=== PATIENT | female | born 1945 | race Caucasian/White ===

== ENCOUNTER 2018-06-20 13:45 | Inpatient (IN) | payer MEDICARE, MEDICAID ==
[~2018-06-20] VITALS: Ht 165.1 cm; Wt 80.0 kg
[~2018-06-20 13:45] MED LIST: NO HOME MEDS
[2018-06-20] MEDS ORDERED: normal saline 1000ML IV soln IVB ONE (13:55)
[2018-06-20 14:18] LABS: BASOPHILS # (AUTO) 0.1 X10'3 (0-0.2); BASOPHILS % (AUTO) 1.1 % (0-1); EOSINOPHILS # (AUTO) 0.2 X10'3 (0-0.9); EOSINOPHILS % (AUTO) 2.9 % (0-6); HEMATOCRIT 31.9 % (35.0-45.0); HEMOGLOBIN 10.6 g/dl (12.0-16.0); MEAN CORPUSCULAR HEMOGLOBIN 29.8 PG (27.0-31.0); MEAN CORPUSCULAR HGB CONC 33.2 % (33.0-36.5); MEAN PLATELET VOLUME 7.2 FL (7.4-10.4); MONOCYTES # (AUTO) 0.3 X10'3 (0-0.9); MONOCYTES % (AUTO) 5.1 % (2-12); NEUTROPHILS # (AUTO) 4.5 X10'3 (1.8-7.7); NEUTROPHILS % (AUTO) 74.9 % (42-75); PLATELET COUNT 271 X10'3 (140-440); RED BLOOD COUNT 3.55 X10'6 (4.20-5.60); RED CELL DISTRIBUTION WIDTH 16.6 % (11.5-14.5)
[2018-06-20 14:32] LABS: ALANINE AMINOTRANSFERASE 29 U/L (12-78); ALBUMIN 3.1 G/DL (3.4-5.0); ALBUMIN/GLOBULIN RATIO 0.8 (1.1-1.5); ALKALINE PHOSPHATASE 106 IU/L (46-116); ANION GAP 11 (8-16); ASPARTATE AMINO TRANSFERASE 19 U/L (10-37); BLOOD UREA NITROGEN 17 MG/DL (7-18); BUN/CREATININE RATIO 16.3 (6.6-38.0); CALCIUM 8.8 MG/DL (8.5-10.1); CHLORIDE 104 MMOL/L (99-107); CREATININE 1.04 MG/DL (0.40-0.90); GLUCOSE 80 MG/DL (70-104); POTASSIUM 3.6 MMOL/L (3.5-5.1); SODIUM 141 MMOL/L (135-145); TOTAL CARBON DIOXIDE 26.2 MMOL/L (24-32); TOTAL PROTEIN 7.1 G/DL (6.4-8.2); eGFR 52 ML/MIN
[2018-06-20 14:51] LABS: CLARITY,URINE CLEAR (Clear); COLOR,URINE YELLOW (Yellow); GLUCOSE, URINE NEGATIVE (Neg); KETONES,URINE TRACE mg/dl (Neg); LEUKOCYTE ESTERASE ,URINE NEGATIVE (Neg); NITRITES, URINE NEGATIVE (Neg); OCCULT BLOOD,URINE NEGATIVE (Neg); PH,URINE 6.5 (4.8-8.0); PROTEIN,URINE NEGATIVE (Neg)
[2018-06-20 14:52] LABS: UA COLLECTION TYPE CLN CATCH MIDSTREAM
[2018-06-20] MEDS ORDERED: CARB-13 PO (17:37)
[2018-06-20] MEDS ORDERED: QUET25TA34 PO (17:37)
[2018-06-20] MEDS ORDERED: VENL75CA61 PO (17:38)
[2018-06-20] MEDS ORDERED: ondansetron/PF 4mg/2ml inj IV PRN (18:55)
[2018-06-20] MEDS ORDERED: potassium Cl 40MEQ/NS 500ml 500 ML IV PRN ×2 (18:55)
[2018-06-20] MEDS ORDERED: potassium Cl 20 mEq SR tablet PO PRN ×2 (18:55)
[2018-06-20] MEDS ORDERED: acetaminophen 325mg tablet PO PRN ×2 (18:55)
[2018-06-20] MEDS ORDERED: mag hydrox/Alum hydrox/simeth 30ml oral suspension PO PRN (18:55)
[2018-06-20] MEDS ORDERED: magnesium hydroxide 30ml (MOM) UD suspension PO PRN (18:55)
[2018-06-20] MEDS ORDERED: magnesium 4gm in 100ml NS 100 ML IV PRN (18:55)
[2018-06-20] MEDS ORDERED: CARB1TAB44 PO (19:41)
[2018-06-20] MEDS: normal saline 1000ml 1,000 ML IV SCH (21:03)
[2018-06-20] MEDS: QUEtiapine 25mg tablet PO SCH (21:04)
[2018-06-20] MEDS: carbidoba-levodopa 25-100mg tablet PO SCH (21:04)
[2018-06-20 22:00] VITALS: BP 138/54
[2018-06-21] MEDS: temazepam 15mg capsule PO PRN ×2 (01:31→20:50)
[2018-06-21 02:00] VITALS: BP 129/63
[2018-06-21 06:00] VITALS: BP 109/58
[2018-06-21 06:13] LABS: HEMATOCRIT 28.2 % (35.0-45.0); HEMOGLOBIN 9.4 g/dl (12.0-16.0); MEAN CORPUSCULAR HEMOGLOBIN 29.9 PG (27.0-31.0); MEAN CORPUSCULAR HGB CONC 33.3 % (33.0-36.5); MEAN CORPUSCULAR VOLUME 89.6 FL (78-98); MEAN PLATELET VOLUME 7.3 FL (7.4-10.4); PLATELET COUNT 244 X10'3 (140-440); RED BLOOD COUNT 3.15 X10'6 (4.20-5.60); RED CELL DISTRIBUTION WIDTH 16.6 % (11.5-14.5); WHITE BLOOD COUNT 5.6 X10'3 (4.5-11.0)
[2018-06-21 06:23] LABS: ALBUMIN 2.6 G/DL (3.4-5.0); ANION GAP 9 (8-16); BLOOD UREA NITROGEN 17 MG/DL (7-18); BUN/CREATININE RATIO 16.8 (6.6-38.0); CALCIUM 8.3 MG/DL (8.5-10.1); CHLORIDE 106 MMOL/L (99-107); CHOL/HDL RATIO 2.6 (0.00-4.99); CHOLESTEROL 145 MG/DL (0-200); CREATININE 1.01 MG/DL (0.40-0.90); GLUCOSE 97 MG/DL (70-104); HDL CHOLESTEROL 55 MG/DL (35-60); MAGNESIUM 1.4 MG/DL (1.5-2.4); POTASSIUM 3.7 MMOL/L (3.5-5.1); SODIUM 140 MMOL/L (135-145); TRIGLYCERIDES 63 MG/DL (20-135); eGFR 54 ML/MIN
[2018-06-21 06:25] LABS: LDL CHOLESTEROL 79 MG/DL (50-100)
[2018-06-21] MEDS: carbidoba-levodopa 25-100mg tablet PO SCH ×3 (08:00→21:00)
[2018-06-21] MEDS: K and/or MAG REPLACEMENT MC SCH (08:00)
[2018-06-21] MEDS: venlafaxine XR 75mg capsule (Q24H) PO SCH (08:00)
[2018-06-21] MEDS ORDERED: carbidopa/levodopa 10/100mg tab PO SCH (08:00)
[2018-06-21] MEDS: magnesium Cl slow-release 64mg tablet PO PRN ×2 (08:22→19:16)
[2018-06-21] MEDS: normal saline 1000ml 1,000 ML IV SCH ×2 (09:11→23:29)
[2018-06-21 10:00] VITALS: BP 113/44
[2018-06-21] MEDS: traMADol 50MG tablet PO PRN ×2 (14:55→19:17)
[2018-06-21 18:00] VITALS: BP 133/51
[2018-06-21] MEDS: QUEtiapine 25mg tablet PO SCH (20:50)
[2018-06-21 22:00] VITALS: BP 119/39
[2018-06-22] MEDS: traMADol 50MG tablet PO PRN ×5 (04:57→21:20)
[2018-06-22 06:00] VITALS: BP 114/53
[2018-06-22 06:26] LABS: HEMATOCRIT 28.1 % (35.0-45.0); HEMOGLOBIN 9.2 g/dl (12.0-16.0); MEAN CORPUSCULAR HEMOGLOBIN 29.5 PG (27.0-31.0); MEAN CORPUSCULAR HGB CONC 32.8 % (33.0-36.5); MEAN CORPUSCULAR VOLUME 90.1 FL (78-98); MEAN PLATELET VOLUME 7.2 FL (7.4-10.4); PLATELET COUNT 214 X10'3 (140-440); RED BLOOD COUNT 3.12 X10'6 (4.20-5.60); RED CELL DISTRIBUTION WIDTH 16.7 % (11.5-14.5); WHITE BLOOD COUNT 5.5 X10'3 (4.5-11.0)
[2018-06-22 06:59] LABS: ALBUMIN 2.4 G/DL (3.4-5.0); ANION GAP 8 (8-16); BLOOD UREA NITROGEN 17 MG/DL (7-18); BUN/CREATININE RATIO 15.7 (6.6-38.0); CALCIUM 8.2 MG/DL (8.5-10.1); CHLORIDE 105 MMOL/L (99-107); CREATININE 1.08 MG/DL (0.40-0.90); GLUCOSE 103 MG/DL (70-104); MAGNESIUM 1.4 MG/DL (1.5-2.4); POTASSIUM 3.7 MMOL/L (3.5-5.1); SODIUM 138 MMOL/L (135-145); TOTAL CARBON DIOXIDE 24.6 MMOL/L (24-32); eGFR 50 ML/MIN
[2018-06-22] MEDS: carbidoba-levodopa 25-100mg tablet PO SCH ×3 (08:00→21:20)
[2018-06-22] MEDS: K and/or MAG REPLACEMENT MC SCH (08:00)
[2018-06-22] MEDS: enoxaparin 40mg/0.4ml syringe SUBCUT SCH (08:00)
[2018-06-22] MEDS: venlafaxine XR 75mg capsule (Q24H) PO SCH (08:00)
[2018-06-22] MEDS: magnesium Cl slow-release 64mg tablet PO PRN ×3 (08:26→21:33)
[2018-06-22 10:00] VITALS: BP 115/61
[2018-06-22] MEDS: normal saline 1000ml 1,000 ML IV SCH (10:44)
[2018-06-22 14:00] VITALS: BP 110/46
[2018-06-22 18:00] VITALS: BP 116/59
[2018-06-22] MEDS: QUEtiapine 25mg tablet PO SCH (21:20)
[2018-06-22 22:00] VITALS: BP 110/45
[2018-06-23] MEDS: normal saline 1000ml 1,000 ML IV SCH (00:37)
[2018-06-23 06:00] VITALS: BP 103/45
[2018-06-23 06:32] LABS: HEMATOCRIT 27.3 % (35.0-45.0); HEMOGLOBIN 8.9 g/dl (12.0-16.0); MEAN CORPUSCULAR HEMOGLOBIN 29.5 PG (27.0-31.0); MEAN CORPUSCULAR HGB CONC 32.8 % (33.0-36.5); MEAN CORPUSCULAR VOLUME 90.1 FL (78-98); MEAN PLATELET VOLUME 7.4 FL (7.4-10.4); PLATELET COUNT 203 X10'3 (140-440); RED BLOOD COUNT 3.03 X10'6 (4.20-5.60); RED CELL DISTRIBUTION WIDTH 16.6 % (11.5-14.5); WHITE BLOOD COUNT 5.3 X10'3 (4.5-11.0)
[2018-06-23 06:43] LABS: ALBUMIN 2.3 G/DL (3.4-5.0); ANION GAP 8 (8-16); CALCIUM 8.2 MG/DL (8.5-10.1); CHLORIDE 106 MMOL/L (99-107); CREATININE 1.06 MG/DL (0.40-0.90); GLUCOSE 100 MG/DL (70-104); MAGNESIUM 1.5 MG/DL (1.5-2.4); POTASSIUM 3.8 MMOL/L (3.5-5.1); SODIUM 138 MMOL/L (135-145); TOTAL CARBON DIOXIDE 24.1 MMOL/L (24-32); eGFR 51 ML/MIN
[2018-06-23 06:59] LABS: BLOOD UREA NITROGEN 16 MG/DL (7-18); BUN/CREATININE RATIO 15.1 (6.6-38.0)
[2018-06-23] MEDS: K and/or MAG REPLACEMENT MC SCH (07:08)
[2018-06-23] MEDS: carbidoba-levodopa 25-100mg tablet PO SCH (08:45)
[2018-06-23] MEDS: QUEtiapine 25mg tablet PO SCH (08:45)
[2018-06-23] MEDS: venlafaxine XR 75mg capsule (Q24H) PO SCH (08:45)
[2018-06-23] MEDS: enoxaparin 40mg/0.4ml syringe SUBCUT SCH (08:46)
[2018-06-23] MEDS: traMADol 50MG tablet PO PRN (08:46)
== END 2018-06-23 11:50 | DRG 57 ==
LOC: ER 13:46 → ORTHO 4S 18:53
PROVIDERS: ADMIT Family Medicine; ATTEND Family Medicine
DX: G20 Parkinson's disease (principal); I69.354 Hemiplegia and hemiparesis following cerebral infarction affecting left non-dominant side; F12.10 Cannabis abuse, uncomplicated; F41.1 Generalized anxiety disorder; F43.10 Post-traumatic stress disorder, unspecified; G40.909 Epilepsy, unspecified, not intractable, without status epilepticus; I25.10 Atherosclerotic heart disease of native coronary artery without angina pectoris; K74.60 Unspecified cirrhosis of liver; N18.9 Chronic kidney disease, unspecified; M17.11 Unilateral primary osteoarthritis, right knee; R29.6 Repeated falls; Z66 Do not resuscitate; F32.9 Major depressive disorder, single episode, unspecified; Z60.2 Problems related to living alone; M25.461 Effusion, right knee; Z91.19 Patient's noncompliance with other medical treatment and regimen; Z90.49 Acquired absence of other specified parts of digestive tract; Z98.51 Tubal ligation status; Z88.6 Allergy status to analgesic agent; Z88.8 Allergy status to other drugs, medicaments and biological substances; Z79.899 Other long term (current) drug therapy; Z87.891 Personal history of nicotine dependence
CPT/HCPCS: 36415; 70450; 71045; 72128; 72131; 72170; 73564; 80048; 80053; 80061; 81003; 83735; 84443; 85025; 85027; 87070; 96360; 97110; 97161; 97530; 97535; 99285; G0378; J1650; J7030

== ENCOUNTER 2018-10-16 06:23 | Inpatient (IN) | payer MEDICARE, MEDICAID | END 2018-10-18 16:37 | disposition home health service (06) | LOC: ER 06:23 → PCU 3S 09:48 | DX: I48.91 Unspecified atrial fibrillation (principal); G20 Parkinson's disease; F12.90 Cannabis use, unspecified, uncomplicated ==

== ENCOUNTER 2019-01-27 12:10 | Inpatient (IN) | payer MEDICARE, MEDICAID ==
[~2019-01-27] VITALS: Ht 166.4 cm; Wt 79.5 kg
[~2019-01-27 12:10] MED LIST changes: +APIX5TAB3 PO; +CARB1TAB44 PO; +CARCD120C PO; -NO HOME MEDS; +OMEP-50 PO; +QUET25TA34 PO
[2019-01-27 13:45] LABS: BASOPHILS % (AUTO) 0.5 % (0-1); EOSINOPHILS % (AUTO) 0.3 % (0-6); HEMATOCRIT 33.8 % (35.0-45.0); HEMOGLOBIN 11.5 g/dl (12.0-16.0); LYMPHOCYTES # (AUTO) 0.9 X10'3 (1.1-4.8); LYMPHOCYTES % (AUTO) 14.4 % (21-51); MEAN CORPUSCULAR HEMOGLOBIN 31.1 PG (27.0-31.0); MEAN CORPUSCULAR HGB CONC 33.9 g/dL (33.0-36.5); MEAN CORPUSCULAR VOLUME 91.7 FL (78-98); MEAN PLATELET VOLUME 7.2 FL (7.4-10.4); MONOCYTES # (AUTO) 0.3 X10'3 (0-0.9); MONOCYTES % (AUTO) 4.6 % (2-12); NEUTROPHILS # (AUTO) 5.2 X10'3 (1.8-7.7); NEUTROPHILS % (AUTO) 80.2 % (42-75); PLATELET COUNT 184 X10'3 (140-440); RED BLOOD COUNT 3.69 X10'6 (4.20-5.60); RED CELL DISTRIBUTION WIDTH 15.6 % (11.5-14.5); WHITE BLOOD COUNT 6.4 X10'3 (4.5-11.0)
[2019-01-27 14:03] LABS: ALANINE AMINOTRANSFERASE 20 U/L (12-78); ALBUMIN 3.4 G/DL (3.4-5.0); ALBUMIN/GLOBULIN RATIO 0.8 (1.1-1.5); ALKALINE PHOSPHATASE 88 IU/L (46-116); ANION GAP 10 (8-16); ASPARTATE AMINO TRANSFERASE 17 U/L (10-37); BLOOD UREA NITROGEN 34 MG/DL (7-18); BUN/CREATININE RATIO 25.8 (6.6-38.0); CALCIUM 8.8 MG/DL (8.5-10.1); CHLORIDE 104 MMOL/L (99-107); CREATININE 1.32 MG/DL (0.40-0.90); GLUCOSE 80 MG/DL (70-104); POTASSIUM 3.9 MMOL/L (3.5-5.1); SODIUM 140 MMOL/L (135-145); TOTAL CARBON DIOXIDE 25.8 MMOL/L (24-32); TOTAL PROTEIN 7.6 G/DL (6.4-8.2); eGFR 40 ML/MIN
[2019-01-27] MEDS ORDERED: QUET25TA34 PO (17:06)
[2019-01-27] MEDS ORDERED: CARB1TAB23 PO (17:06)
[2019-01-27] MEDS ORDERED: OMEP20CA11 PO (17:06)
[2019-01-27] MEDS ORDERED: diphenhydrAMINE 25mg capsule PO PRN (17:30)
[2019-01-27] MEDS ORDERED: potassium Cl 20 mEq SR tablet PO PRN ×2 (17:30)
[2019-01-27] MEDS ORDERED: potassium CL 10mEq/100ml bag 100 ML IV PRN ×2 (17:30)
[2019-01-27] MEDS ORDERED: magnesium 4gm in 100ml NS 100 ML IV PRN (17:30)
[2019-01-27] MEDS: K and/or MAG REPLACEMENT MC SCH (17:30)
[2019-01-27] MEDS ORDERED: ondansetron/PF 4mg/2ml inj IV PRN (17:30)
[2019-01-27] MEDS ORDERED: magnesium 2GM in 50ml NS 50 ML IV PRN (17:30)
[2019-01-27] MEDS ORDERED: diphenhydrAMINE 50 mg/ml inj IV PRN (17:30)
[2019-01-27] MEDS ORDERED: magnesium Cl slow-release 64mg tablet PO PRN (17:30)
[2019-01-27] MEDS ORDERED: bisacodyl 10mg suppository rectal RC PRN (17:30)
[2019-01-27] MEDS ORDERED: PHEN-824 PO (17:36)
[2019-01-27] MEDS ORDERED: TRAM50TA2 PO (17:36)
[2019-01-27] MEDS ORDERED: PHEN-888 PO (17:38)
[2019-01-27 18:25] LABS: CLARITY,URINE SLIGHTLY CLOUDY (Clear); COLOR,URINE YELLOW (Yellow); GLUCOSE, URINE NEGATIVE (Neg); KETONES,URINE 15 mg/dl (Neg); LEUKOCYTE ESTERASE ,URINE NEGATIVE (Neg); NITRITES, URINE NEGATIVE (Neg); OCCULT BLOOD,URINE LARGE (Neg); PH,URINE 5.5 (4.8-8.0); PROTEIN,URINE NEGATIVE (Neg)
[2019-01-27 18:28] LABS: UA COLLECTION TYPE CLN CATCH MIDSTREAM
[2019-01-27 18:34] LABS: RBC,URINE 50-100 /HPF (0-2); WBC,URINE 0-4 /HPF (0-4)
[2019-01-27] MEDS: normal saline 1000ml 1,000 ML IV SCH (18:34)
[2019-01-27 18:35] LABS: BACTERIA,URINE FEW /HPF (Neg); MUCUS STRANDS NONE SEEN /LPF (Neg); SQUAMOUS EPITHELIAL CELL,UR MANY /LPF (FEW)
[2019-01-27 19:00] VITALS: BP 125/32
--- NOTE | 2019-01-27 19:00 | NUR ---
Patient in room ORTHO 4008. I have received report from ZAYRA Tyler and had the opportunity to ask questions and assume patient care.
[2019-01-27] MEDS: QUEtiapine 25mg tablet PO SCH (19:38)
[2019-01-27] MEDS: carbidoba-levodopa 25-100mg tablet PO SCH (19:38)
[2019-01-27] MEDS: heparin, porcine 5000 units/ml vial SQ SCH (19:39)
[2019-01-27 20:00] VITALS: BP_SYST 100; BP_SYST 101; BP_SYST 125; BP_DIAS 32; BP_DIAS 48; BP_DIAS 57
[2019-01-27] MEDS: traMADol 50MG tablet PO PRN (21:09)
[2019-01-27 22:00] VITALS: BP 100/57
[2019-01-28] MEDS: normal saline 1000ml 1,000 ML IV SCH ×3 (03:56→23:38)
[2019-01-28 06:00] VITALS: BP 113/61
--- NOTE | 2019-01-28 06:00 | NUR ---
Patient in room ORTHO 4008. I have received report from LUISITO IVERSON and had the opportunity to ask questions and assume patient care.
[2019-01-28] MEDS: traMADol 50MG tablet PO PRN ×2 (06:26→16:31)
--- NOTE | 2019-01-28 06:29 | NUR ---
Problems reprioritized. Patient report given, questions answered & plan of care reviewed with ZAYRA Brown.
[2019-01-28 06:34] LABS: BASOPHILS % (AUTO) 0.3 % (0-1); EOSINOPHILS # (AUTO) 0.1 X10'3 (0-0.9); EOSINOPHILS % (AUTO) 3.5 % (0-6); HEMATOCRIT 29.8 % (35.0-45.0); HEMOGLOBIN 10.1 g/dl (12.0-16.0); LYMPHOCYTES # (AUTO) 1.2 X10'3 (1.1-4.8); LYMPHOCYTES % (AUTO) 29.4 % (21-51); MEAN CORPUSCULAR HEMOGLOBIN 31.2 PG (27.0-31.0); MEAN CORPUSCULAR VOLUME 91.7 FL (78-98); MEAN PLATELET VOLUME 7.6 FL (7.4-10.4); MONOCYTES # (AUTO) 0.3 X10'3 (0-0.9); MONOCYTES % (AUTO) 6.2 % (2-12); NEUTROPHILS # (AUTO) 2.5 X10'3 (1.8-7.7); NEUTROPHILS % (AUTO) 60.6 % (42-75); PLATELET COUNT 154 X10'3 (140-440); RED BLOOD COUNT 3.25 X10'6 (4.20-5.60); RED CELL DISTRIBUTION WIDTH 15.9 % (11.5-14.5); WHITE BLOOD COUNT 4.1 X10'3 (4.5-11.0)
[2019-01-28 06:46] LABS: ALANINE AMINOTRANSFERASE 10 U/L (12-78); ALBUMIN 2.9 G/DL (3.4-5.0); ALBUMIN/GLOBULIN RATIO 0.8 (1.1-1.5); ALKALINE PHOSPHATASE 75 IU/L (46-116); ANION GAP 10 (8-16); ASPARTATE AMINO TRANSFERASE 20 U/L (10-37); BILIRUBIN,TOTAL 0.9 MG/DL (0.1-1.0); BLOOD UREA NITROGEN 31 MG/DL (7-18); BUN/CREATININE RATIO 27.9 (6.6-38.0); CALCIUM 7.9 MG/DL (8.5-10.1); CHLORIDE 107 MMOL/L (99-107); CHOL/HDL RATIO 2.6 (0.00-4.99); CHOLESTEROL 143 MG/DL (0-200); CREATININE 1.11 MG/DL (0.40-0.90); GLUCOSE 79 MG/DL (70-104); HDL CHOLESTEROL 54 MG/DL (35-60); LDL CHOLESTEROL 82 MG/DL (50-100); MAGNESIUM 1.5 MG/DL (1.5-2.4); PHOSPHORUS 3.1 MG/DL (2.3-4.5); POTASSIUM 3.8 MMOL/L (3.5-5.1); SODIUM 140 MMOL/L (135-145); TOTAL CARBON DIOXIDE 23.5 MMOL/L (24-32); TOTAL PROTEIN 6.5 G/DL (6.4-8.2); TRIGLYCERIDES 51 MG/DL (20-135); eGFR 48 ML/MIN
[2019-01-28] MEDS: K and/or MAG REPLACEMENT MC SCH (08:00)
[2019-01-28] MEDS: heparin, porcine 5000 units/ml vial SQ SCH ×2 (08:00→19:49)
[2019-01-28] MEDS: pantoprazole 40mg Tablet.DR PO SCH (08:27)
[2019-01-28 10:00] VITALS: BP 120/48
[2019-01-28] MEDS: carbidoba-levodopa 25-100mg tablet PO SCH ×3 (12:53→19:49)
[2019-01-28 18:00] VITALS: BP 101/51
--- NOTE | 2019-01-28 18:05 | NUR ---
Problems reprioritized. Patient report given, questions answered & plan of care reviewed with CELESTINE IVERSON.
[2019-01-28] MEDS ORDERED: benzocaine/menthol oral lozeng 1 EACH BOX MM PRN (18:35)
[2019-01-28] MEDS: QUEtiapine 25mg tablet PO SCH (19:49)
[2019-01-28 22:00] VITALS: BP 103/49
[2019-01-29 06:38] LABS: BASOPHILS % (AUTO) 0.4 % (0-1); EOSINOPHILS # (AUTO) 0.1 X10'3 (0-0.9); EOSINOPHILS % (AUTO) 2.4 % (0-6); HEMATOCRIT 27.5 % (35.0-45.0); HEMOGLOBIN 9.5 g/dl (12.0-16.0); LYMPHOCYTES # (AUTO) 1.2 X10'3 (1.1-4.8); LYMPHOCYTES % (AUTO) 22.9 % (21-51); MEAN CORPUSCULAR HEMOGLOBIN 31.5 PG (27.0-31.0); MEAN CORPUSCULAR HGB CONC 34.4 g/dL (33.0-36.5); MEAN CORPUSCULAR VOLUME 91.4 FL (78-98); MEAN PLATELET VOLUME 7.4 FL (7.4-10.4); MONOCYTES # (AUTO) 0.3 X10'3 (0-0.9); MONOCYTES % (AUTO) 6.2 % (2-12); NEUTROPHILS # (AUTO) 3.5 X10'3 (1.8-7.7); NEUTROPHILS % (AUTO) 68.1 % (42-75); PLATELET COUNT 126 X10'3 (140-440); RED BLOOD COUNT 3.01 X10'6 (4.20-5.60); RED CELL DISTRIBUTION WIDTH 15.4 % (11.5-14.5); WHITE BLOOD COUNT 5.1 X10'3 (4.5-11.0)
[2019-01-29 06:54] LABS: ALANINE AMINOTRANSFERASE 10 U/L (12-78); ALBUMIN 2.5 G/DL (3.4-5.0); ALBUMIN/GLOBULIN RATIO 0.8 (1.1-1.5); ALKALINE PHOSPHATASE 73 IU/L (46-116); ANION GAP 9 (8-16); ASPARTATE AMINO TRANSFERASE 21 U/L (10-37); BILIRUBIN,TOTAL 0.6 MG/DL (0.1-1.0); BLOOD UREA NITROGEN 22 MG/DL (7-18); BUN/CREATININE RATIO 20.8 (6.6-38.0); CHLORIDE 110 MMOL/L (99-107); CREATININE 1.06 MG/DL (0.40-0.90); GLUCOSE 99 MG/DL (70-104); MAGNESIUM 1.4 MG/DL (1.5-2.4); PHOSPHORUS 2.8 MG/DL (2.3-4.5); POTASSIUM 3.8 MMOL/L (3.5-5.1); SODIUM 141 MMOL/L (135-145); TOTAL CARBON DIOXIDE 22.3 MMOL/L (24-32); TOTAL PROTEIN 5.8 G/DL (6.4-8.2); eGFR 51 ML/MIN
[2019-01-29] MEDS: traMADol 50MG tablet PO PRN ×3 (07:46→22:48)
[2019-01-29] MEDS: pantoprazole 40mg Tablet.DR PO SCH (07:48)
[2019-01-29] MEDS: heparin, porcine 5000 units/ml vial SQ SCH ×2 (07:48→19:14)
[2019-01-29] MEDS: normal saline 1000ml 1,000 ML IV SCH ×2 (07:48→20:55)
[2019-01-29] MEDS: K and/or MAG REPLACEMENT MC SCH (08:00)
[2019-01-29] MEDS: carbidoba-levodopa 25-100mg tablet PO SCH ×3 (14:04→20:54)
[2019-01-29 17:00] VITALS: BP 106/57
[2019-01-29] MEDS: QUEtiapine 25mg tablet PO SCH (20:54)
[2019-01-29 22:00] VITALS: BP 102/53
[2019-01-29 22:15] VITALS: BP_SYST 104; BP_SYST 94; BP_DIAS 50; BP_DIAS 51
[2019-01-30 06:00] VITALS: BP 116/66
[2019-01-30 06:05] LABS: BASOPHILS % (AUTO) 0.3 % (0-1); EOSINOPHILS # (AUTO) 0.1 X10'3 (0-0.9); EOSINOPHILS % (AUTO) 2.4 % (0-6); HEMATOCRIT 27.6 % (35.0-45.0); HEMOGLOBIN 9.4 g/dl (12.0-16.0); LYMPHOCYTES # (AUTO) 1.1 X10'3 (1.1-4.8); LYMPHOCYTES % (AUTO) 22.5 % (21-51); MEAN CORPUSCULAR HEMOGLOBIN 31.4 PG (27.0-31.0); MEAN CORPUSCULAR HGB CONC 34.2 g/dL (33.0-36.5); MEAN CORPUSCULAR VOLUME 91.8 FL (78-98); MEAN PLATELET VOLUME 7.6 FL (7.4-10.4); MONOCYTES # (AUTO) 0.4 X10'3 (0-0.9); MONOCYTES % (AUTO) 7.2 % (2-12); NEUTROPHILS # (AUTO) 3.4 X10'3 (1.8-7.7); NEUTROPHILS % (AUTO) 67.6 % (42-75); PLATELET COUNT 124 X10'3 (140-440); RED BLOOD COUNT 3.01 X10'6 (4.20-5.60); WHITE BLOOD COUNT 5.1 X10'3 (4.5-11.0)
[2019-01-30 06:16] LABS: ALANINE AMINOTRANSFERASE 10 U/L (12-78); ALBUMIN 2.3 G/DL (3.4-5.0); ALBUMIN/GLOBULIN RATIO 0.7 (1.1-1.5); ALKALINE PHOSPHATASE 69 IU/L (46-116); ANION GAP 8 (8-16); ASPARTATE AMINO TRANSFERASE 14 U/L (10-37); BILIRUBIN,TOTAL 0.6 MG/DL (0.1-1.0); BLOOD UREA NITROGEN 12 MG/DL (7-18); BUN/CREATININE RATIO 12.6 (6.6-38.0); CALCIUM 7.3 MG/DL (8.5-10.1); CHLORIDE 108 MMOL/L (99-107); CREATININE 0.95 MG/DL (0.40-0.90); GLUCOSE 103 MG/DL (70-104); MAGNESIUM 2.3 MG/DL (1.5-2.4); PHOSPHORUS 2.6 MG/DL (2.3-4.5); POTASSIUM 3.6 MMOL/L (3.5-5.1); SODIUM 139 MMOL/L (135-145); TOTAL CARBON DIOXIDE 22.8 MMOL/L (24-32); TOTAL PROTEIN 5.8 G/DL (6.4-8.2); eGFR 58 ML/MIN
--- NOTE | 2019-01-30 06:30 | NUR ---
Patient report given, questions answered & plan of care reviewed with Shobha IVERSON.
[2019-01-30] MEDS: traMADol 50MG tablet PO PRN ×2 (06:48→19:23)
[2019-01-30] MEDS: K and/or MAG REPLACEMENT MC SCH (08:00)
[2019-01-30] MEDS: pantoprazole 40mg Tablet.DR PO SCH (08:02)
[2019-01-30] MEDS: normal saline 1000ml 1,000 ML IV SCH (08:04)
[2019-01-30] MEDS: heparin, porcine 5000 units/ml vial SQ SCH ×2 (08:04→19:22)
[2019-01-30] MEDS: carbidoba-levodopa 25-100mg tablet PO SCH ×3 (11:13→19:31)
[2019-01-30 17:00] VITALS: BP 130/36
[2019-01-30] MEDS: dronabinol 2.5mg capsule PO PRN (19:23)
[2019-01-30] MEDS: QUEtiapine 25mg tablet PO SCH (19:31)
[2019-01-30 22:00] VITALS: BP 123/43
[2019-01-31] MEDS: traMADol 50MG tablet PO PRN ×2 (04:57→15:08)
[2019-01-31 05:59] LABS: BASOPHILS % (AUTO) 0.4 % (0-1); EOSINOPHILS # (AUTO) 0.1 X10'3 (0-0.9); EOSINOPHILS % (AUTO) 2.6 % (0-6); HEMATOCRIT 27.4 % (35.0-45.0); HEMOGLOBIN 9.4 g/dl (12.0-16.0); LYMPHOCYTES # (AUTO) 0.9 X10'3 (1.1-4.8); LYMPHOCYTES % (AUTO) 17.2 % (21-51); MEAN CORPUSCULAR HEMOGLOBIN 31.1 PG (27.0-31.0); MEAN CORPUSCULAR HGB CONC 34.4 g/dL (33.0-36.5); MEAN CORPUSCULAR VOLUME 90.4 FL (78-98); MEAN PLATELET VOLUME 8.1 FL (7.4-10.4); MONOCYTES # (AUTO) 0.3 X10'3 (0-0.9); NEUTROPHILS # (AUTO) 4.1 X10'3 (1.8-7.7); NEUTROPHILS % (AUTO) 73.8 % (42-75); PLATELET COUNT 153 X10'3 (140-440); RED BLOOD COUNT 3.03 X10'6 (4.20-5.60); RED CELL DISTRIBUTION WIDTH 15.1 % (11.5-14.5); WHITE BLOOD COUNT 5.5 X10'3 (4.5-11.0)
[2019-01-31 06:00] VITALS: BP 110/39
[2019-01-31 06:14] LABS: ALANINE AMINOTRANSFERASE 8 U/L (12-78); ALBUMIN 2.4 G/DL (3.4-5.0); ALBUMIN/GLOBULIN RATIO 0.6 (1.1-1.5); ALKALINE PHOSPHATASE 71 IU/L (46-116); ANION GAP 8 (8-16); ASPARTATE AMINO TRANSFERASE 15 U/L (10-37); BILIRUBIN,TOTAL 0.6 MG/DL (0.1-1.0); BLOOD UREA NITROGEN 13 MG/DL (7-18); BUN/CREATININE RATIO 12.6 (6.6-38.0); CALCIUM 8.2 MG/DL (8.5-10.1); CHLORIDE 107 MMOL/L (99-107); CREATININE 1.03 MG/DL (0.40-0.90); GLUCOSE 106 MG/DL (70-104); MAGNESIUM 1.7 MG/DL (1.5-2.4); PHOSPHORUS 2.7 MG/DL (2.3-4.5); SODIUM 138 MMOL/L (135-145); TOTAL CARBON DIOXIDE 22.8 MMOL/L (24-32); TOTAL PROTEIN 6.1 G/DL (6.4-8.2); eGFR 53 ML/MIN
--- NOTE | 2019-01-31 06:20 | NUR ---
Patient report given, questions answered & plan of care reviewed with Shobha IVERSON.
--- NOTE | 2019-01-31 06:44 | NUR ---
Report received ZAYRA Donovan
[2019-01-31] MEDS: K and/or MAG REPLACEMENT MC SCH (08:00)
[2019-01-31] MEDS: pantoprazole 40mg Tablet.DR PO SCH (09:33)
[2019-01-31] MEDS: heparin, porcine 5000 units/ml vial SQ SCH ×2 (09:34→19:48)
[2019-01-31 10:00] VITALS: BP 112/63
--- NOTE | 2019-01-31 13:00 | NUR ---
Unable to get Orthostatic vitals, pt will not cooperate. PT made attempts
[2019-01-31] MEDS: carbidoba-levodopa 25-100mg tablet PO SCH ×3 (15:07→19:48)
[2019-01-31 18:00] VITALS: BP 124/53
--- NOTE | 2019-01-31 18:43 | NUR ---
Patient in room ORTHO 4012. I have received report from mary jo Yeager and had the opportunity to ask questions and assume patient care.
[2019-01-31] MEDS: QUEtiapine 25mg tablet PO SCH (20:00)
[2019-01-31] MEDS: dronabinol 2.5mg capsule PO PRN (21:08)
[2019-01-31 22:00] VITALS: BP 100/33
[2019-02-01] MEDS: dronabinol 2.5mg capsule PO PRN ×3 (02:46→20:45)
[2019-02-01] MEDS: traMADol 50MG tablet PO PRN ×2 (02:58→15:38)
[2019-02-01 05:00] VITALS: BP 104/47
[2019-02-01 05:38] LABS: BASOPHILS % (AUTO) 0.4 % (0-1); EOSINOPHILS # (AUTO) 0.2 X10'3 (0-0.9); EOSINOPHILS % (AUTO) 2.5 % (0-6); HEMATOCRIT 28.1 % (35.0-45.0); HEMOGLOBIN 9.8 g/dl (12.0-16.0); LYMPHOCYTES # (AUTO) 0.7 X10'3 (1.1-4.8); LYMPHOCYTES % (AUTO) 11.9 % (21-51); MEAN CORPUSCULAR HEMOGLOBIN 31.8 PG (27.0-31.0); MEAN CORPUSCULAR HGB CONC 34.9 g/dL (33.0-36.5); MEAN CORPUSCULAR VOLUME 91.3 FL (78-98); MEAN PLATELET VOLUME 7.4 FL (7.4-10.4); MONOCYTES # (AUTO) 0.4 X10'3 (0-0.9); MONOCYTES % (AUTO) 6.3 % (2-12); NEUTROPHILS # (AUTO) 4.9 X10'3 (1.8-7.7); NEUTROPHILS % (AUTO) 78.9 % (42-75); PLATELET COUNT 174 X10'3 (140-440); RED BLOOD COUNT 3.08 X10'6 (4.20-5.60); RED CELL DISTRIBUTION WIDTH 15.3 % (11.5-14.5); WHITE BLOOD COUNT 6.2 X10'3 (4.5-11.0)
[2019-02-01 05:59] LABS: ALANINE AMINOTRANSFERASE 8 U/L (12-78); ALBUMIN 2.4 G/DL (3.4-5.0); ALBUMIN/GLOBULIN RATIO 0.6 (1.1-1.5); ALKALINE PHOSPHATASE 69 IU/L (46-116); ANION GAP 7 (8-16); ASPARTATE AMINO TRANSFERASE 15 U/L (10-37); BILIRUBIN,TOTAL 0.6 MG/DL (0.1-1.0); BLOOD UREA NITROGEN 18 MG/DL (7-18); BUN/CREATININE RATIO 17.1 (6.6-38.0); CALCIUM 8.4 MG/DL (8.5-10.1); CHLORIDE 105 MMOL/L (99-107); CREATININE 1.05 MG/DL (0.40-0.90); GLUCOSE 121 MG/DL (70-104); MAGNESIUM 1.5 MG/DL (1.5-2.4); POTASSIUM 4.3 MMOL/L (3.5-5.1); SODIUM 138 MMOL/L (135-145); TOTAL CARBON DIOXIDE 25.6 MMOL/L (24-32); TOTAL PROTEIN 6.4 G/DL (6.4-8.2); eGFR 52 ML/MIN
--- NOTE | 2019-02-01 06:35 | NUR ---
Problems reprioritized. Patient report given, questions answered & plan of care reviewed with ART,RN.
[2019-02-01] MEDS: K and/or MAG REPLACEMENT MC SCH (07:54)
[2019-02-01] MEDS: pantoprazole 40mg Tablet.DR PO SCH (08:03)
[2019-02-01] MEDS: heparin, porcine 5000 units/ml vial SQ SCH ×2 (08:03→20:40)
[2019-02-01 10:26] VITALS: BP 135/81
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
[2019-02-01] MEDS: carbidoba-levodopa 25-100mg tablet PO SCH ×3 (12:00→20:42)
--- NOTE | 2019-02-01 12:30 | NUR ---
PATIENT REFUSED HER AFTERNOON MEDICATION STATES "I JUST STOPPED SHAKING, WHY WOULD I TAKE SOMETHING THAT MAKES ME SHAKE."
[2019-02-01] MEDS: duloxetine 30mg CAPSULE.DR PO SCH (14:08)
[2019-02-01 18:00] VITALS: BP 129/54
[2019-02-01] MEDS: QUEtiapine 25mg tablet PO SCH (20:30)
[2019-02-01] MEDS: pramipexole 0.25mg tablet PO SCH (20:43)
[2019-02-01 22:00] VITALS: BP 93/71
[2019-02-02] MEDS: dronabinol 2.5mg capsule PO PRN (02:48)
[2019-02-02 06:00] VITALS: BP 122/55
--- NOTE | 2019-02-02 06:25 | NUR ---
Patient in room ORTHO 4012. I have received report from Hoda IVERSON and had the opportunity to ask questions and assume patient care.
--- NOTE | 2019-02-02 06:40 | NUR ---
Problems reprioritized. Patient report given, questions answered & plan of care reviewed with mary jo mac.
[2019-02-02] MEDS: K and/or MAG REPLACEMENT MC SCH (08:00)
[2019-02-02] MEDS: pantoprazole 40mg Tablet.DR PO SCH (08:45)
[2019-02-02] MEDS: pramipexole 0.25mg tablet PO SCH ×3 (08:45→20:41)
[2019-02-02] MEDS: heparin, porcine 5000 units/ml vial SQ SCH ×2 (08:45→20:41)
[2019-02-02] MEDS: duloxetine 30mg CAPSULE.DR PO SCH (08:45)
[2019-02-02 10:00] VITALS: BP 94/51
[2019-02-02] MEDS: carbidoba-levodopa 25-100mg tablet PO SCH ×3 (12:39→20:41)
[2019-02-02] MEDS: traMADol 50MG tablet PO PRN ×2 (13:46→21:57)
--- NOTE | 2019-02-02 16:46 | NUR ---
PAGER ID: [phone] MESSAGE: Shelly Weller, Ms. Sarmiento in [id number] has complaints of pain/headache, Ultram given at 13:46. Please advise Amee #[phone]
[2019-02-02] MEDS ORDERED: diazepam 2mg tablet PO PRN (17:05)
[2019-02-02 17:30] VITALS: BP 115/79
--- NOTE | 2019-02-02 18:42 | NUR ---
Problems reprioritized. Patient report given, questions answered & plan of care reviewed with Vonda IVERSON from surgical.
--- NOTE | 2019-02-02 18:44 | NUR ---
Received report from Amee IVERSON pt is resting on RA in no apparent distress, call light and items of freq use within reach
[2019-02-02] MEDS: QUEtiapine 25mg tablet PO SCH (20:30)
[2019-02-02 21:00] VITALS: BP 117/55
[2019-02-03 06:00] VITALS: BP 120/82
--- NOTE | 2019-02-03 06:20 | NUR ---
Patient in room ORTHO 4012. I have received report from Vonda IVERSON and had the opportunity to ask questions and assume patient care.
--- NOTE | 2019-02-03 06:22 | NUR ---
Problems reprioritized. Patient report given, questions answered & plan of care reviewed with Jojo IVERSON.
[2019-02-03] MEDS: K and/or MAG REPLACEMENT MC SCH (08:00)
[2019-02-03] MEDS: duloxetine 30mg CAPSULE.DR PO SCH (09:20)
[2019-02-03] MEDS: heparin, porcine 5000 units/ml vial SQ SCH (09:21)
[2019-02-03] MEDS: pantoprazole 40mg Tablet.DR PO SCH (09:21)
[2019-02-03] MEDS: pramipexole 0.25mg tablet PO SCH ×3 (09:21→21:11)
[2019-02-03 10:00] VITALS: BP 97/33
[2019-02-03] MEDS: carbidoba-levodopa 25-100mg tablet PO SCH ×3 (12:56→21:11)
--- NOTE | 2019-02-03 13:49 | NUR ---
PAGER ID: [phone] MESSAGE: Shelly Weller, Ms. Sarmiento in [id number], pulled her IV out. can we leave it out with an order? Please advise thank you Amee
[2019-02-03 17:00] VITALS: BP 108/57
--- NOTE | 2019-02-03 18:15 | NUR ---
Patient in room ORTHO 4012. I have received report from Amee IVERSON and had the opportunity to ask questions and assume patient care. Addendum: 02/04/19 at 0515 by Ellen Brewer RN Amended: Links added.
--- NOTE | 2019-02-03 18:26 | NUR ---
Problems reprioritized. Patient report given, questions answered & plan of care reviewed with Ellen IVERSON.
[2019-02-03] MEDS: QUEtiapine 25mg tablet PO SCH (19:22)
[2019-02-03] MEDS: traMADol 50MG tablet PO PRN (19:32)
[2019-02-03 21:00] VITALS: BP 131/54
[2019-02-03] MEDS: mag hydrox/Alum hydrox/simeth 30ml oral suspension PO PRN (22:32)
[2019-02-04 06:00] VITALS: BP 128/60
--- NOTE | 2019-02-04 06:27 | NUR ---
Problems reprioritized. Patient report given, questions answered & plan of care reviewed with Amee Kimble. Addendum: 02/04/19 at 0627 by Ellen Brewer RN Amended: Links added.
--- NOTE | 2019-02-04 06:30 | NUR ---
Patient in room ORTHO 4012. I have received report from Ellen IVERSON and had the opportunity to ask questions and assume patient care.
[2019-02-04] MEDS: K and/or MAG REPLACEMENT MC SCH (08:00)
[2019-02-04] MEDS: pramipexole 0.25mg tablet PO SCH ×3 (08:30→21:34)
[2019-02-04] MEDS: pantoprazole 40mg Tablet.DR PO SCH (08:30)
[2019-02-04] MEDS: duloxetine 30mg CAPSULE.DR PO SCH (08:30)
[2019-02-04 10:00] VITALS: BP 126/59
[2019-02-04] MEDS: carbidoba-levodopa 25-100mg tablet PO SCH ×3 (12:19→20:10)
[2019-02-04] MEDS: traMADol 50MG tablet PO PRN (12:22)
[2019-02-04 18:00] VITALS: BP 134/54
--- NOTE | 2019-02-04 18:33 | NUR ---
Problems reprioritized. Patient report given, questions answered & plan of care reviewed with Gracie IVERSON.
--- NOTE | 2019-02-04 18:38 | NUR ---
Patient in room ORTHO 4012. I have received report from ZAYRA Lubin and had the opportunity to ask questions and assume patient care. Addendum: 02/04/19 at 1838 by Vanessa Horowitz RN Amended: Links added.
[2019-02-04] MEDS: QUEtiapine 25mg tablet PO SCH (20:10)
[2019-02-04 22:00] VITALS: BP 111/52
[2019-02-05 06:00] VITALS: BP 110/47
--- NOTE | 2019-02-05 06:42 | NUR ---
Problems reprioritized. Patient report given, questions answered & plan of care reviewed with ZAYRA Mirza..
[2019-02-05] MEDS: K and/or MAG REPLACEMENT MC SCH ×3 (08:00→17:06)
[2019-02-05] MEDS: pantoprazole 40mg Tablet.DR PO SCH (08:30)
[2019-02-05] MEDS: pramipexole 0.25mg tablet PO SCH ×3 (09:14→20:28)
[2019-02-05] MEDS: duloxetine 30mg CAPSULE.DR PO SCH (09:14)
[2019-02-05 10:00] VITALS: BP 107/53
[2019-02-05] MEDS: carbidoba-levodopa 25-100mg tablet PO SCH ×3 (12:00→20:28)
--- NOTE | 2019-02-05 16:44 | NUR ---
Pt lying in bed all day. Refusing PT therapies, po meds at 1200 & 1500, and breakfast. Pt states "I just don't feel like doing anything today." Spent approximately one hour attempting to get pt to take 0800 medications ordered by MD. Pt states "we are trying to give her different medications to make her sick." Pt delusional most of the time. Makes inappropriate comments and denies pain. Will continue to monitor affect and medication administration.
[2019-02-05 18:00] VITALS: BP 118/41
--- NOTE | 2019-02-05 18:44 | NUR ---
Problems reprioritized. Patient report given, questions answered & plan of care reviewed with Annabel RN.
[2019-02-05] MEDS: traMADol 50MG tablet PO PRN (20:27)
[2019-02-05] MEDS: QUEtiapine 25mg tablet PO SCH (20:28)
[2019-02-05 22:00] VITALS: BP 92/47
[2019-02-06 06:00] VITALS: BP 110/47
[2019-02-06] MEDS: pantoprazole 40mg Tablet.DR PO SCH (08:32)
[2019-02-06] MEDS: pramipexole 0.25mg tablet PO SCH ×2 (08:33→13:08)
[2019-02-06] MEDS: duloxetine 30mg CAPSULE.DR PO SCH (08:33)
[2019-02-06 10:00] VITALS: BP 92/35
[2019-02-06] MEDS: carbidoba-levodopa 25-100mg tablet PO SCH ×3 (13:08→20:57)
[2019-02-06 14:00] VITALS: BP_SYST 120; BP_SYST 135; BP_SYST 70; BP_DIAS 38; BP_DIAS 39; BP_DIAS 44
--- NOTE | 2019-02-06 16:50 | NUR ---
reassessment: Pt seen by KELLEE regarding low PO 25% meals/refusing past 4 days down from 100% previous. Per pt reports r/t different anti-reflux medication here than she receives at home; RN is aware home med is not on formulary. Pt was agreeable to angeli lai w/ cranberry juice TIDWM per pt request. Pt requests B12, vitamin D, and Zinc supplementation; KELLEE [email or web address] MD regarding MVI/mineral per approval. [facility] 02/06 pt does report not in full control of GI at this time since needs assistance to make it to bathroom. Will continue to monitor. Rec: 1. continue heart healthy diet per MD 2. MVI/mineral per MD approval 3. angeli lai and cranberry juice TID for GI issues per pt request 4. weekly wts Addendum: 02/06/19 at [address] Amended: Links added.
[2019-02-06 18:00] VITALS: BP 120/44
--- NOTE | 2019-02-06 18:24 | NUR ---
Patient in room ORTHO 4012. I have received report from Yuki IVERSON and had the opportunity to ask questions and assume patient care.
[2019-02-06] MEDS: QUEtiapine 25mg tablet PO SCH (20:30)
[2019-02-06] MEDS: pramipexole 1mg tablet PO SCH (21:00)
[2019-02-06 22:00] VITALS: BP_SYST 122; BP_SYST 79; BP_DIAS 54; BP_DIAS 55
[2019-02-07] VITALS (8 sets, daily range): BP systolic 70–153; BP diastolic 28–84
[2019-02-07] MEDS: traMADol 50MG tablet PO PRN ×2 (05:36→21:18)
--- NOTE | 2019-02-07 06:20 | NUR ---
Problems reprioritized. Patient report given, questions answered & plan of care reviewed with Yuki IVERSON.
[2019-02-07] MEDS: K and/or MAG REPLACEMENT MC SCH (08:00)
[2019-02-07] MEDS: duloxetine 30mg CAPSULE.DR PO SCH (09:11)
[2019-02-07] MEDS: pantoprazole 40mg Tablet.DR PO SCH (09:11)
[2019-02-07] MEDS: pramipexole 1mg tablet PO SCH ×3 (09:12→21:15)
[2019-02-07] MEDS ORDERED: normal saline 1000ml 1,000 ML IVB ONE (11:10)
[2019-02-07] MEDS: carbidoba-levodopa 25-100mg tablet PO SCH ×3 (12:30→21:15)
--- NOTE | 2019-02-07 18:17 | NUR ---
Problems reprioritized. Patient report given, questions answered & plan of care reviewed with ZAYRA Donovan.
--- NOTE | 2019-02-07 18:17 | NUR ---
Patient in room ORTHO 4012. I have received report from Yuki IVERSON and had the opportunity to ask questions and assume patient care.
[2019-02-07] MEDS: QUEtiapine 25mg tablet PO SCH (21:15)
[2019-02-07] MEDS: clonazePAM 0.5mg tablet PO SCH (21:15)
[2019-02-08 06:00] VITALS: BP 116/49
--- NOTE | 2019-02-08 06:15 | NUR ---
Patient in room ORTHO 4012. I have received report from Venus IVERSON and had the opportunity to ask questions and assume patient care.
--- NOTE | 2019-02-08 06:25 | NUR ---
Problems reprioritized. Patient report given, questions answered & plan of care reviewed with Amee IVERSON.
[2019-02-08] MEDS: K and/or MAG REPLACEMENT MC SCH (08:00)
[2019-02-08] MEDS: clonazePAM 0.5mg tablet PO SCH ×2 (08:05→20:22)
[2019-02-08] MEDS: pramipexole 1mg tablet PO SCH ×3 (08:05→20:22)
[2019-02-08] MEDS: pantoprazole 40mg Tablet.DR PO SCH (08:05)
[2019-02-08] MEDS: duloxetine 30mg CAPSULE.DR PO SCH (08:05)
[2019-02-08] MEDS: traMADol 50MG tablet PO PRN ×2 (08:11→20:31)
[2019-02-08 08:30] VITALS: BP_SYST 127; BP_SYST 57; BP_SYST 86; BP_DIAS 34; BP_DIAS 40; BP_DIAS 48
[2019-02-08 10:00] VITALS: BP 113/66
[2019-02-08] MEDS: carbidoba-levodopa 25-100mg tablet PO SCH ×3 (12:21→20:22)
[2019-02-08 17:45] VITALS: BP_SYST 105; BP_SYST 77; BP_SYST 94; BP_DIAS 27; BP_DIAS 38; BP_DIAS 46
[2019-02-08 18:00] VITALS: BP 105/38
--- NOTE | 2019-02-08 18:20 | NUR ---
Problems reprioritized. Patient report given, questions answered & plan of care reviewed with Radha Johns
[2019-02-08] MEDS: QUEtiapine 25mg tablet PO SCH (20:22)
[2019-02-08 22:00] VITALS: BP_SYST 105; BP_SYST 58; BP_SYST 78; BP_DIAS 32; BP_DIAS 44
[2019-02-09] VITALS (10 sets, daily range): BP systolic 80–162; BP diastolic 29–128
--- NOTE | 2019-02-09 06:15 | NUR ---
report received from ZAYRA Garcia
--- NOTE | 2019-02-09 06:38 | NUR ---
Problems reprioritized. Patient report given, questions answered & plan of care reviewed with Shobha IVERSON.
[2019-02-09] MEDS: K and/or MAG REPLACEMENT MC SCH (08:00)
[2019-02-09] MEDS: pramipexole 1mg tablet PO SCH ×3 (08:55→20:30)
[2019-02-09] MEDS: clonazePAM 0.5mg tablet PO SCH ×2 (08:55→20:29)
[2019-02-09] MEDS: duloxetine 30mg CAPSULE.DR PO SCH (08:56)
[2019-02-09] MEDS: traMADol 50MG tablet PO PRN ×2 (08:56→16:42)
[2019-02-09] MEDS: midodrine 5mg tablet PO SCH ×4 (08:57→16:39)
[2019-02-09] MEDS: pantoprazole 40mg Tablet.DR PO SCH (08:57)
--- NOTE | 2019-02-09 09:30 | NUR ---
relayed BP results/charted to Dr Ely. confirmation to administer x1 Midodrine 5mg tab
[2019-02-09] MEDS: carbidoba-levodopa 25-100mg tablet PO SCH ×3 (12:52→20:29)
--- NOTE | 2019-02-09 14:26 | NUR ---
reassessment: Pt PO 25-50% avg meals PO increased to 100% lunch today per RN reporting good appetite. Marinol has been d/c but pt meeting needs if 50% PO continues. If returns to persistent 25-50% like previous would benefit from appetite stimulant per MD approval; KELLEE d/w RN. Per RN pt low PO mainly when in pain. LBM 02/09. Will continue to monitor. Rec: 1. advance to regular diet per MD 2. MVI/mineral per MD approval 3. angeli lai and cranberry juice TID for GI issues per pt request 4. weekly wts Addendum: 02/09/19 at [address] Amended: Links added.
--- NOTE | 2019-02-09 18:15 | NUR ---
Report given to ZAYRA Tyler
--- NOTE | 2019-02-09 19:00 | NUR ---
Patient in room ORTHO 4012. I have received report from Shobha IVERSON and had the opportunity to ask questions and assume patient care.
[2019-02-09] MEDS: QUEtiapine 25mg tablet PO SCH (20:29)
[2019-02-10] VITALS (10 sets, daily range): BP systolic 39–140; BP diastolic 15–80
[2019-02-10] MEDS: duloxetine 30mg CAPSULE.DR PO SCH (07:44)
[2019-02-10] MEDS: pantoprazole 40mg Tablet.DR PO SCH (07:44)
[2019-02-10] MEDS: clonazePAM 0.5mg tablet PO SCH ×2 (07:45→19:59)
[2019-02-10] MEDS: pramipexole 1mg tablet PO SCH ×3 (07:45→19:59)
[2019-02-10] MEDS: midodrine 5mg tablet PO SCH (07:45)
[2019-02-10] MEDS: K and/or MAG REPLACEMENT MC SCH (08:00)
[2019-02-10] MEDS: carbidoba-levodopa 25-100mg tablet PO SCH ×3 (12:44→19:58)
[2019-02-10] MEDS: traMADol 50MG tablet PO PRN (12:44)
[2019-02-10] MEDS: midodrine tablet 2.5 MG TABLET PO SCH ×2 (13:07→16:38)
[2019-02-10] MEDS: QUEtiapine 25mg tablet PO SCH (19:59)
--- NOTE | 2019-02-11 04:30 | NUR ---
Pt to bedside commode. She got up by herself not using the call light and was found on her right knee leaning on her bed. was notified and if right knee hurts may do an xray. Addendum: 02/11/19 at 0534 by Ellen Brewer RN Amended: Links added.
--- NOTE | 2019-02-11 05:10 | NUR ---
I informed Nursing supervisor print line that patient was found half on the floor and half on the bed after getting herself off the bsc. Pt c/o of right knee hurting somewhat and it is slightly red from hitting floor or pressure from the floor.
[2019-02-11 06:00] VITALS: BP 94/46
--- NOTE | 2019-02-11 06:25 | NUR ---
Patient in room ORTHO 4012. I have received report from Ellen IVERSON and had the opportunity to ask questions and assume patient care.
[2019-02-11] MEDS: K and/or MAG REPLACEMENT MC SCH (07:24)
[2019-02-11] MEDS: midodrine tablet 2.5 MG TABLET PO SCH ×3 (07:42→16:43)
[2019-02-11] MEDS: pramipexole 1mg tablet PO SCH ×3 (07:42→20:24)
[2019-02-11] MEDS: duloxetine 30mg CAPSULE.DR PO SCH (07:42)
[2019-02-11] MEDS: clonazePAM 0.5mg tablet PO SCH ×2 (07:42→20:23)
[2019-02-11] MEDS: pantoprazole 40mg Tablet.DR PO SCH (07:42)
[2019-02-11 12:19] VITALS: BP_SYST 109; BP_SYST 123; BP_SYST 58; BP_DIAS 28; BP_DIAS 36; BP_DIAS 58
--- NOTE | 2019-02-11 12:25 | NUR ---
PAGER ID: [phone] MESSAGE: hSelly Ely, yanni - Ms. Sarmiento in rm [id number] orthostatic vitals were positive. sup - 123/58, sit 109/36, stand 58/28 Thank you Amee #[phone]
[2019-02-11] MEDS: carbidoba-levodopa 25-100mg tablet PO SCH ×3 (12:59→20:24)
[2019-02-11 16:51] VITALS: BP 124/38
--- NOTE | 2019-02-11 16:59 | NUR ---
PAGER ID: [phone] MESSAGE: Shelly Ely, the IV for Ms. Sarmiento in came out, shall we place another or leave it out? Please advise Thank you Amee [phone]
--- NOTE | 2019-02-11 17:09 | NUR ---
Per , okay to leave IV out
[2019-02-11 18:00] VITALS: BP 124/36
--- NOTE | 2019-02-11 18:14 | NUR ---
Patient in room ORTHO 4012. I have received report from Amee IVERSON and had the opportunity to ask questions and assume patient care.
--- NOTE | 2019-02-11 18:18 | NUR ---
Problems reprioritized. Patient report given, questions answered & plan of care reviewed with Venus IVERSON.
[2019-02-11] MEDS: QUEtiapine 25mg tablet PO SCH (20:24)
[2019-02-11 22:00] VITALS: BP_SYST 113; BP_SYST 132; BP_DIAS 52; BP_DIAS 55
[2019-02-11] MEDS: traMADol 50MG tablet PO PRN (22:32)
[2019-02-12 06:00] VITALS: BP 96/46
--- NOTE | 2019-02-12 06:15 | NUR ---
Patient in room ORTHO 4012. I have received report from and had the opportunity to ask questions and assume patient care ZAYRA Donovan
[2019-02-12 08:00] VITALS: BP 100/33
[2019-02-12] MEDS: K and/or MAG REPLACEMENT MC SCH (08:00)
[2019-02-12] MEDS: pantoprazole 40mg Tablet.DR PO SCH (09:08)
[2019-02-12] MEDS: clonazePAM 0.5mg tablet PO SCH ×2 (09:08→20:11)
[2019-02-12] MEDS: duloxetine 30mg CAPSULE.DR PO SCH (09:09)
[2019-02-12] MEDS: pramipexole 1mg tablet PO SCH ×3 (09:09→20:11)
[2019-02-12] MEDS: midodrine 5mg tablet PO SCH ×3 (09:10→17:44)
[2019-02-12 10:00] VITALS: BP 100/33
[2019-02-12] MEDS: carbidoba-levodopa 25-100mg tablet PO SCH ×4 (12:00→20:11)
--- NOTE | 2019-02-12 12:00 | NUR ---
pt refused 1200 c-levadopa states makes her shake worse. pt agree to take the next dose thinking she may be getting too much.
[2019-02-12] MEDS: traMADol 50MG tablet PO PRN (14:51)
[2019-02-12 17:00] VITALS: BP 135/55
--- NOTE | 2019-02-12 18:30 | NUR ---
Patient in room ORTHO 4012. I have received report from Shobha IVERSON and had the opportunity to ask questions and assume patient care.
--- NOTE | 2019-02-12 18:30 | NUR ---
Problems reprioritized. Patient report given, questions answered & plan of care reviewed with ZAYRA Donovan.
[2019-02-12] MEDS ORDERED: ibuprofen 200mg tablet PO PRN (18:40)
[2019-02-12 19:44] LABS: BASOPHILS # (AUTO) 0.1 X10'3 (0-0.2); BASOPHILS % (AUTO) 0.9 % (0-1); EOSINOPHILS # (AUTO) 0.5 X10'3 (0-0.9); EOSINOPHILS % (AUTO) 4.7 % (0-6); HEMATOCRIT 31.5 % (35.0-45.0); HEMOGLOBIN 10.5 g/dl (12.0-16.0); LYMPHOCYTES # (AUTO) 1.8 X10'3 (1.1-4.8); LYMPHOCYTES % (AUTO) 16.1 % (21-51); MEAN CORPUSCULAR HEMOGLOBIN 30.1 PG (27.0-31.0); MEAN CORPUSCULAR HGB CONC 33.4 g/dL (33.0-36.5); MEAN PLATELET VOLUME 6.7 FL (7.4-10.4); MONOCYTES # (AUTO) 0.8 X10'3 (0-0.9); MONOCYTES % (AUTO) 7.4 % (2-12); NEUTROPHILS # (AUTO) 7.9 X10'3 (1.8-7.7); NEUTROPHILS % (AUTO) 70.9 % (42-75); PLATELET COUNT 360 X10'3 (140-440); RED CELL DISTRIBUTION WIDTH 15.7 % (11.5-14.5); WHITE BLOOD COUNT 11.1 X10'3 (4.5-11.0)
[2019-02-12] MEDS: QUEtiapine 25mg tablet PO SCH (20:11)
[2019-02-12 21:17] LABS: CLARITY,URINE CLOUDY (Clear); COLOR,URINE YELLOW (Yellow); GLUCOSE, URINE NEGATIVE (Neg); KETONES,URINE NEGATIVE (Neg); LEUKOCYTE ESTERASE ,URINE SMALL (Neg); NITRITES, URINE POSITIVE (Neg); OCCULT BLOOD,URINE NEGATIVE (Neg); PROTEIN,URINE NEGATIVE (Neg)
[2019-02-12 21:24] LABS: UA COLLECTION TYPE CLN CATCH MIDSTREAM
[2019-02-12 21:39] LABS: BACTERIA,URINE 4+ /HPF (Neg); MUCUS STRANDS MODERATE /LPF (Neg); RBC,URINE 0-2 /HPF (0-2); SQUAMOUS EPITHELIAL CELL,UR MODERATE /LPF (FEW); WBC,URINE 50-100 /HPF (0-4)
[2019-02-12 22:00] VITALS: BP 117/48
[2019-02-12 23:37] VITALS: BP_SYST 102; BP_SYST 79; BP_DIAS 38; BP_DIAS 48
[2019-02-13] VITALS (9 sets, daily range): BP systolic 94–142; BP diastolic 45–60
--- NOTE | 2019-02-13 06:18 | NUR ---
Problems reprioritized. Patient report given, questions answered & plan of care reviewed with Shobha IVERSON.
[2019-02-13] MEDS: K and/or MAG REPLACEMENT MC SCH (08:00)
[2019-02-13] MEDS: traMADol 50MG tablet PO PRN (08:57)
[2019-02-13] MEDS: pantoprazole 40mg Tablet.DR PO SCH (08:57)
[2019-02-13] MEDS: duloxetine 30mg CAPSULE.DR PO SCH (08:58)
[2019-02-13] MEDS: pramipexole 1mg tablet PO SCH ×3 (08:58→21:17)
[2019-02-13] MEDS: midodrine 5mg tablet PO SCH ×3 (08:58→15:51)
[2019-02-13] MEDS: clonazePAM 0.5mg tablet PO SCH ×2 (08:58→21:17)
[2019-02-13] MEDS: carbidoba-levodopa 25-100mg tablet PO SCH ×3 (13:10→21:17)
[2019-02-13] MEDS: sulfamethoxazole/trimethoprim DS (800/160mg) tablet PO SCH ×2 (13:11→21:17)
[2019-02-13] MEDS: QUEtiapine 25mg tablet PO SCH (21:17)
--- NOTE | 2019-02-14 06:05 | NUR ---
Patient in room ORTHO 4012. I have received report from Julianna IVERSON and had the opportunity to ask questions and assume patient care.
--- NOTE | 2019-02-14 06:58 | NUR ---
Problems reprioritized. Patient report given, questions answered & plan of care reviewed with ZAYRA Lackey.
[2019-02-14 07:22] VITALS: BP 116/31
[2019-02-14] MEDS: K and/or MAG REPLACEMENT MC SCH (08:00)
[2019-02-14] MEDS: sulfamethoxazole/trimethoprim DS (800/160mg) tablet PO SCH ×2 (08:09→20:13)
[2019-02-14] MEDS: duloxetine 30mg CAPSULE.DR PO SCH (08:09)
[2019-02-14] MEDS: pantoprazole 40mg Tablet.DR PO SCH (08:10)
[2019-02-14] MEDS: midodrine 5mg tablet PO SCH ×3 (08:10→15:09)
[2019-02-14] MEDS: pramipexole 1mg tablet PO SCH ×3 (08:10→20:12)
[2019-02-14] MEDS: clonazePAM 0.5mg tablet PO SCH ×2 (08:10→20:14)
[2019-02-14 08:54] VITALS: BP 115/65
[2019-02-14 10:36] VITALS: BP 102/46
[2019-02-14] MEDS: carbidoba-levodopa 25-100mg tablet PO SCH ×3 (11:52→20:14)
--- NOTE | 2019-02-14 15:07 | NUR ---
reassessment: Pt PO 25-50% avg meals but also had sandwich prior to lunch today per RN endorsing better appetite. LBM 02/13. Pt does not like ONS options available so unable to send. Cottage cheese w/ fruit at breakfasts added for additional protein needs. Will conitnue to monitor. Rec: 1. advance to regular diet per MD 2. MVI/mineral per MD approval 3. angeli lai and cranberry juice TID for GI issues per pt request 4. weekly wts Addendum: 02/14/19 at [address] Amended: Links added. Addendum: 02/14/19 at [address] reassessment: Pt PO 25-50% avg meals but also had sandwich prior to lunch today per RN endorsing better appetite. LBM 02/13. Pt does not like ONS options available so unable to send. Ensure pudding at breakfasts added for additional protein needs. Will continue to monitor. Rec: 1. advance to regular diet per MD 2. MVI/mineral per MD approval 3. angeli lai and cranberry juice TID for GI issues per pt request 4. weekly wts
[2019-02-14 17:00] VITALS: BP 141/64
[2019-02-14] MEDS: lactobacillus rhamnosus 10,000 MMU CELLS/CAPSULE PO SCH (20:13)
[2019-02-14] MEDS: QUEtiapine 25mg tablet PO SCH (20:14)
[2019-02-14 22:00] VITALS: BP 110/58
[2019-02-14 23:52] VITALS: BP_SYST 104; BP_SYST 75; BP_DIAS 34; BP_DIAS 38
--- NOTE | 2019-02-15 06:16 | NUR ---
Problems reprioritized. Patient report given, questions answered & plan of care reviewed with Julianna IVERSON.
[2019-02-15 06:49] VITALS: BP 136/51
[2019-02-15] MEDS: lactobacillus rhamnosus 10,000 MMU CELLS/CAPSULE PO SCH ×2 (07:50→20:58)
[2019-02-15] MEDS: clonazePAM 0.5mg tablet PO SCH ×2 (07:50→20:56)
[2019-02-15] MEDS: pantoprazole 40mg Tablet.DR PO SCH (07:50)
[2019-02-15] MEDS: duloxetine 30mg CAPSULE.DR PO SCH (07:50)
[2019-02-15] MEDS: sulfamethoxazole/trimethoprim DS (800/160mg) tablet PO SCH ×2 (07:50→20:57)
[2019-02-15] MEDS: K and/or MAG REPLACEMENT MC SCH (07:51)
[2019-02-15] MEDS: pramipexole 1mg tablet PO SCH ×3 (07:51→20:57)
[2019-02-15] MEDS: midodrine 5mg tablet PO SCH ×3 (07:51→16:06)
[2019-02-15 08:00] VITALS: BP_SYST 105; BP_SYST 120; BP_DIAS 32; BP_DIAS 45
[2019-02-15 10:21] VITALS: BP 120/45
[2019-02-15] MEDS: carbidoba-levodopa 25-100mg tablet PO SCH ×3 (12:28→20:58)
[2019-02-15] MEDS: midodrine tablet 2.5 MG TABLET PO SCH ×2 (14:21→16:06)
[2019-02-15 18:00] VITALS: BP 126/48
[2019-02-15] MEDS: QUEtiapine 25mg tablet PO SCH (20:57)
[2019-02-15 22:00] VITALS: BP_SYST 119; BP_SYST 150; BP_SYST 94; BP_DIAS 38; BP_DIAS 62; BP_DIAS 66
--- NOTE | 2019-02-16 02:15 | NUR ---
Around 015, activity aide found patient laying on floor flat on her back, with the bed on her left and the bedside commode at her feet. Bedside commode was found empty. A nurse also said she heard a thump from the room next door, and went to the room. Pt stated she hit her head when asked first nurse on scene. Charge nurse did not see any redness or swelling on her head. Pt vital signs taken (97.6 F, 58 HR, 96% O2 on RA, RR 18, 143/49, 04/27 pain) and Dr. Ely alerted at 0215. No new orders at this time. When I asked pt how bad the pain was, and she stated it was "not bad' and that she didn't need any pain medicine for it. Will continue to monitor. Addendum: 02/16/19 at 0547 by Venus Rojas RN I asked pt what happened, she said she used the bedside commode and wanted to get back to bed, and then she fell. I asked pt why she did not use the call light and she said she thought she could do it herself. Nurses and nursing program coordinator did not find the bedside commode to be used upon finding the pt, and helped her to the commode after the incident. Pt also has been switched to a bed with a bed alarm as of 219.
[2019-02-16 06:00] VITALS: BP 124/42
--- NOTE | 2019-02-16 06:25 | NUR ---
Patient report given, questions answered & plan of care reviewed with Karishma IVERSON.
--- NOTE | 2019-02-16 06:40 | NUR ---
Patient in room ORTHO 4012. I have received report from ZAYRA Donovan and had the opportunity to ask questions and assume patient care.
[2019-02-16] MEDS: clonazePAM 0.5mg tablet PO SCH ×2 (07:34→22:07)
[2019-02-16] MEDS: pantoprazole 40mg Tablet.DR PO SCH (07:34)
[2019-02-16] MEDS: sulfamethoxazole/trimethoprim DS (800/160mg) tablet PO SCH ×2 (07:34→22:07)
[2019-02-16] MEDS: lactobacillus rhamnosus 10,000 MMU CELLS/CAPSULE PO SCH ×2 (07:34→22:04)
[2019-02-16] MEDS: duloxetine 30mg CAPSULE.DR PO SCH (07:35)
[2019-02-16] MEDS: pramipexole 1mg tablet PO SCH ×3 (07:35→22:05)
[2019-02-16] MEDS: traMADol 50MG tablet PO PRN (07:35)
[2019-02-16] MEDS: midodrine 5mg tablet PO SCH ×3 (07:36→16:01)
[2019-02-16] MEDS: midodrine tablet 2.5 MG TABLET PO SCH ×3 (07:39→16:01)
[2019-02-16] MEDS: K and/or MAG REPLACEMENT MC SCH (08:00)
[2019-02-16 09:00] VITALS: BP_SYST 110; BP_SYST 118; BP_DIAS 60; BP_DIAS 65; BP_DIAS 68
[2019-02-16 10:00] VITALS: BP 110/68
[2019-02-16] MEDS: carbidoba-levodopa 25-100mg tablet PO SCH ×3 (12:49→22:06)
--- NOTE | 2019-02-16 17:32 | NUR ---
Pt up with PT today. PT stated pt appears to be freezing up when she goes to move. She used to shuffle and move easier and now she is freezing more. Possibly d/t progression of Parkinson's. Safety has been maintained throughout the day. Remains occasionally confused but a/ox3 for them most part. Takes PO pills better in applesauce. Awaiting placement for d/c.
[2019-02-16 18:00] VITALS: BP 148/47
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
[2019-02-16] MEDS: QUEtiapine 25mg tablet PO SCH (20:30)
[2019-02-16 22:00] VITALS: BP 131/48
[2019-02-17 06:00] VITALS: BP_SYST 108; BP_SYST 85; BP_DIAS 44; BP_DIAS 57
--- NOTE | 2019-02-17 06:32 | NUR ---
Problems reprioritized. Patient report given, questions answered & plan of care reviewed with Hina IVERSON.
[2019-02-17 07:09] VITALS: BP_SYST 108; BP_SYST 85; BP_DIAS 44; BP_DIAS 57
[2019-02-17] MEDS: midodrine 5mg tablet PO SCH ×3 (08:00→17:42)
[2019-02-17] MEDS: pramipexole 1mg tablet PO SCH ×3 (08:00→22:06)
[2019-02-17] MEDS: K and/or MAG REPLACEMENT MC SCH (08:00)
[2019-02-17] MEDS: pantoprazole 40mg Tablet.DR PO SCH (08:30)
[2019-02-17] MEDS: lactobacillus rhamnosus 10,000 MMU CELLS/CAPSULE PO SCH ×2 (09:46→19:24)
[2019-02-17] MEDS: clonazePAM 0.5mg tablet PO SCH ×2 (09:48→19:24)
[2019-02-17] MEDS: duloxetine 30mg CAPSULE.DR PO SCH (09:48)
[2019-02-17] MEDS: midodrine tablet 2.5 MG TABLET PO SCH ×3 (09:49→17:42)
[2019-02-17] MEDS: sulfamethoxazole/trimethoprim DS (800/160mg) tablet PO SCH ×2 (09:51→19:24)
[2019-02-17 10:00] VITALS: BP 107/67
[2019-02-17] MEDS: carbidoba-levodopa 25-100mg tablet PO SCH ×3 (13:09→22:05)
[2019-02-17 18:00] VITALS: BP 161/57
--- NOTE | 2019-02-17 18:15 | NUR ---
Patient in room ORTHO 4012. I have received report from Hina IVERSON and had the opportunity to ask questions and assume patient care. Checked on patient, she is sitting at bedside, somewhat confused. Re-oriented patient to situation. Bed alarm and tab alarm in place, will continue to monitor.
[2019-02-17 20:00] VITALS: BP_SYST 120; BP_SYST 66; BP_SYST 94; BP_DIAS 32; BP_DIAS 34; BP_DIAS 51
[2019-02-17 22:00] VITALS: BP 134/53
[2019-02-17] MEDS: QUEtiapine 25mg tablet PO SCH (22:06)
--- NOTE | 2019-02-18 06:40 | NUR ---
Problems reprioritized. Patient report given, questions answered & plan of care reviewed with Hina IVERSON and Jorge L IVERSON.
[2019-02-18 07:10] VITALS: BP 120/51
[2019-02-18] MEDS: K and/or MAG REPLACEMENT MC SCH (08:00)
[2019-02-18] MEDS: pramipexole 1mg tablet PO SCH ×3 (09:26→20:11)
[2019-02-18] MEDS: lactobacillus rhamnosus 10,000 MMU CELLS/CAPSULE PO SCH ×2 (09:26→19:42)
[2019-02-18] MEDS: sulfamethoxazole/trimethoprim DS (800/160mg) tablet PO SCH ×2 (09:26→19:43)
[2019-02-18] MEDS: clonazePAM 0.5mg tablet PO SCH ×2 (09:26→19:43)
[2019-02-18] MEDS: pantoprazole 40mg Tablet.DR PO SCH (09:26)
[2019-02-18] MEDS: midodrine 5mg tablet PO SCH ×3 (09:27→16:08)
[2019-02-18] MEDS: duloxetine 30mg CAPSULE.DR PO SCH (09:27)
[2019-02-18] MEDS: midodrine tablet 2.5 MG TABLET PO SCH ×3 (09:27→16:08)
[2019-02-18] MEDS: mag hydrox/Alum hydrox/simeth 30ml oral suspension PO PRN (09:30)
[2019-02-18 10:00] VITALS: BP 133/60
[2019-02-18 10:30] VITALS: BP_SYST 133; BP_SYST 62; BP_SYST 98; BP_DIAS 31; BP_DIAS 46; BP_DIAS 60
[2019-02-18] MEDS: carbidoba-levodopa 25-100mg tablet PO SCH ×3 (12:00→19:42)
[2019-02-18 18:00] VITALS: BP 151/56
--- NOTE | 2019-02-18 18:32 | NUR ---
Problems reprioritized. Patient report given, questions answered & plan of care reviewed with Kim IVERSON.
--- NOTE | 2019-02-18 18:44 | NUR ---
Patient in room ORTHO 4012. I have received report from Wendy IVERSON and had the opportunity to ask questions and assume patient care.
[2019-02-18] MEDS: QUEtiapine 25mg tablet PO SCH (19:43)
[2019-02-18 20:00] VITALS: BP_SYST 126; BP_SYST 59; BP_SYST 82; BP_DIAS 40; BP_DIAS 43; BP_DIAS 49
[2019-02-18 22:00] VITALS: BP 126/43
[2019-02-19 06:00] VITALS: BP 86/30
--- NOTE | 2019-02-19 06:21 | NUR ---
Problems reprioritized. Patient report given, questions answered & plan of care reviewed with Olu IVERSON.
--- NOTE | 2019-02-19 07:08 | NUR ---
Patient in room ORTHO 4012. I have received report from ZAYRA Alvarez and had the opportunity to ask questions and assume patient care.
[2019-02-19 08:00] VITALS: BP_SYST 108; BP_SYST 155; BP_DIAS 56; BP_DIAS 63
[2019-02-19] MEDS: K and/or MAG REPLACEMENT MC SCH (08:00)
[2019-02-19] MEDS: clonazePAM 0.5mg tablet PO SCH ×2 (08:00→19:55)
[2019-02-19] MEDS: pantoprazole 40mg Tablet.DR PO SCH (08:05)
[2019-02-19] MEDS: duloxetine 30mg CAPSULE.DR PO SCH (08:05)
[2019-02-19] MEDS: lactobacillus rhamnosus 10,000 MMU CELLS/CAPSULE PO SCH ×2 (08:05→19:56)
[2019-02-19] MEDS: pramipexole 1mg tablet PO SCH ×3 (08:07→19:55)
[2019-02-19] MEDS: sulfamethoxazole/trimethoprim DS (800/160mg) tablet PO SCH ×2 (08:07→19:56)
[2019-02-19] MEDS: midodrine tablet 2.5 MG TABLET PO SCH ×3 (08:08→15:17)
[2019-02-19] MEDS: midodrine 5mg tablet PO SCH ×3 (08:08→15:18)
[2019-02-19] MEDS: carbidoba-levodopa 25-100mg tablet PO SCH ×3 (12:18→19:55)
[2019-02-19 18:00] VITALS: BP 125/47
[2019-02-19] MEDS ORDERED: lactose-reduced food (Ensure Enlive) - 237ml bottle PO SCH (18:00)
--- NOTE | 2019-02-19 18:20 | NUR ---
Orienteer documentation: I have reviewed and agree with all interventions, assessments performed and documented by Farheen IVEROSN.
[2019-02-19] MEDS: magnesium hydroxide 30ml (MOM) UD suspension PO PRN (19:55)
[2019-02-19] MEDS: QUEtiapine 25mg tablet PO SCH (19:56)
[2019-02-19 20:00] VITALS: BP_SYST 54; BP_SYST 80; BP_SYST 86; BP_DIAS 25; BP_DIAS 38; BP_DIAS 54
[2019-02-19 22:00] VITALS: BP 80/38
--- NOTE | 2019-02-20 06:23 | NUR ---
Problems reprioritized. Patient report given, questions answered & plan of care reviewed with mary jo Levine.
[2019-02-20 06:43] VITALS: BP 109/43
[2019-02-20] MEDS: duloxetine 30mg CAPSULE.DR PO SCH (07:27)
[2019-02-20] MEDS: pramipexole 1mg tablet PO SCH ×3 (07:27→19:52)
[2019-02-20] MEDS: lactobacillus rhamnosus 10,000 MMU CELLS/CAPSULE PO SCH ×2 (07:28→19:52)
[2019-02-20] MEDS: K and/or MAG REPLACEMENT MC SCH (07:28)
[2019-02-20] MEDS: clonazePAM 0.5mg tablet PO SCH ×2 (07:28→19:52)
[2019-02-20] MEDS: sulfamethoxazole/trimethoprim DS (800/160mg) tablet PO SCH (07:28)
[2019-02-20] MEDS: midodrine 5mg tablet PO SCH ×3 (07:28→16:37)
[2019-02-20] MEDS: midodrine tablet 2.5 MG TABLET PO SCH ×3 (07:28→16:37)
[2019-02-20] MEDS: pantoprazole 40mg Tablet.DR PO SCH (07:33)
[2019-02-20 08:00] VITALS: BP_SYST 104; BP_SYST 116; BP_SYST 123; BP_DIAS 55; BP_DIAS 61; BP_DIAS 63
[2019-02-20 10:08] VITALS: BP 116/55
[2019-02-20] MEDS: carbidoba-levodopa 25-100mg tablet PO SCH ×3 (11:26→19:51)
--- NOTE | 2019-02-20 14:02 | NUR ---
reassessment: Pt PO 50% avg meals fluctuating; refused meals yesterday. No significant BM documented since 02/09 received MoM 02/19 w/ no routine bowel care. [employer]ELLEE [employer] regarding routine bowel care per approval. IF truly constipation likely effecting PO as well. Will continue to monitor. Rec: 1. advance to regular diet per MD 2. MVI/mineral per MD approval 3. angeli lai and cranberry juice TID for GI issues per pt request 4. ensure puddings at breakfast 5. routine bowel care 6. weekly wts Addendum: 02/20/19 at [address] Amended: Links added.
[2019-02-20] MEDS: QUEtiapine 25mg tablet PO SCH (19:51)
[2019-02-20] MEDS: magnesium hydroxide 30ml (MOM) UD suspension PO PRN (19:51)
[2019-02-20 20:00] VITALS: BP_SYST 81; BP_SYST 96; BP_DIAS 44; BP_DIAS 53
[2019-02-20 22:00] VITALS: BP 96/53
[2019-02-21 06:00] VITALS: BP 112/54
--- NOTE | 2019-02-21 06:44 | NUR ---
Problems reprioritized. Patient report given, questions answered & plan of care reviewed with ZAYRA HAYS.
[2019-02-21] MEDS: K and/or MAG REPLACEMENT MC SCH (08:00)
[2019-02-21] MEDS: midodrine 5mg tablet PO SCH ×3 (08:15→17:49)
[2019-02-21] MEDS: midodrine tablet 2.5 MG TABLET PO SCH ×3 (08:15→17:49)
[2019-02-21] MEDS: clonazePAM 0.5mg tablet PO SCH ×2 (08:15→19:59)
[2019-02-21] MEDS: duloxetine 30mg CAPSULE.DR PO SCH (08:15)
[2019-02-21] MEDS: lactobacillus rhamnosus 10,000 MMU CELLS/CAPSULE PO SCH ×2 (08:15→19:59)
[2019-02-21] MEDS: pramipexole 1mg tablet PO SCH ×3 (08:15→20:01)
[2019-02-21] MEDS: pantoprazole 40mg Tablet.DR PO SCH (08:15)
[2019-02-21 10:00] VITALS: BP_SYST 118; BP_SYST 60; BP_SYST 76; BP_SYST 96; BP_DIAS 26; BP_DIAS 46; BP_DIAS 53; BP_DIAS 69
[2019-02-21] MEDS: diazepam 5mg tablet PO PRN (11:09)
[2019-02-21] MEDS: traMADol 50MG tablet PO PRN (14:15)
[2019-02-21] MEDS: carbidoba-levodopa 25-100mg tablet PO SCH ×3 (14:15→19:59)
[2019-02-21] MEDS: magnesium hydroxide 30ml (MOM) UD suspension PO PRN ×2 (17:48→17:57)
--- NOTE | 2019-02-21 17:57 | NUR ---
pt states that her stomach is upset, I offered MOM again, she said she would take it this time, I gave it to her but she would only drink half of it.
[2019-02-21 18:00] VITALS: BP 138/56
--- NOTE | 2019-02-21 18:52 | NUR ---
Patient in room ORTHO 4012. I have received report from mary jo Santamaria and had the opportunity to ask questions and assume patient care.
[2019-02-21] MEDS: QUEtiapine 25mg tablet PO SCH (19:59)
[2019-02-21 20:00] VITALS: BP_SYST 88; BP_SYST 89; BP_DIAS 42; BP_DIAS 47
[2019-02-21 22:00] VITALS: BP 89/42
[2019-02-22 06:00] VITALS: BP 89/51
--- NOTE | 2019-02-22 06:44 | NUR ---
Problems reprioritized. Patient report given, questions answered & plan of care reviewed with mary jo Santamaria.
[2019-02-22 08:00] VITALS: BP_SYST 101; BP_SYST 96; BP_SYST 97; BP_DIAS 54; BP_DIAS 68; BP_DIAS 78
[2019-02-22] MEDS: K and/or MAG REPLACEMENT MC SCH (08:00)
[2019-02-22] MEDS: pantoprazole 40mg Tablet.DR PO SCH (08:43)
[2019-02-22] MEDS: pramipexole 1mg tablet PO SCH ×3 (08:43→20:51)
[2019-02-22] MEDS: clonazePAM 0.5mg tablet PO SCH ×2 (08:43→20:41)
[2019-02-22] MEDS: duloxetine 30mg CAPSULE.DR PO SCH (08:43)
[2019-02-22] MEDS: midodrine tablet 2.5 MG TABLET PO SCH ×3 (08:43→16:51)
[2019-02-22] MEDS: midodrine 5mg tablet PO SCH ×3 (08:43→16:52)
[2019-02-22] MEDS: lactobacillus rhamnosus 10,000 MMU CELLS/CAPSULE PO SCH ×2 (08:44→20:00)
[2019-02-22 10:00] VITALS: BP 130/83
[2019-02-22] MEDS: diazepam 5mg tablet PO PRN (11:34)
[2019-02-22] MEDS: carbidoba-levodopa 25-100mg tablet PO SCH ×3 (13:36→20:46)
[2019-02-22 18:00] VITALS: BP 105/56
--- NOTE | 2019-02-22 18:29 | NUR ---
Patient in room ORTHO 4012. I have received report from Hina IVERSON and had the opportunity to ask questions and assume patient care.
[2019-02-22] MEDS: fludrocortisone acetate 0.1mg tablet PO SCH (20:41)
[2019-02-22] MEDS: QUEtiapine 25mg tablet PO SCH (20:47)
[2019-02-22 22:00] VITALS: BP 116/55
--- NOTE | 2019-02-22 22:55 | NUR ---
unable to get orthostatic vitals Addendum: 02/22/19 at 3088 by Danilo Altamirano RN Amended: Links added.
[2019-02-23] MEDS: diazepam 5mg tablet PO PRN (05:44)
[2019-02-23 06:00] VITALS: BP 124/71
--- NOTE | 2019-02-23 06:00 | NUR ---
Patient in room ORTHO 4012. I have received report from Danilo IVERSON and had the opportunity to ask questions and assume patient care.
--- NOTE | 2019-02-23 06:24 | NUR ---
Problems reprioritized. Patient report given, questions answered & plan of care reviewed with Dian IVERSON.
[2019-02-23] MEDS: K and/or MAG REPLACEMENT MC SCH (08:00)
[2019-02-23] MEDS: clonazePAM 0.5mg tablet PO SCH ×2 (08:17→21:09)
[2019-02-23] MEDS: pramipexole 1mg tablet PO SCH ×3 (08:18→21:10)
[2019-02-23] MEDS: midodrine 5mg tablet PO SCH ×3 (08:19→16:10)
[2019-02-23] MEDS: duloxetine 30mg CAPSULE.DR PO SCH (08:20)
[2019-02-23] MEDS: fludrocortisone acetate 0.1mg tablet PO SCH (08:21)
[2019-02-23] MEDS: lactobacillus rhamnosus 10,000 MMU CELLS/CAPSULE PO SCH ×2 (08:23→21:09)
[2019-02-23] MEDS: pantoprazole 40mg Tablet.DR PO SCH (08:23)
[2019-02-23] MEDS: midodrine tablet 2.5 MG TABLET PO SCH ×3 (08:26→16:10)
[2019-02-23 10:00] VITALS: BP 174/54
[2019-02-23 12:49] VITALS: BP 102/73
[2019-02-23] MEDS: carbidoba-levodopa 25-100mg tablet PO SCH ×3 (13:04→21:09)
--- NOTE | 2019-02-23 18:17 | NUR ---
Problems reprioritized. Patient report given, questions answered & plan of care reviewed with Jayson IVERSON.
[2019-02-23 20:00] VITALS: BP_SYST 101; BP_SYST 143; BP_SYST 97; BP_DIAS 54; BP_DIAS 68; BP_DIAS 78
[2019-02-23] MEDS: QUEtiapine 25mg tablet PO SCH (21:10)
[2019-02-23 22:00] VITALS: BP_SYST 130; BP_SYST 143; BP_SYST 160; BP_DIAS 104; BP_DIAS 110; BP_DIAS 69
[2019-02-24] VITALS (7 sets, daily range): BP systolic 85–138; BP diastolic 43–100
[2019-02-24 06:26] LABS: BASOPHILS % (AUTO) 0.6 % (0-1); EOSINOPHILS # (AUTO) 0.4 X10'3 (0-0.9); EOSINOPHILS % (AUTO) 6.6 % (0-6); HEMATOCRIT 27.9 % (35.0-45.0); HEMOGLOBIN 9.6 g/dl (12.0-16.0); LYMPHOCYTES # (AUTO) 1.3 X10'3 (1.1-4.8); LYMPHOCYTES % (AUTO) 22.2 % (21-51); MEAN CORPUSCULAR HEMOGLOBIN 30.8 PG (27.0-31.0); MEAN CORPUSCULAR HGB CONC 34.2 g/dL (33.0-36.5); MEAN CORPUSCULAR VOLUME 89.8 FL (78-98); MEAN PLATELET VOLUME 6.8 FL (7.4-10.4); MONOCYTES # (AUTO) 0.3 X10'3 (0-0.9); MONOCYTES % (AUTO) 5.4 % (2-12); NEUTROPHILS # (AUTO) 3.9 X10'3 (1.8-7.7); NEUTROPHILS % (AUTO) 65.2 % (42-75); PLATELET COUNT 274 X10'3 (140-440); RED BLOOD COUNT 3.11 X10'6 (4.20-5.60); RED CELL DISTRIBUTION WIDTH 15.8 % (11.5-14.5); WHITE BLOOD COUNT 5.9 X10'3 (4.5-11.0)
--- NOTE | 2019-02-24 06:32 | NUR ---
Patient in room ORTHO 4012. I have received report from Jayson IVERSON and had the opportunity to ask questions and assume patient care.
[2019-02-24 06:39] LABS: ALANINE AMINOTRANSFERASE 13 U/L (12-78); ALBUMIN/GLOBULIN RATIO 0.7 (1.1-1.5); ALKALINE PHOSPHATASE 99 IU/L (46-116); ANION GAP 6 (8-16); ASPARTATE AMINO TRANSFERASE 18 U/L (10-37); BILIRUBIN,TOTAL 0.5 MG/DL (0.1-1.0); BLOOD UREA NITROGEN 29 MG/DL (7-18); BUN/CREATININE RATIO 12.3 (6.6-38.0); CALCIUM 8.9 MG/DL (8.5-10.1); CHLORIDE 105 MMOL/L (99-107); CREATININE 2.36 MG/DL (0.40-0.90); GLUCOSE 98 MG/DL (70-104); MAGNESIUM 1.9 MG/DL (1.5-2.4); PHOSPHORUS 3.6 MG/DL (2.3-4.5); POTASSIUM 4.3 MMOL/L (3.5-5.1); SODIUM 140 MMOL/L (135-145); TOTAL CARBON DIOXIDE 29.1 MMOL/L (24-32); TOTAL PROTEIN 7.3 G/DL (6.4-8.2); eGFR 20 ML/MIN
[2019-02-24] MEDS: K and/or MAG REPLACEMENT MC SCH (08:00)
[2019-02-24] MEDS: fludrocortisone acetate 0.1mg tablet PO SCH (08:14)
[2019-02-24] MEDS: duloxetine 30mg CAPSULE.DR PO SCH (08:19)
[2019-02-24] MEDS: midodrine 5mg tablet PO SCH ×3 (08:27→16:28)
[2019-02-24] MEDS: midodrine tablet 2.5 MG TABLET PO SCH ×3 (08:27→16:28)
[2019-02-24] MEDS: clonazePAM 0.5mg tablet PO SCH ×2 (08:32→19:57)
[2019-02-24] MEDS: pantoprazole 40mg Tablet.DR PO SCH (08:32)
[2019-02-24] MEDS: lactobacillus rhamnosus 10,000 MMU CELLS/CAPSULE PO SCH ×2 (08:32→19:57)
[2019-02-24] MEDS: pramipexole 1mg tablet PO SCH ×3 (08:32→20:00)
[2019-02-24] MEDS ORDERED: normal saline 1000ml 1,000 ML IV ONE (09:20)
[2019-02-24] MEDS: carbidoba-levodopa 25-100mg tablet PO SCH ×3 (12:52→19:57)
[2019-02-24] MEDS: traMADol 50MG tablet PO PRN (12:54)
[2019-02-24] MEDS: normal saline 1000ml 1,000 ML IV SCH ×2 (16:33→22:40)
--- NOTE | 2019-02-24 18:10 | NUR ---
Patient in room ORTHO 4012. I have received report from Jorge L IVERSON with Dian IVERSON and had the opportunity to ask questions and assume patient care.
--- NOTE | 2019-02-24 18:16 | NUR ---
Problems reprioritized. Patient report given, questions answered & plan of care reviewed with Grace IVERSON.
[2019-02-24] MEDS: QUEtiapine 25mg tablet PO SCH (19:57)
--- NOTE | 2019-02-24 21:25 | NUR ---
I heard a call out for help from Ruby the PCT and I saw patient on her hands and knees on the floor with Nely supporting her, with gait belt on and FWW in front of the patient. Nely had taken patient to the bathroom and was walking her back to bed when the pt started leaning over the FWW and and her legs just started to collapse under her. Nely had asked her to stand up straight with the FWW before all of a sudden her legs just collapsed. Nely tried to keep patient off floor with the gait belt but patient unable to stand up straight and her legs gave away. I along with another aide and another RN assisted patient off the floor and onto the bed. No abrasion or bruises noted to her legs, knees. She did have some pinkness to the palms of her hands where she pressed them against the floor. Pre and Post vitals remain within normal range. I will call the interim controller Hospitalist and inform the pt's nurse; Grace when she comes back from break.
--- NOTE | 2019-02-24 22:19 | NUR ---
Dr. Almeida the night time Hospitalist was notified of pt's fall and that there was no injury noted. No orders given at this time.
--- NOTE | 2019-02-24 22:20 | NUR ---
Nursing Informatics Manager made aware of pt fall. will continue to monitor.
[2019-02-25] VITALS (7 sets, daily range): BP systolic 71–149; BP diastolic 18–85
[2019-02-25] MEDS: normal saline 1000ml 1,000 ML IV SCH ×2 (05:07→12:00)
--- NOTE | 2019-02-25 06:23 | NUR ---
Problems reprioritized. Patient report given, questions answered & plan of care reviewed with Jorge L RN with Dian RN.
[2019-02-25 06:25] LABS: ALANINE AMINOTRANSFERASE 10 U/L (12-78); ALBUMIN 2.6 G/DL (3.4-5.0); ALBUMIN/GLOBULIN RATIO 0.7 (1.1-1.5); ALKALINE PHOSPHATASE 85 IU/L (46-116); ANION GAP 8 (8-16); ASPARTATE AMINO TRANSFERASE 11 U/L (10-37); BILIRUBIN,TOTAL 0.3 MG/DL (0.1-1.0); BLOOD UREA NITROGEN 23 MG/DL (7-18); BUN/CREATININE RATIO 14.6 (6.6-38.0); CALCIUM 8.2 MG/DL (8.5-10.1); CHLORIDE 108 MMOL/L (99-107); CREATININE 1.57 MG/DL (0.40-0.90); GLUCOSE 90 MG/DL (70-104); MAGNESIUM 1.7 MG/DL (1.5-2.4); PHOSPHORUS 3.2 MG/DL (2.3-4.5); POTASSIUM 4.2 MMOL/L (3.5-5.1); SODIUM 142 MMOL/L (135-145); TOTAL CARBON DIOXIDE 26.2 MMOL/L (24-32); TOTAL PROTEIN 6.5 G/DL (6.4-8.2); eGFR 32 ML/MIN
--- NOTE | 2019-02-25 06:35 | NUR ---
Patient in room ORTHO 4012. I have received report from Grace IVERSON and had the opportunity to ask questions and assume patient care.
[2019-02-25 06:52] LABS: BASOPHILS % (AUTO) 0.4 % (0-1); EOSINOPHILS # (AUTO) 0.5 X10'3 (0-0.9); HEMATOCRIT 27.1 % (35.0-45.0); HEMOGLOBIN 9.1 g/dl (12.0-16.0); LYMPHOCYTES # (AUTO) 1.4 X10'3 (1.1-4.8); LYMPHOCYTES % (AUTO) 25.4 % (21-51); MEAN CORPUSCULAR HEMOGLOBIN 30.5 PG (27.0-31.0); MEAN CORPUSCULAR HGB CONC 33.6 g/dL (33.0-36.5); MEAN PLATELET VOLUME 6.9 FL (7.4-10.4); MONOCYTES # (AUTO) 0.3 X10'3 (0-0.9); MONOCYTES % (AUTO) 4.8 % (2-12); NEUTROPHILS # (AUTO) 3.3 X10'3 (1.8-7.7); NEUTROPHILS % (AUTO) 60.4 % (42-75); PLATELET COUNT 236 X10'3 (140-440); RED BLOOD COUNT 2.98 X10'6 (4.20-5.60); RED CELL DISTRIBUTION WIDTH 16.2 % (11.5-14.5); WHITE BLOOD COUNT 5.4 X10'3 (4.5-11.0)
[2019-02-25] MEDS: K and/or MAG REPLACEMENT MC SCH (08:00)
[2019-02-25] MEDS: lactobacillus rhamnosus 10,000 MMU CELLS/CAPSULE PO SCH ×2 (08:00→20:04)
[2019-02-25] MEDS ORDERED: duloxetine 30mg CAPSULE.DR PO SCH (08:00)
[2019-02-25] MEDS: clonazePAM 0.5mg tablet PO SCH ×2 (08:00→20:03)
[2019-02-25] MEDS: pantoprazole 40mg Tablet.DR PO SCH (08:30)
[2019-02-25] MEDS: fludrocortisone acetate 0.1mg tablet PO SCH (08:51)
[2019-02-25] MEDS: pramipexole 1mg tablet PO SCH ×3 (08:51→20:04)
[2019-02-25] MEDS: midodrine 5mg tablet PO SCH ×3 (08:52→15:38)
[2019-02-25] MEDS: duloxetine 30mg CAPSULE.DR PO SCH (08:52)
[2019-02-25] MEDS: midodrine tablet 2.5 MG TABLET PO SCH ×3 (08:52→15:37)
--- NOTE | 2019-02-25 09:50 | NUR ---
Reassessment: PO intake slowly improving with documented 50-75% PO intake most recent meals. Pt with small and moderate BM 02/24, still only with PRN bowel care. Per MD notes pt confused with possible base line dementia, conservatorship has been requested, SW and CM following. Will continue to follow. Rec: 1. advance to regular diet per MD 2. MVI/mineral per MD approval 3. angeli lai and cranberry juice TID for GI issues per pt request 4. ensure puddings at breakfast 5. routine bowel care 6. weekly wts Addendum: 02/25/19 at [address] Amended: Links added.
[2019-02-25] MEDS: carbidoba-levodopa 25-100mg tablet PO SCH ×3 (12:49→20:03)
[2019-02-25] MEDS: diazepam 5mg tablet PO PRN (15:38)
--- NOTE | 2019-02-25 15:58 | NUR ---
I have reviewed and agree with all interventions, assessments performed and documented by Jorge L IVERSON.
--- NOTE | 2019-02-25 18:05 | NUR ---
Patient in room ORTHO 4009. I have received report from Dian IVERSON and had the opportunity to ask questions and assume patient care.
--- NOTE | 2019-02-25 18:25 | NUR ---
Problems reprioritized. Patient report given, questions answered & plan of care reviewed with Carlos IVERSON.
[2019-02-25] MEDS: QUEtiapine 25mg tablet PO SCH (20:03)
[2019-02-26] MEDS: normal saline 1000ml 1,000 ML IV SCH (00:35)
[2019-02-26 06:00] VITALS: BP 113/43
--- NOTE | 2019-02-26 06:14 | NUR ---
Problems reprioritized. Patient report given, questions answered & plan of care reviewed with Yuki IVERSON.
--- NOTE | 2019-02-26 06:30 | NUR ---
Patient in room ORTHO 4010. I have received report from ZAYRA Gonzalez and had the opportunity to ask questions and assume patient care.
[2019-02-26 07:11] LABS: BASOPHILS % (AUTO) 0.5 % (0-1); EOSINOPHILS # (AUTO) 0.4 X10'3 (0-0.9); EOSINOPHILS % (AUTO) 9.4 % (0-6); HEMOGLOBIN 9.2 g/dl (12.0-16.0); LYMPHOCYTES # (AUTO) 1.5 X10'3 (1.1-4.8); LYMPHOCYTES % (AUTO) 33.4 % (21-51); MEAN CORPUSCULAR HEMOGLOBIN 31.1 PG (27.0-31.0); MEAN CORPUSCULAR HGB CONC 34.3 g/dL (33.0-36.5); MEAN CORPUSCULAR VOLUME 90.6 FL (78-98); MEAN PLATELET VOLUME 6.6 FL (7.4-10.4); MONOCYTES # (AUTO) 0.3 X10'3 (0-0.9); MONOCYTES % (AUTO) 5.7 % (2-12); NEUTROPHILS # (AUTO) 2.4 X10'3 (1.8-7.7); PLATELET COUNT 222 X10'3 (140-440); RED BLOOD COUNT 2.97 X10'6 (4.20-5.60); RED CELL DISTRIBUTION WIDTH 16.2 % (11.5-14.5); WHITE BLOOD COUNT 4.6 X10'3 (4.5-11.0)
[2019-02-26 07:24] LABS: ALANINE AMINOTRANSFERASE 11 U/L (12-78); ALBUMIN 2.7 G/DL (3.4-5.0); ALBUMIN/GLOBULIN RATIO 0.7 (1.1-1.5); ALKALINE PHOSPHATASE 90 IU/L (46-116); ANION GAP 8 (8-16); ASPARTATE AMINO TRANSFERASE 14 U/L (10-37); BILIRUBIN,TOTAL 0.4 MG/DL (0.1-1.0); BLOOD UREA NITROGEN 18 MG/DL (7-18); BUN/CREATININE RATIO 14.8 (6.6-38.0); CALCIUM 8.1 MG/DL (8.5-10.1); CHLORIDE 110 MMOL/L (99-107); CREATININE 1.22 MG/DL (0.40-0.90); GLUCOSE 92 MG/DL (70-104); MAGNESIUM 1.6 MG/DL (1.5-2.4); PHOSPHORUS 2.8 MG/DL (2.3-4.5); POTASSIUM 4.3 MMOL/L (3.5-5.1); SODIUM 144 MMOL/L (135-145); TOTAL CARBON DIOXIDE 25.8 MMOL/L (24-32); TOTAL PROTEIN 6.7 G/DL (6.4-8.2); eGFR 43 ML/MIN
[2019-02-26] MEDS: K and/or MAG REPLACEMENT MC SCH (08:00)
[2019-02-26 08:45] VITALS: BP_SYST 134; BP_SYST 83; BP_SYST 95; BP_DIAS 30; BP_DIAS 62; BP_DIAS 72
[2019-02-26] MEDS: clonazePAM 0.5mg tablet PO SCH ×2 (09:32→20:05)
[2019-02-26] MEDS: pantoprazole 40mg Tablet.DR PO SCH (09:33)
[2019-02-26] MEDS: midodrine tablet 2.5 MG TABLET PO SCH ×3 (09:33→16:26)
[2019-02-26] MEDS: midodrine 5mg tablet PO SCH ×3 (09:33→16:26)
[2019-02-26] MEDS: fludrocortisone acetate 0.1mg tablet PO SCH (09:33)
[2019-02-26] MEDS: pramipexole 1mg tablet PO SCH ×3 (09:35→20:05)
[2019-02-26] MEDS: duloxetine 30mg CAPSULE.DR PO SCH (09:36)
[2019-02-26] MEDS: lactobacillus rhamnosus 10,000 MMU CELLS/CAPSULE PO SCH ×2 (09:36→20:04)
[2019-02-26 10:00] VITALS: BP 95/72
[2019-02-26] MEDS: carbidoba-levodopa 25-100mg tablet PO SCH ×3 (12:33→20:05)
[2019-02-26 18:00] VITALS: BP 178/73
--- NOTE | 2019-02-26 18:20 | NUR ---
Received report from Yuki IVERSON, assumed care of patient.
--- NOTE | 2019-02-26 18:30 | NUR ---
Problems reprioritized. Patient report given, questions answered & plan of care reviewed with ZAYRA Harvey.
[2019-02-26] MEDS: QUEtiapine 25mg tablet PO SCH (20:06)
--- NOTE | 2019-02-26 21:12 | NUR ---
Pt refusing routine vital signs and orthostatics at this time. Will attempt later in shift.
[2019-02-27] MEDS: traMADol 50MG tablet PO PRN ×2 (03:32→16:28)
[2019-02-27] MEDS: diazepam 5mg tablet PO PRN ×2 (04:29→14:15)
[2019-02-27 06:00] VITALS: BP 144/80
--- NOTE | 2019-02-27 06:14 | NUR ---
Report given to Yuki IVERSON.
[2019-02-27 07:49] VITALS: BP 144/80
[2019-02-27] MEDS: K and/or MAG REPLACEMENT MC SCH (08:00)
[2019-02-27] MEDS: duloxetine 30mg CAPSULE.DR PO SCH (08:41)
[2019-02-27] MEDS: midodrine tablet 2.5 MG TABLET PO SCH ×3 (08:41→16:27)
[2019-02-27] MEDS: pantoprazole 40mg Tablet.DR PO SCH (08:41)
[2019-02-27] MEDS: fludrocortisone acetate 0.1mg tablet PO SCH (08:41)
[2019-02-27] MEDS: midodrine 5mg tablet PO SCH ×3 (08:41→16:27)
[2019-02-27] MEDS: lactobacillus rhamnosus 10,000 MMU CELLS/CAPSULE PO SCH ×2 (08:41→20:26)
[2019-02-27] MEDS: clonazePAM 0.5mg tablet PO SCH ×2 (08:41→20:26)
[2019-02-27] MEDS: pramipexole 1mg tablet PO SCH ×3 (08:44→20:26)
[2019-02-27 10:00] VITALS: BP 132/64
[2019-02-27] MEDS: carbidoba-levodopa 25-100mg tablet PO SCH ×3 (14:14→20:26)
--- NOTE | 2019-02-27 14:50 | NUR ---
Pt has been lethargic and has episodic dementia where she is very clear and then approximately 30 minutes to one hour later she is disoriented and has difficulty speaking clearly as well as has increased behaviors of calling employees, and visitors names that are disrespectful. Pt speaks profanity much of the time, then appears to clear and apologizes for her behaviors, and asks "Did I offend any of the doctors or other people around here today." Pt has poor recall of her actions from day to day, hour to hour.
[2019-02-27 18:00] VITALS: BP 159/66
--- NOTE | 2019-02-27 18:00 | NUR ---
Received report from Yuki IVERSON, assumed care of patient with Candice IVERSON.
[2019-02-27 20:00] VITALS: BP_SYST 109; BP_SYST 135; BP_DIAS 39; BP_DIAS 47
[2019-02-27] MEDS: QUEtiapine 25mg tablet PO SCH (20:26)
--- NOTE | 2019-02-27 21:38 | NUR ---
attempted to take patients orthostatic vitals with a nurses aide. patient was compliant with supine & sitting blood pressures, but was not compliant with standing measurements.
[2019-02-27 22:00] VITALS: BP 135/47
--- NOTE | 2019-02-28 05:46 | NUR ---
In agreement with and have reviewed all charting and med pass completed by Viviana IVERSON for the shift time frame.
[2019-02-28 06:00] VITALS: BP 123/46
--- NOTE | 2019-02-28 06:00 | NUR ---
Gave report to Yuki IVERSON.
[2019-02-28 08:00] VITALS: BP_SYST 102; BP_SYST 124; BP_DIAS 35; BP_DIAS 66
[2019-02-28] MEDS: K and/or MAG REPLACEMENT MC SCH (08:00)
[2019-02-28] MEDS: midodrine tablet 2.5 MG TABLET PO SCH ×3 (09:15→15:15)
[2019-02-28] MEDS: clonazePAM 0.5mg tablet PO SCH ×2 (09:15→19:41)
[2019-02-28] MEDS: duloxetine 30mg CAPSULE.DR PO SCH (09:15)
[2019-02-28] MEDS: lactobacillus rhamnosus 10,000 MMU CELLS/CAPSULE PO SCH ×2 (09:15→19:40)
[2019-02-28] MEDS: pramipexole 1mg tablet PO SCH ×3 (09:16→19:41)
[2019-02-28] MEDS: midodrine 5mg tablet PO SCH ×3 (09:16→15:15)
[2019-02-28] MEDS: fludrocortisone acetate 0.1mg tablet PO SCH (09:16)
[2019-02-28] MEDS: pantoprazole 40mg Tablet.DR PO SCH (09:17)
[2019-02-28 10:00] VITALS: BP 102/66
[2019-02-28] MEDS: traMADol 50MG tablet PO PRN (12:41)
[2019-02-28] MEDS: carbidoba-levodopa 25-100mg tablet PO SCH ×3 (12:56→19:40)
--- NOTE | 2019-02-28 18:45 | NUR ---
Patient in room ORTHO 4008. I have received report from Yuki IVERSON and had the opportunity to ask questions and assume patient care.
[2019-02-28] MEDS: QUEtiapine 25mg tablet PO SCH (19:40)
[2019-02-28] MEDS: diazepam 5mg tablet PO PRN (19:40)
[2019-02-28 20:00] VITALS: BP_SYST 111; BP_SYST 137; BP_SYST 75; BP_DIAS 44; BP_DIAS 63; BP_DIAS 74
--- NOTE | 2019-02-28 21:31 | NUR ---
Pt did not eat any of her hospital tray. [facility] worker brought in arminda rola meal and she ate burger, fries and slushie. Addendum: 02/28/19 at 2133 by Yu Sweeney RN Amended: Links added.
[2019-02-28 22:00] VITALS: BP 111/63
[2019-03-01] MEDS: traMADol 50MG tablet PO PRN ×2 (02:13→19:52)
[2019-03-01] MEDS: mag hydrox/Alum hydrox/simeth 30ml oral suspension PO PRN (02:19)
[2019-03-01 06:10] VITALS: BP 118/58
--- NOTE | 2019-03-01 06:30 | NUR ---
Patient in room ORTHO 4008. I have received report from Yu IVERSON and had the opportunity to ask questions and assume patient care.
--- NOTE | 2019-03-01 06:37 | NUR ---
Problems reprioritized. Patient report given, questions answered & plan of care reviewed with Nimisha IVERSON.
[2019-03-01] MEDS: clonazePAM 0.5mg tablet PO SCH ×2 (07:35→19:44)
[2019-03-01] MEDS: lactobacillus rhamnosus 10,000 MMU CELLS/CAPSULE PO SCH ×2 (07:35→19:44)
[2019-03-01] MEDS: pramipexole 1mg tablet PO SCH ×3 (07:36→19:44)
[2019-03-01] MEDS: midodrine 5mg tablet PO SCH ×3 (07:36→15:25)
[2019-03-01] MEDS: duloxetine 30mg CAPSULE.DR PO SCH (07:36)
[2019-03-01] MEDS: midodrine tablet 2.5 MG TABLET PO SCH ×3 (07:36→15:24)
[2019-03-01] MEDS: K and/or MAG REPLACEMENT MC SCH (08:00)
[2019-03-01 10:00] VITALS: BP 131/52
--- NOTE | 2019-03-01 11:15 | NUR ---
reassessment: Pt PO 50-75% 5days fluctuating to 100% breakfasts meeting needs. Possible dementia r/t Parkinsons per MD note. LBM 02/28. Will continue to monitor. Rec: 1. advance to regular diet per MD 2. MVI/mineral per MD approval 3. angeli lai and cranberry juice TID for GI issues per pt request 4. ensure puddings at breakfast 5. routine bowel care 6. weekly wts Addendum: 03/01/19 at [address] Amended: Links added.
[2019-03-01] MEDS: fludrocortisone acetate 0.1mg tablet PO SCH (11:44)
[2019-03-01] MEDS: carbidoba-levodopa 25-100mg tablet PO SCH ×3 (11:44→19:44)
[2019-03-01] MEDS: pantoprazole 40mg Tablet.DR PO SCH (11:44)
[2019-03-01] MEDS: diazepam 5mg tablet PO PRN (14:06)
[2019-03-01 15:53] VITALS: BP_SYST 117; BP_SYST 177; BP_SYST 95; BP_DIAS 49; BP_DIAS 54; BP_DIAS 56
[2019-03-01 18:00] VITALS: BP 136/55
--- NOTE | 2019-03-01 18:07 | NUR ---
Patient report given to Candice Martinez RN
[2019-03-01] MEDS: QUEtiapine 25mg tablet PO SCH (19:44)
[2019-03-01 22:00] VITALS: BP 135/53
[2019-03-02 06:00] VITALS: BP 134/65
--- NOTE | 2019-03-02 06:22 | NUR ---
Problems reprioritized. Patient report given, questions answered & plan of care reviewed with ZAYRA Carrasco.
--- NOTE | 2019-03-02 06:25 | NUR ---
Patient in room ORTHO 4008. I have received report from Candice Martinez RN and had the opportunity to ask questions and assume patient care.
[2019-03-02] MEDS: K and/or MAG REPLACEMENT MC SCH (07:16)
[2019-03-02] MEDS: lactobacillus rhamnosus 10,000 MMU CELLS/CAPSULE PO SCH ×2 (08:00→18:52)
[2019-03-02] MEDS: duloxetine 30mg CAPSULE.DR PO SCH (08:00)
[2019-03-02] MEDS: clonazePAM 0.5mg tablet PO SCH ×2 (08:00→18:52)
[2019-03-02] MEDS: midodrine 5mg tablet PO SCH ×3 (08:00→15:31)
[2019-03-02] MEDS: midodrine tablet 2.5 MG TABLET PO SCH ×3 (08:00→15:31)
[2019-03-02] MEDS: pramipexole 1mg tablet PO SCH ×3 (08:01→18:53)
[2019-03-02] MEDS: fludrocortisone acetate 0.1mg tablet PO SCH (08:01)
[2019-03-02] MEDS: pantoprazole 40mg Tablet.DR PO SCH (08:01)
[2019-03-02] MEDS: traMADol 50MG tablet PO PRN ×2 (08:05→18:53)
[2019-03-02 10:00] VITALS: BP 160/63
[2019-03-02] MEDS: carbidoba-levodopa 25-100mg tablet PO SCH ×3 (12:17→18:52)
[2019-03-02] MEDS: diazepam 5mg tablet PO PRN (12:25)
[2019-03-02 13:38] VITALS: BP_SYST 109; BP_SYST 114; BP_SYST 127; BP_DIAS 45; BP_DIAS 49; BP_DIAS 64
--- NOTE | 2019-03-02 14:29 | NUR ---
called caregiver Franci and left message to call back, patient needs clothes and beading supplies to take with her to [facility] on Wednesday
[2019-03-02 18:00] VITALS: BP 168/72
--- NOTE | 2019-03-02 18:18 | NUR ---
Problems reprioritized. Patient report given, questions answered & plan of care reviewed with Candice Martinez RN.
[2019-03-02] MEDS: QUEtiapine 25mg tablet PO SCH (18:52)
[2019-03-02 20:00] VITALS: BP_SYST 115; BP_SYST 131; BP_SYST 162; BP_DIAS 62; BP_DIAS 70; BP_DIAS 94
[2019-03-02 22:00] VITALS: BP 162/70
[2019-03-03 06:00] VITALS: BP 134/50
--- NOTE | 2019-03-03 06:26 | NUR ---
Problems reprioritized. Patient report given, questions answered & plan of care reviewed with ZAYRA Carrasco.
--- NOTE | 2019-03-03 06:33 | NUR ---
Patient in room ORTHO 4008. I have received report from Candice Martinez RN and had the opportunity to ask questions and assume patient care.
[2019-03-03] MEDS: fludrocortisone acetate 0.1mg tablet PO SCH (07:52)
[2019-03-03] MEDS: pantoprazole 40mg Tablet.DR PO SCH (07:53)
[2019-03-03] MEDS: clonazePAM 0.5mg tablet PO SCH ×2 (07:53→19:48)
[2019-03-03] MEDS: traMADol 50MG tablet PO PRN (07:53)
[2019-03-03] MEDS: duloxetine 30mg CAPSULE.DR PO SCH ×2 (07:54→08:00)
[2019-03-03] MEDS: midodrine tablet 2.5 MG TABLET PO SCH ×3 (07:54→16:24)
[2019-03-03] MEDS: lactobacillus rhamnosus 10,000 MMU CELLS/CAPSULE PO SCH ×2 (07:54→19:48)
[2019-03-03] MEDS: pramipexole 1mg tablet PO SCH ×4 (07:54→19:48)
[2019-03-03] MEDS: midodrine 5mg tablet PO SCH ×3 (07:54→16:24)
[2019-03-03 08:00] VITALS: BP_SYST 132; BP_SYST 141; BP_SYST 90; BP_DIAS 30; BP_DIAS 57; BP_DIAS 70
[2019-03-03] MEDS: K and/or MAG REPLACEMENT MC SCH (08:00)
--- NOTE | 2019-03-03 09:11 | NUR ---
Problems reprioritized. Patient report given, questions answered & plan of care reviewed with Dian IVERSON.
[2019-03-03 09:31] VITALS: BP 169/55
[2019-03-03] MEDS: diazepam 5mg tablet PO PRN (13:05)
[2019-03-03] MEDS: carbidoba-levodopa 25-100mg tablet PO SCH ×3 (13:06→19:49)
[2019-03-03 18:00] VITALS: BP 169/74
--- NOTE | 2019-03-03 18:08 | NUR ---
Problems reprioritized. Patient report given, questions answered & plan of care reviewed with Candice Martinez RN.
[2019-03-03] MEDS: QUEtiapine 25mg tablet PO SCH (19:49)
[2019-03-03 20:00] VITALS: BP_SYST 112; BP_SYST 133; BP_SYST 80; BP_DIAS 37; BP_DIAS 42; BP_DIAS 54
[2019-03-03 22:00] VITALS: BP 112/54
[2019-03-04] MEDS: traMADol 50MG tablet PO PRN ×2 (05:05→14:46)
--- NOTE | 2019-03-04 06:12 | NUR ---
Problems reprioritized. Patient report given, questions answered & plan of care reviewed with ZAYRA Biggs and ZAYRA Coats.
--- NOTE | 2019-03-04 06:42 | NUR ---
Patient in room ORTHO 4008. I have received report from Candice IVERSON and had the opportunity to ask questions and assume patient care.
[2019-03-04 06:43] VITALS: BP 139/63
[2019-03-04] MEDS: K and/or MAG REPLACEMENT MC SCH (08:00)
[2019-03-04] MEDS: midodrine 5mg tablet PO SCH ×3 (08:28→16:06)
[2019-03-04] MEDS: fludrocortisone acetate 0.1mg tablet PO SCH (08:28)
[2019-03-04] MEDS: clonazePAM 0.5mg tablet PO SCH ×2 (08:28→20:00)
[2019-03-04] MEDS: lactobacillus rhamnosus 10,000 MMU CELLS/CAPSULE PO SCH ×2 (08:28→20:00)
[2019-03-04] MEDS: pramipexole 1mg tablet PO SCH ×3 (08:28→21:00)
[2019-03-04] MEDS: pantoprazole 40mg Tablet.DR PO SCH (08:28)
[2019-03-04] MEDS: duloxetine 30mg CAPSULE.DR PO SCH (08:28)
[2019-03-04] MEDS: midodrine tablet 2.5 MG TABLET PO SCH ×3 (08:28→16:06)
[2019-03-04] MEDS: diazepam 5mg tablet PO PRN (10:07)
[2019-03-04 10:45] VITALS: BP 155/71
[2019-03-04] MEDS: carbidoba-levodopa 25-100mg tablet PO SCH ×3 (12:21→20:30)
[2019-03-04 12:25] VITALS: BP_SYST 104; BP_SYST 114; BP_SYST 123; BP_DIAS 58; BP_DIAS 65; BP_DIAS 76
[2019-03-04 18:00] VITALS: BP 153/74
--- NOTE | 2019-03-04 18:24 | NUR ---
Problems reprioritized. Patient report given, questions answered & plan of care reviewed with Walter IVERSON.
--- NOTE | 2019-03-04 18:24 | NUR ---
I have reviewed and agree with all interventions, assessments performed and documented by Jorge L IVERSON.
--- NOTE | 2019-03-04 18:30 | NUR ---
Patient in room ORTHO 4008. I have received report from Jorge L IVERSON and had the opportunity to ask questions and assume patient care.
--- NOTE | 2019-03-04 19:52 | NUR ---
Pt is currently refusing all care. States "Get away from me, I want to fuckin' go home". Pt having severe parkinsons tremors, refusing medications. will continue to monitor closely and offer ordered medications.
[2019-03-04] MEDS: QUEtiapine 25mg tablet PO SCH (20:30)
--- NOTE | 2019-03-04 20:37 | NUR ---
Pt refused all meds, and proceeded to throw her enidotshira pisano to express irritancy at the event. Addendum: 03/04/19 at 2038 by Mason Burrows RN Pt repeatedly stated "You aren't a doctor. I won't take pills from you". RN expressed to pt that RNs have authority to give meds that the doctor prescribed. Pt continues to refuse meds.
[2019-03-04 22:00] VITALS: BP 146/65
--- NOTE | 2019-03-04 22:42 | NUR ---
Patient refuses to wear oxygen although her saturations range from 86-90%. Patient throws oxygen tubing and candy and tries to hit staff with tubing. Patient educated on risks of lack of oxygen to the body, patient continues to refuse.
--- NOTE | 2019-03-05 01:02 | NUR ---
Patient finally drank some water that was offered to her. She had been refusing any water or comfort measures all night. Pt refused any more care after drinking water.
--- NOTE | 2019-03-05 01:07 | NUR ---
To RN knowledge, pt has not voided this evening. Pt refuses to turn to check for incontinence, stating "Why are you doing this, I'm not wet! Get out of here!". Bladder scan will be done if patient allows. Concern about lack of urine output was discussed with the patient.
--- NOTE | 2019-03-05 01:21 | NUR ---
Patient heard yelling, to rn sounded like "Please kill me". Patient denies this. Patient did drink some more water.
[2019-03-05] MEDS: diazepam 5mg tablet PO PRN ×2 (04:26→23:52)
[2019-03-05 06:00] VITALS: BP 145/74
--- NOTE | 2019-03-05 06:00 | NUR ---
Patient in room ORTHO 4008. I have received report from and had the opportunity to ask questions and assume patient care ZAYRA Watson.
--- NOTE | 2019-03-05 06:26 | NUR ---
Problems reprioritized. Patient report given, questions answered & plan of care reviewed with oncoming RN.
[2019-03-05] MEDS: K and/or MAG REPLACEMENT MC SCH (08:00)
[2019-03-05] MEDS: pantoprazole 40mg Tablet.DR PO SCH (08:29)
[2019-03-05] MEDS: midodrine 5mg tablet PO SCH ×3 (08:29→16:28)
[2019-03-05] MEDS: pramipexole 1mg tablet PO SCH ×3 (08:29→21:55)
[2019-03-05] MEDS: midodrine tablet 2.5 MG TABLET PO SCH ×3 (08:29→16:28)
[2019-03-05] MEDS: fludrocortisone acetate 0.1mg tablet PO SCH (08:29)
[2019-03-05] MEDS: duloxetine 30mg CAPSULE.DR PO SCH (08:30)
[2019-03-05] MEDS: lactobacillus rhamnosus 10,000 MMU CELLS/CAPSULE PO SCH ×2 (08:30→21:54)
[2019-03-05] MEDS: clonazePAM 0.5mg tablet PO SCH ×2 (08:30→21:54)
[2019-03-05] MEDS: carbidoba-levodopa 25-100mg tablet PO SCH ×3 (13:09→21:55)
[2019-03-05 18:00] VITALS: BP 151/77
--- NOTE | 2019-03-05 18:12 | NUR ---
Patient in room ORTHO 4008. I have received report from Shobha IVERSON and had the opportunity to ask questions and assume patient care.
[2019-03-05] MEDS: QUEtiapine 25mg tablet PO SCH (21:55)
[2019-03-06 06:00] VITALS: BP 120/43
--- NOTE | 2019-03-06 06:14 | NUR ---
Problems reprioritized. Patient report given, questions answered & plan of care reviewed with Shobha IVERSON.
[2019-03-06] MEDS: K and/or MAG REPLACEMENT MC SCH (08:00)
[2019-03-06] MEDS: fludrocortisone acetate 0.1mg tablet PO SCH (08:25)
[2019-03-06] MEDS: midodrine tablet 2.5 MG TABLET PO SCH ×3 (08:28→17:40)
[2019-03-06] MEDS: duloxetine 30mg CAPSULE.DR PO SCH (08:28)
[2019-03-06] MEDS: lactobacillus rhamnosus 10,000 MMU CELLS/CAPSULE PO SCH ×2 (08:28→21:09)
[2019-03-06] MEDS: midodrine 5mg tablet PO SCH ×3 (08:28→17:40)
[2019-03-06] MEDS: clonazePAM 0.5mg tablet PO SCH ×2 (08:28→21:10)
[2019-03-06] MEDS: pantoprazole 40mg Tablet.DR PO SCH (08:28)
[2019-03-06] MEDS: pramipexole 1mg tablet PO SCH ×3 (08:29→21:11)
[2019-03-06] MEDS: carbidoba-levodopa 25-100mg tablet PO SCH ×3 (12:54→21:11)
[2019-03-06] MEDS: diazepam 5mg tablet PO PRN (13:27)
--- NOTE | 2019-03-06 16:04 | NUR ---
reassessment: Pt hallucinates per MD note. PO 25-50%. Per RN pt will mostly eat finger foods r/t dexterity issues, would like sandwiches TID, and likes sweeter drinks as well as applesauce w/ meds. Pt requesting sandwiches but noted prior dislike of gluten and wheat which is no longer valid given pt hx and requests. RD notified dietary; will send sandwich TIDWM, ensure enlive TIDWM pending MD verification, d/c ensure and power puddings, continue juices, and finger foods. Per RN pt reports LBM 2 days ago though last documented 02/28 and has PRN bowel care. KELLEE d/w RN for routine bowel care per MD approval. Will continue to monitor. Rec: 1. advance to regular diet per MD 2. MVI/mineral per MD approval 3. angeli lai and cranberry juice TID for GI issues per pt request 4. ensure enlive TIDWM; pending MD verification prior to sending on trays 5. honor pt food preferences; finger foods; see above 6. routine bowel care 7. weekly wts Addendum: 03/06/19 at [address] Amended: Links added.
[2019-03-06 18:00] VITALS: BP 159/66
[2019-03-06] MEDS ORDERED: lactose-reduced food (Ensure Enlive) - 237ml bottle PO SCH (18:00)
--- NOTE | 2019-03-06 18:24 | NUR ---
Problems reprioritized. Patient report given, questions answered & plan of care reviewed with ZAYRA Donovan.
--- NOTE | 2019-03-06 18:25 | NUR ---
Patient in room ORTHO 4008. I have received report from Shobha IVERSON and had the opportunity to ask questions and assume patient care.
[2019-03-06] MEDS: QUEtiapine 25mg tablet PO SCH (21:10)
[2019-03-06 22:00] VITALS: BP 167/76
--- NOTE | 2019-03-07 01:30 | NUR ---
PT BRUSHED DENTURES, AND TONGUE, HAS WHITE COAT ON TONGUE GUMS CLEAR. Addendum: 03/08/19 at 0338 by Sandra Xiao RN Amended: Links added.
[2019-03-07] MEDS: traMADol 50MG tablet PO PRN ×2 (05:10→20:42)
[2019-03-07 06:00] VITALS: BP 98/77
--- NOTE | 2019-03-07 06:26 | NUR ---
Problems reprioritized. Patient report given, questions answered & plan of care reviewed with Sagrario IVERSON.
--- NOTE | 2019-03-07 06:35 | NUR ---
Received report from Venus IVERSON
[2019-03-07] MEDS: K and/or MAG REPLACEMENT MC SCH (08:00)
[2019-03-07] MEDS: pramipexole 1mg tablet PO SCH ×3 (08:09→20:41)
[2019-03-07] MEDS: fludrocortisone acetate 0.1mg tablet PO SCH (08:09)
[2019-03-07] MEDS: midodrine 5mg tablet PO SCH ×3 (08:09→16:13)
[2019-03-07] MEDS: pantoprazole 40mg Tablet.DR PO SCH (08:09)
[2019-03-07] MEDS: clonazePAM 0.5mg tablet PO SCH ×2 (08:09→20:41)
[2019-03-07] MEDS: lactobacillus rhamnosus 10,000 MMU CELLS/CAPSULE PO SCH ×2 (08:10→20:41)
[2019-03-07] MEDS: midodrine tablet 2.5 MG TABLET PO SCH ×3 (08:10→16:13)
[2019-03-07] MEDS: duloxetine 30mg CAPSULE.DR PO SCH (08:11)
[2019-03-07 11:43] VITALS: BP 120/44
[2019-03-07] MEDS: carbidoba-levodopa 25-100mg tablet PO SCH ×3 (12:44→20:41)
[2019-03-07 18:30] VITALS: BP 166/67
--- NOTE | 2019-03-07 18:31 | NUR ---
Patient in room ORTHO 4008. I have received report from ZAYRA Zabala and had the opportunity to ask questions and assume patient care. Addendum: 03/07/19 at 1840 by Sandra Xiao RN Amended: Links added.
[2019-03-07] MEDS: QUEtiapine 25mg tablet PO SCH (20:42)
--- NOTE | 2019-03-07 22:00 | NUR ---
Pt refuses orthostatic vs. refuses to cooperate or sit and stand. Addendum: 03/08/19 at 0107 by Sandra Xiao RN Amended: Links added.
--- NOTE | 2019-03-07 22:30 | NUR ---
pt refusing vs. Addendum: 03/08/19 at 0023 by Sandra Xiao RN Amended: Links added.
[2019-03-08 06:00] VITALS: BP_SYST 109; BP_SYST 181; BP_DIAS 49; BP_DIAS 89
--- NOTE | 2019-03-08 06:05 | NUR ---
Problems reprioritized. Patient report given, questions answered & plan of care reviewed with RN. Addendum: 03/08/19 at 0640 by Sandra Xiao RN Amended: Links added.
--- NOTE | 2019-03-08 06:30 | NUR ---
received report from mary jo david
[2019-03-08] MEDS: K and/or MAG REPLACEMENT MC SCH (08:00)
--- NOTE | 2019-03-08 08:00 | NUR ---
unable to obtain pts ortho statics vs at this time
[2019-03-08] MEDS: clonazePAM 0.5mg tablet PO SCH ×2 (08:38→19:39)
[2019-03-08] MEDS: duloxetine 30mg CAPSULE.DR PO SCH (08:40)
[2019-03-08] MEDS: fludrocortisone acetate 0.1mg tablet PO SCH (08:42)
[2019-03-08] MEDS: midodrine tablet 2.5 MG TABLET PO SCH ×3 (08:44→15:24)
[2019-03-08] MEDS: midodrine 5mg tablet PO SCH ×3 (08:46→15:24)
[2019-03-08] MEDS: pramipexole 1mg tablet PO SCH ×3 (08:50→21:03)
[2019-03-08] MEDS: pantoprazole 40mg Tablet.DR PO SCH (08:50)
[2019-03-08] MEDS: lactobacillus rhamnosus 10,000 MMU CELLS/CAPSULE PO SCH ×2 (08:51→20:00)
[2019-03-08 10:00] VITALS: BP 101/49
[2019-03-08] MEDS: traMADol 50MG tablet PO PRN (12:24)
[2019-03-08] MEDS: carbidoba-levodopa 25-100mg tablet PO SCH ×3 (12:25→21:03)
[2019-03-08] MEDS: nystatin 500,000 unit/5ML UD oral suspension PO SCH ×2 (15:19→21:09)
--- NOTE | 2019-03-08 18:27 | NUR ---
gave report to mary jo urban
[2019-03-08] MEDS: QUEtiapine 25mg tablet PO SCH (21:03)
[2019-03-09 06:49] VITALS: BP 94/36
--- NOTE | 2019-03-09 06:50 | NUR ---
Patient in room ORTHO 4008. I have received report from Talisha IVERSON and had the opportunity to ask questions and assume patient care.
[2019-03-09] MEDS: K and/or MAG REPLACEMENT MC SCH (08:00)
[2019-03-09] MEDS: duloxetine 30mg CAPSULE.DR PO SCH (08:00)
[2019-03-09] MEDS: pramipexole 1mg tablet PO SCH (08:00)
[2019-03-09] MEDS: lactobacillus rhamnosus 10,000 MMU CELLS/CAPSULE PO SCH (08:00)
[2019-03-09] MEDS: fludrocortisone acetate 0.1mg tablet PO SCH ×2 (08:30→10:58)
[2019-03-09] MEDS: nystatin 500,000 unit/5ML UD oral suspension PO SCH (08:46)
[2019-03-09] MEDS: clonazePAM 0.5mg tablet PO SCH (08:49)
[2019-03-09] MEDS: pantoprazole 40mg Tablet.DR PO SCH (08:50)
[2019-03-09] MEDS: midodrine 5mg tablet PO SCH ×2 (08:50→11:50)
[2019-03-09] MEDS: midodrine tablet 2.5 MG TABLET PO SCH ×2 (08:50→11:50)
[2019-03-09 10:00] VITALS: BP 95/45
[2019-03-09] MEDS: traMADol 50MG tablet PO PRN (10:58)
[2019-03-09] MEDS: diazepam 5mg tablet PO PRN (11:50)
[2019-03-09] MEDS: carbidoba-levodopa 25-100mg tablet PO SCH (11:50)
--- NOTE | 2019-03-09 12:14 | NUR ---
Pt left with [facility] personnel. all items and belongings with Pt.
--- NOTE | 2019-03-09 12:30 | NUR ---
I have reviewed and agree with all interventions, assessments performed and documented by Jorge L IVERSON.
== END 2019-03-09 12:10 | DRG 74 ==
LOC: ER 12:10 → ORTHO 4S 19:51 → UNDOADMOB 19:51 → ORTHO 4S 19:53 → OBSVTOIN 19:53 → CMPBEDREQ 01-30 08:05 → ORTHO 4S 01-30 21:00 → UNDODISIN 02-13 15:19 → ORTHO 4S 02-25 13:00
PROVIDERS: ADMIT Family Medicine; ATTEND Internal Medicine
DX: G90.8 Other disorders of autonomic nervous system (principal); B37.0 Candidal stomatitis; I69.354 Hemiplegia and hemiparesis following cerebral infarction affecting left non-dominant side; R45.851 Suicidal ideations; N39.0 Urinary tract infection, site not specified; F33.1 Major depressive disorder, recurrent, moderate; G20 Parkinson's disease; I95.1 Orthostatic hypotension; R62.7 Adult failure to thrive; K21.9 Gastro-esophageal reflux disease without esophagitis; F02.80 Dementia in other diseases classified elsewhere, unspecified severity, without behavioral disturbance, psychotic disturbance, mood disturbance, and anxiety; B88.8 Other specified infestations; F41.9 Anxiety disorder, unspecified; M54.2 Cervicalgia; F12.90 Cannabis use, unspecified, uncomplicated; W18.39XA Other fall on same level, initial encounter; G89.29 Other chronic pain; N18.3 Chronic kidney disease, stage 3 (moderate); D63.8 Anemia in other chronic diseases classified elsewhere; R11.0 Nausea; I25.10 Atherosclerotic heart disease of native coronary artery without angina pectoris; Z60.2 Problems related to living alone; I48.0 Paroxysmal atrial fibrillation; B96.20 Unspecified Escherichia coli [E. coli] as the cause of diseases classified elsewhere; M20.092 Other deformity of left finger(s); G44.209 Tension-type headache, unspecified, not intractable; R29.6 Repeated falls; Z66 Do not resuscitate; Z82.3 Family history of stroke; Z87.891 Personal history of nicotine dependence; Z91.81 History of falling; Z90.49 Acquired absence of other specified parts of digestive tract; Z98.51 Tubal ligation status; Z68.28 Body mass index [BMI] 28.0-28.9, adult; Y93.89 Activity, other specified; Y92.098 Other place in other non-institutional residence as the place of occurrence of the external cause; Y99.8 Other external cause status; Z88.5 Allergy status to narcotic agent; Z81.1 Family history of alcohol abuse and dependence; Z79.899 Other long term (current) drug therapy; Z82.49 Family history of ischemic heart disease and other diseases of the circulatory system
CPT/HCPCS: 36415; 73560; 80053; 80061; 81001; 82948; 83036; 83735; 84100; 84443; 85025; 85610; 87077; 87081; 87088; 87186; 97110; 97116; 97162; 97530; 97535; G0378; J1644; J3475; J7030; Q0163; Q0167

== ENCOUNTER 2019-06-27 13:49 | Emergency (ER) | payer MEDICARE, MEDICAID ==
[~2019-06-27] VITALS: Ht 165.1 cm; Wt 75.0 kg
[~2019-06-27 13:49] MED LIST changes: -APIX5TAB3 PO; +CARB1TAB23 PO; -CARB1TAB44 PO; -CARCD120C PO; -OMEP-50 PO; +OMEP20CA11 PO; +PHEN-888 PO; +TRAM50TA2 PO
[2019-06-27] MEDS ORDERED: carbidoba-levodopa 25-100mg tablet PO SCH (14:15)
[2019-06-27 14:31] LABS: BASOPHILS % (AUTO) 0.4 % (0-1); EOSINOPHILS # (AUTO) 0.1 X10'3 (0-0.9); EOSINOPHILS % (AUTO) 2.8 % (0-6); HEMATOCRIT 33.4 % (35.0-45.0); LYMPHOCYTES # (AUTO) 0.8 X10'3 (1.1-4.8); LYMPHOCYTES % (AUTO) 19.4 % (21-51); MEAN CORPUSCULAR HEMOGLOBIN 28.1 PG (27.0-31.0); MEAN CORPUSCULAR HGB CONC 32.9 g/dL (33.0-36.5); MEAN CORPUSCULAR VOLUME 85.2 FL (78-98); MEAN PLATELET VOLUME 7.5 FL (7.4-10.4); MONOCYTES # (AUTO) 0.3 X10'3 (0-0.9); MONOCYTES % (AUTO) 6.9 % (2-12); NEUTROPHILS # (AUTO) 3.1 X10'3 (1.8-7.7); NEUTROPHILS % (AUTO) 70.5 % (42-75); PLATELET COUNT 200 X10'3 (140-440); RED BLOOD COUNT 3.92 X10'6 (4.20-5.60); RED CELL DISTRIBUTION WIDTH 18.3 % (11.5-14.5); WHITE BLOOD COUNT 4.3 X10'3 (4.5-11.0)
[2019-06-27 14:33] LABS: CLARITY,URINE CLEAR (Clear); COLOR,URINE YELLOW (Yellow); GLUCOSE, URINE NEGATIVE (Neg); KETONES,URINE NEGATIVE (Neg); LEUKOCYTE ESTERASE ,URINE NEGATIVE (Neg); NITRITES, URINE NEGATIVE (Neg); OCCULT BLOOD,URINE NEGATIVE (Neg); PROTEIN,URINE NEGATIVE (Neg)
[2019-06-27 14:35] LABS: UA COLLECTION TYPE STRAIGHT CATH
[2019-06-27 14:49] LABS: ALANINE AMINOTRANSFERASE 7 U/L (12-78); ALBUMIN 3.5 G/DL (3.4-5.0); ALBUMIN/GLOBULIN RATIO 0.9 (1.1-1.5); ALKALINE PHOSPHATASE 111 IU/L (46-116); AMYLASE 52 U/L (25-115); ANION GAP 7 (8-16); ASPARTATE AMINO TRANSFERASE 13 U/L (10-37); BILIRUBIN,TOTAL 0.6 MG/DL (0.1-1.0); BLOOD UREA NITROGEN 13 MG/DL (7-18); BUN/CREATININE RATIO 12.5 (6.6-38.0); CALCIUM 8.7 MG/DL (8.5-10.1); CHLORIDE 106 MMOL/L (99-107); CREATININE 1.04 MG/DL (0.40-0.90); GLUCOSE 97 MG/DL (70-104); LIPASE 73 U/L (73-393); POTASSIUM 4.8 MMOL/L (3.5-5.1); SODIUM 141 MMOL/L (135-145); TOTAL CARBON DIOXIDE 27.6 MMOL/L (24-32); TOTAL PROTEIN 7.4 G/DL (6.4-8.2); eGFR 52 ML/MIN
[2019-06-27 16:07] VITALS: BP 121/74
[2019-06-27] MEDS ORDERED: PRAM0.5T12 PO (16:15)
--- NOTE | 2019-06-27 16:19 | NUR ---
[facility] AN/SYQ 13 NAV/C2 OPERATOR CONTACTED. AN/SYQ 13 NAV/C2 OPERATOR AT PT'S BEDSIDE.
[2019-06-27] MEDS ORDERED: magnesium Cl slow-release 64mg tablet PO PRN (16:50)
[2019-06-27] MEDS ORDERED: magnesium 2GM in 50ml NS 50 ML IV PRN (16:50)
[2019-06-27] MEDS ORDERED: magnesium 4gm in 100ml NS 100 ML IV PRN (16:50)
[2019-06-27] MEDS ORDERED: potassium CL 10mEq/100ml bag 100 ML IV PRN ×2 (16:50)
[2019-06-27] MEDS ORDERED: ondansetron/PF 4mg/2ml inj IV PRN (16:50)
[2019-06-27] MEDS ORDERED: normal saline 1000ml 1,000 ML IV SCH (16:50)
[2019-06-27] MEDS ORDERED: potassium Cl 20 mEq SR tablet PO PRN ×2 (16:50)
--- NOTE | 2019-06-27 17:03 | NUR ---
in to speak with patient with social work therapist. patient lives alone but has ihss caregiver 45 hours per month. patient states that her caregiver, helio, would be wiling to increase his hours. social work therapist to request eval to increase hours. social work therapist called and spoke with bilingual social workerYovana, who has evaluated patient for program to increase in home suport. patient does not qualify for program due to lack of family and other natural resources required for program. dcp called and confirmed patient is open with [facility] patient does not like her current residence and wishes she had stayed at [facility]. informed patient ltc beds are not available at this time. patient is willing to return home. she is agreeable to increase hh services (pt and bilingual social worker) and ihss hours. patient has dme (wheelchair, hospital bed, and bsc). informed lost charge card clerk patient will need ambulance ride to return home as [facility] and [facility] do not services her home. asked patient to contact her caregiver Helio, to assist her with nighttime routine tonight when hop picker time arranged. patient stated that she will do so. informed and in agreement with d/c plan.
--- NOTE | 2019-06-27 17:17 | NUR ---
DR WARNER NOTIFIED THAT PER YOVANY WASH DRILLER; PT WILL NOT BE ADMITTED BUT IS WANTING TO GO HOME AT THIS TIME, AND THAT PT IS BEING DC BY ER PROVIDER. [facility] CALLED FOR TRANSPORT HOME AT SOCIAL SERVICE'S REQUEST DUE TO S[facility]I CARGO AND [facility] WILL NOT TRANSPORT TO THE [facility]. PT HAS CALLED A FRIEND TO MEET [facility] FOR ASSISTANCE AND TO RECEIVE PT PER CHRISTY PEDROZA
--- NOTE | 2019-06-27 18:40 | NUR ---
PT HAD CALL LIGHT ON. ENTERED ROOM AND PT STATES THAT SHE NEEDS TO USE THE RESTROOM. BEDSIDE COMMODE ALREADY IN ROOM. ASSISTED PT TO BEDSIDE COMMODE. SHE STATES "I TOOK ALL THAT STUFF OFF (MONITORS) BECAUSE I JUST GOT LEFT IN HERE AND NO ONE HAS DONE ANYTHING" - OPENED CHART AND LET PT KNOW THAT SHE HAS BEEN SEEN BY THE MD, WELL SEARCH ANALYST AND THAT SHE HAS HAD LABS AND URINE CHECKED WELL REC'D MEDICATION SINCE BEING IN THE ER. SHE THEN STATES "OK, WELL I GUESS YOU DID SOMETHING THEN" - ASSISTED PT BACK TO BED AND LET HER KNOW THAT SHE IS CURRENTLY WAITING TRANSPORT BACK TO [facility] WHERE HE FRIEND WILL MEET HER TO HELP HER INSIDE.
[2019-06-27] MEDS ORDERED: heparin, porcine 5000 units/ml vial SQ SCH (20:00)
[2019-06-27] MEDS ORDERED: K and/or MAG REPLACEMENT MC SCH (20:00)
== END 2019-06-27 19:17 | disposition home or self-care (01) ==
LOC: ER 13:49 → ED HOLD 16:50 → UNDOADMIN 16:50 → UNDODISIN 19:16
DX: R19.7 Diarrhea, unspecified (principal); G20 Parkinson's disease; F41.9 Anxiety disorder, unspecified; F12.90 Cannabis use, unspecified, uncomplicated; Z90.49 Acquired absence of other specified parts of digestive tract; Z98.51 Tubal ligation status; Z86.73 Personal history of transient ischemic attack (TIA), and cerebral infarction without residual deficits; Z60.2 Problems related to living alone; Z88.6 Allergy status to analgesic agent; Z88.5 Allergy status to narcotic agent; Z88.8 Allergy status to other drugs, medicaments and biological substances; Z79.899 Other long term (current) drug therapy
CPT/HCPCS: 36415; 80053; 81003; 82150; 83690; 85025; 87045; 87046; 99284; 99285; G0378

== ENCOUNTER 2019-07-02 20:03 | Inpatient (IN) | payer MEDICARE, MEDICAID ==
[~2019-07-02] VITALS: Ht 165.1 cm; Wt 74.0 kg
[~2019-07-02 20:03] MED LIST changes: +OMEP-297 PO; -OMEP20CA11 PO; -PHEN-888 PO; +PRAM0.5T12 PO; -QUET25TA34 PO; -TRAM50TA2 PO
[2019-07-02] MEDS ORDERED: carbidoba-levodopa 25-100mg tablet PO SCH (21:05)
--- NOTE | 2019-07-02 21:06 | NUR ---
CALLED FOR EKG
[2019-07-02 21:40] LABS: BASOPHILS # (AUTO) 0.1 X10'3 (0-0.2); BASOPHILS % (AUTO) 1.1 % (0-1); EOSINOPHILS # (AUTO) 0.2 X10'3 (0-0.9); EOSINOPHILS % (AUTO) 2.6 % (0-6); HEMATOCRIT 32.9 % (35.0-45.0); HEMOGLOBIN 11.1 g/dl (12.0-16.0); LYMPHOCYTES # (AUTO) 1.2 X10'3 (1.1-4.8); LYMPHOCYTES % (AUTO) 20.2 % (21-51); MEAN CORPUSCULAR HEMOGLOBIN 28.5 PG (27.0-31.0); MEAN CORPUSCULAR HGB CONC 33.8 g/dL (33.0-36.5); MEAN CORPUSCULAR VOLUME 84.1 FL (78-98); MEAN PLATELET VOLUME 7.3 FL (7.4-10.4); MONOCYTES # (AUTO) 0.4 X10'3 (0-0.9); MONOCYTES % (AUTO) 6.6 % (2-12); NEUTROPHILS % (AUTO) 69.5 % (42-75); PLATELET COUNT 220 X10'3 (140-440); RED BLOOD COUNT 3.91 X10'6 (4.20-5.60); RED CELL DISTRIBUTION WIDTH 18.2 % (11.5-14.5); WHITE BLOOD COUNT 5.7 X10'3 (4.5-11.0)
--- NOTE | 2019-07-02 21:40 | NUR ---
PT ASKING FOR THE URO WIK NOT WANTING TO HAVE CATH
[2019-07-02 21:52] LABS: ALANINE AMINOTRANSFERASE 14 U/L (12-78); ALBUMIN 3.4 G/DL (3.4-5.0); ALBUMIN/GLOBULIN RATIO 0.9 (1.1-1.5); ALKALINE PHOSPHATASE 107 IU/L (46-116); ANION GAP 9 (8-16); ASPARTATE AMINO TRANSFERASE 14 U/L (10-37); BILIRUBIN,TOTAL 0.4 MG/DL (0.1-1.0); BLOOD UREA NITROGEN 23 MG/DL (7-18); BUN/CREATININE RATIO 19.7 (6.6-38.0); CALCIUM 8.4 MG/DL (8.5-10.1); CHLORIDE 109 MMOL/L (99-107); CREATININE 1.17 MG/DL (0.40-0.90); GLUCOSE 91 MG/DL (70-104); MAGNESIUM 1.5 MG/DL (1.5-2.4); PHOSPHORUS 4.8 MG/DL (2.3-4.5); POTASSIUM 4.3 MMOL/L (3.5-5.1); SODIUM 142 MMOL/L (135-145); TOTAL CARBON DIOXIDE 23.7 MMOL/L (24-32); TOTAL PROTEIN 7.3 G/DL (6.4-8.2); eGFR 45 ML/MIN
--- NOTE | 2019-07-02 22:30 | NUR ---
pt refusing cath , occationally will have inappropiarte wording . pt has asked for something to wet her whistle and followed with " and not a sudha " told the patient that her wording was not appropirate and that if she doesnt want to be cathed thats one thing but to speak like that is inappropirate
[2019-07-03] MEDS ORDERED: mag hydrox/Alum hydrox/simeth 30ml oral suspension PO PRN
[2019-07-03] MEDS ORDERED: magnesium hydroxide 30ml (MOM) UD suspension PO PRN
[2019-07-03] MEDS ORDERED: acetaminophen 325mg tablet PO PRN
[2019-07-03] MEDS ORDERED: ondansetron/PF 4mg/2ml inj IV PRN
--- NOTE | 2019-07-03 00:53 | NUR ---
pt has a pair oy eye glassess/ dentures top & bottom . a set of keys aroun her neck/ top/ sweat shirt /pants/ slippers and a ring to the right hand ring finger
[2019-07-03 01:18] VITALS: BP 120/47
[2019-07-03 01:25] LABS: CLARITY,URINE CLOUDY (Clear); COLOR,URINE YELLOW (Yellow); GLUCOSE, URINE NEGATIVE (Neg); KETONES,URINE NEGATIVE (Neg); LEUKOCYTE ESTERASE ,URINE MODERATE (Neg); NITRITES, URINE NEGATIVE (Neg); OCCULT BLOOD,URINE SMALL (Neg); PH,URINE 5.5 (4.8-8.0); PROTEIN,URINE NEGATIVE (Neg)
[2019-07-03 01:28] LABS: UA COLLECTION TYPE CLN CATCH MIDSTREAM
[2019-07-03 01:29] LABS: BACTERIA,URINE FEW /HPF (Neg); RBC,URINE 0-2 /HPF (0-2); SQUAMOUS EPITHELIAL CELL,UR MODERATE /LPF (FEW)
--- NOTE | 2019-07-03 01:39 | NUR ---
REPORT REC'D FROM ZAYRA SHETTY IN ED. PT UP TO THE FLOOR AT 0115. SETTLED IN, VSS, PROVIDED MEAL, AND WARM BLANKET.
--- NOTE | 2019-07-03 06:20 | NUR ---
REPORT GIVEN TO ZAYRA MUNOZ.
[2019-07-03 07:24] LABS: BASOPHILS % (AUTO) 0.4 % (0-1); EOSINOPHILS # (AUTO) 0.1 X10'3 (0-0.9); EOSINOPHILS % (AUTO) 3.4 % (0-6); HEMATOCRIT 29.8 % (35.0-45.0); LYMPHOCYTES # (AUTO) 1.2 X10'3 (1.1-4.8); LYMPHOCYTES % (AUTO) 29.2 % (21-51); MEAN CORPUSCULAR HEMOGLOBIN 28.8 PG (27.0-31.0); MEAN CORPUSCULAR HGB CONC 33.7 g/dL (33.0-36.5); MEAN CORPUSCULAR VOLUME 85.4 FL (78-98); MEAN PLATELET VOLUME 7.6 FL (7.4-10.4); MONOCYTES # (AUTO) 0.3 X10'3 (0-0.9); MONOCYTES % (AUTO) 6.6 % (2-12); NEUTROPHILS # (AUTO) 2.4 X10'3 (1.8-7.7); NEUTROPHILS % (AUTO) 60.4 % (42-75); PLATELET COUNT 160 X10'3 (140-440); RED BLOOD COUNT 3.49 X10'6 (4.20-5.60); RED CELL DISTRIBUTION WIDTH 17.5 % (11.5-14.5)
[2019-07-03] MEDS ORDERED: pramipexole 0.25mg tablet PO SCH (08:00)
[2019-07-03] MEDS: heparin, porcine 5000 units/ml vial SQ SCH ×2 (08:02→20:00)
[2019-07-03] MEDS: pantoprazole 40mg Tablet.DR PO SCH (08:03)
--- NOTE | 2019-07-03 08:10 | NUR ---
Dr Ely at the bedside and assessing pt. Received new orders to obtain the pts home medication schedule and to follow that. Per pt, she does not take Mirapex or Comtan at home, ok w/ Dr Ely to discontinue those medications. Received new orders for Ativan prn. Will continue to monitor the pt closely.
[2019-07-03] MEDS: carbidoba-levodopa 25-100mg tablet PO SCH ×3 (08:44→20:12)
[2019-07-03] MEDS: LORazepam 0.5 MG tablet PO PRN ×2 (08:44→20:12)
[2019-07-03 10:21] LABS: ALANINE AMINOTRANSFERASE 14 U/L (12-78); ALBUMIN 3.3 G/DL (3.4-5.0); ALBUMIN/GLOBULIN RATIO 0.8 (1.1-1.5); ALKALINE PHOSPHATASE 102 IU/L (46-116); ANION GAP 7 (8-16); ASPARTATE AMINO TRANSFERASE 13 U/L (10-37); BILIRUBIN,TOTAL 0.5 MG/DL (0.1-1.0); BLOOD UREA NITROGEN 21 MG/DL (7-18); BUN/CREATININE RATIO 18.8 (6.6-38.0); CALCIUM 8.6 MG/DL (8.5-10.1); CHLORIDE 109 MMOL/L (99-107); CREATININE 1.12 MG/DL (0.40-0.90); GLUCOSE 94 MG/DL (70-104); POTASSIUM 4.4 MMOL/L (3.5-5.1); SODIUM 143 MMOL/L (135-145); TOTAL CARBON DIOXIDE 27.4 MMOL/L (24-32); TOTAL PROTEIN 7.2 G/DL (6.4-8.2); eGFR 48 ML/MIN
[2019-07-03 11:00] VITALS: BP 131/53
[2019-07-03] MEDS ORDERED: carbidoba-levodopa 25-100mg tablet PO SCH (12:00)
[2019-07-03 18:00] VITALS: BP 148/54
--- NOTE | 2019-07-03 19:31 | NUR ---
Patient in room ORTHO 4015. I have received report from ZAYRA Levine and had the opportunity to ask questions and assume patient care. Addendum: 07/03/19 at 1932 by Mona Bradley RN Amended: Links added.
[2019-07-03] MEDS: quetiapine 100mg tablet PO SCH (20:16)
[2019-07-03 22:00] VITALS: BP 126/43
[2019-07-04 06:00] VITALS: BP 140/64
[2019-07-04 06:10] LABS: BASOPHILS % (AUTO) 0.7 % (0-1); EOSINOPHILS # (AUTO) 0.2 X10'3 (0-0.9); EOSINOPHILS % (AUTO) 3.9 % (0-6); HEMATOCRIT 31.4 % (35.0-45.0); HEMOGLOBIN 10.6 g/dl (12.0-16.0); LYMPHOCYTES # (AUTO) 1.2 X10'3 (1.1-4.8); LYMPHOCYTES % (AUTO) 29.8 % (21-51); MEAN CORPUSCULAR HEMOGLOBIN 28.6 PG (27.0-31.0); MEAN CORPUSCULAR HGB CONC 33.9 g/dL (33.0-36.5); MEAN CORPUSCULAR VOLUME 84.5 FL (78-98); MEAN PLATELET VOLUME 7.4 FL (7.4-10.4); MONOCYTES # (AUTO) 0.3 X10'3 (0-0.9); NEUTROPHILS # (AUTO) 2.3 X10'3 (1.8-7.7); NEUTROPHILS % (AUTO) 58.6 % (42-75); PLATELET COUNT 181 X10'3 (140-440); RED BLOOD COUNT 3.71 X10'6 (4.20-5.60); RED CELL DISTRIBUTION WIDTH 18.3 % (11.5-14.5); WHITE BLOOD COUNT 3.9 X10'3 (4.5-11.0)
--- NOTE | 2019-07-04 06:10 | NUR ---
Problems reprioritized. Patient report given, questions answered & plan of care reviewed with ZAYRA Schwarz. Addendum: 07/04/19 at 0610 by Mona Bradley RN Amended: Links added.
[2019-07-04 06:26] LABS: ALANINE AMINOTRANSFERASE 8 U/L (12-78); ALBUMIN 3.1 G/DL (3.4-5.0); ALBUMIN/GLOBULIN RATIO 0.9 (1.1-1.5); ALKALINE PHOSPHATASE 98 IU/L (46-116); ANION GAP 4 (8-16); ASPARTATE AMINO TRANSFERASE 11 U/L (10-37); BILIRUBIN,TOTAL 0.5 MG/DL (0.1-1.0); BLOOD UREA NITROGEN 18 MG/DL (7-18); BUN/CREATININE RATIO 13.8 (6.6-38.0); CALCIUM 8.9 MG/DL (8.5-10.1); CHLORIDE 107 MMOL/L (99-107); GLUCOSE 97 MG/DL (70-104); POTASSIUM 4.4 MMOL/L (3.5-5.1); SODIUM 139 MMOL/L (135-145); TOTAL CARBON DIOXIDE 27.6 MMOL/L (24-32); TOTAL PROTEIN 6.7 G/DL (6.4-8.2); eGFR 40 ML/MIN
[2019-07-04] MEDS: pantoprazole 40mg Tablet.DR PO SCH (06:59)
[2019-07-04] MEDS: carbidoba-levodopa 25-100mg tablet PO SCH ×3 (06:59→21:05)
[2019-07-04] MEDS: heparin, porcine 5000 units/ml vial SQ SCH ×2 (07:02→20:00)
--- NOTE | 2019-07-04 07:06 | NUR ---
pt refused AM dose of SQ Heparin for VTE prophylaxis. Pt educated on the importance of taking it while she's in the hospital. States she won't be taking it at home and she doesn't want her body to get used to it. RN educated on med again and pt still refused.
[2019-07-04] MEDS: LORazepam 0.5 MG tablet PO PRN (08:08)
[2019-07-04 10:00] VITALS: BP 125/52
--- NOTE | 2019-07-04 13:56 | NUR ---
pt shaking alot from Parkinsons and very anxious and weak. Unable to walk independently when she was previously able to. Pt states she doesn't know why her meds aren't working. Dr. Ely pagechapo.
[2019-07-04 18:00] VITALS: BP 143/59
--- NOTE | 2019-07-04 19:12 | NUR ---
Patient in room ORTHO 4015. I have received report from ZAYRA Schwarz and had the opportunity to ask questions and assume patient care.
[2019-07-04] MEDS: quetiapine 100mg tablet PO SCH (21:00)
[2019-07-05] MEDS: LORazepam 0.5 MG tablet PO PRN ×2 (01:08→12:51)
--- NOTE | 2019-07-05 06:12 | NUR ---
Patient in room ORTHO 4015. I have received report from MAURICE IVERSON and had the opportunity to ask questions and assume patient care.
--- NOTE | 2019-07-05 06:18 | NUR ---
Problems reprioritized. Patient report given, questions answered & plan of care reviewed with ZAYRA Mancia.
[2019-07-05 06:26] VITALS: BP 125/62
[2019-07-05 06:38] LABS: BASOPHILS % (AUTO) 0.3 % (0-1); EOSINOPHILS # (AUTO) 0.2 X10'3 (0-0.9); EOSINOPHILS % (AUTO) 3.3 % (0-6); HEMATOCRIT 35.1 % (35.0-45.0); HEMOGLOBIN 11.9 g/dl (12.0-16.0); LYMPHOCYTES # (AUTO) 1.2 X10'3 (1.1-4.8); LYMPHOCYTES % (AUTO) 23.4 % (21-51); MEAN CORPUSCULAR HEMOGLOBIN 28.6 PG (27.0-31.0); MEAN CORPUSCULAR HGB CONC 33.8 g/dL (33.0-36.5); MEAN CORPUSCULAR VOLUME 84.5 FL (78-98); MEAN PLATELET VOLUME 7.5 FL (7.4-10.4); MONOCYTES # (AUTO) 0.4 X10'3 (0-0.9); MONOCYTES % (AUTO) 7.4 % (2-12); NEUTROPHILS # (AUTO) 3.3 X10'3 (1.8-7.7); NEUTROPHILS % (AUTO) 65.6 % (42-75); PLATELET COUNT 209 X10'3 (140-440); RED BLOOD COUNT 4.15 X10'6 (4.20-5.60); RED CELL DISTRIBUTION WIDTH 17.8 % (11.5-14.5)
[2019-07-05 06:53] LABS: ALANINE AMINOTRANSFERASE 8 U/L (12-78); ALBUMIN 3.5 G/DL (3.4-5.0); ALBUMIN/GLOBULIN RATIO 0.9 (1.1-1.5); ALKALINE PHOSPHATASE 102 IU/L (46-116); ANION GAP 5 (8-16); ASPARTATE AMINO TRANSFERASE 13 U/L (10-37); BILIRUBIN,TOTAL 0.6 MG/DL (0.1-1.0); BLOOD UREA NITROGEN 20 MG/DL (7-18); BUN/CREATININE RATIO 16.8 (6.6-38.0); CHLORIDE 105 MMOL/L (99-107); CREATININE 1.19 MG/DL (0.40-0.90); GLUCOSE 95 MG/DL (70-104); POTASSIUM 4.7 MMOL/L (3.5-5.1); SODIUM 139 MMOL/L (135-145); TOTAL CARBON DIOXIDE 29.3 MMOL/L (24-32); TOTAL PROTEIN 7.4 G/DL (6.4-8.2); eGFR 45 ML/MIN
[2019-07-05] MEDS: heparin, porcine 5000 units/ml vial SQ SCH ×2 (08:00→20:00)
[2019-07-05] MEDS: pantoprazole 40mg Tablet.DR PO SCH (08:19)
[2019-07-05] MEDS: carbidoba-levodopa 25-100mg tablet PO SCH ×3 (08:19→19:54)
[2019-07-05] MEDS: traMADol 50MG tablet PO PRN ×2 (11:04→19:53)
[2019-07-05 11:17] VITALS: BP 113/75
--- NOTE | 2019-07-05 15:24 | NUR ---
PATIENT NEEDS TO BE DISCHARGED IN THE AM. MEDS WILL BE DELIVERED TO HER HOME AFTER 1330. IF CAREGIVER IS UNABLE TO PROVIDE A RIDE HOME, CM NEEDS TO BE NOTIFIED EARLY TO SET UP A RIDE.
[2019-07-05 18:00] VITALS: BP 104/53
--- NOTE | 2019-07-05 18:20 | NUR ---
Problems reprioritized. Patient report given, questions answered & plan of care reviewed with JOSE IVERSON.
[2019-07-05] MEDS ORDERED: Lorazepam PO (20:03)
[2019-07-05] MEDS ORDERED: QUET100T33 PO (20:03)
[2019-07-05] MEDS: quetiapine 100mg tablet PO SCH (21:00)
[2019-07-05 22:00] VITALS: BP 103/33
[2019-07-06] MEDS: LORazepam 0.5 MG tablet PO PRN (01:06)
[2019-07-06] MEDS: traMADol 50MG tablet PO PRN (05:18)
[2019-07-06 06:00] VITALS: BP 119/45
--- NOTE | 2019-07-06 06:33 | NUR ---
Patient in room ORTHO 4015. I have received report from Talisha IVERSON and had the opportunity to ask questions and assume patient care.
[2019-07-06 06:41] LABS: BASOPHILS % (AUTO) 0.6 % (0-1); EOSINOPHILS # (AUTO) 0.2 X10'3 (0-0.9); HEMATOCRIT 34.1 % (35.0-45.0); HEMOGLOBIN 11.3 g/dl (12.0-16.0); LYMPHOCYTES # (AUTO) 1.4 X10'3 (1.1-4.8); LYMPHOCYTES % (AUTO) 30.7 % (21-51); MEAN CORPUSCULAR HEMOGLOBIN 28.3 PG (27.0-31.0); MEAN CORPUSCULAR HGB CONC 33.2 g/dL (33.0-36.5); MEAN CORPUSCULAR VOLUME 85.2 FL (78-98); MEAN PLATELET VOLUME 7.6 FL (7.4-10.4); MONOCYTES # (AUTO) 0.3 X10'3 (0-0.9); MONOCYTES % (AUTO) 7.3 % (2-12); NEUTROPHILS # (AUTO) 2.7 X10'3 (1.8-7.7); NEUTROPHILS % (AUTO) 57.4 % (42-75); PLATELET COUNT 190 X10'3 (140-440); RED CELL DISTRIBUTION WIDTH 18.5 % (11.5-14.5); WHITE BLOOD COUNT 4.7 X10'3 (4.5-11.0)
[2019-07-06 06:51] LABS: ALANINE AMINOTRANSFERASE 13 U/L (12-78); ALBUMIN 3.2 G/DL (3.4-5.0); ALBUMIN/GLOBULIN RATIO 0.9 (1.1-1.5); ALKALINE PHOSPHATASE 96 IU/L (46-116); ANION GAP 7 (8-16); ASPARTATE AMINO TRANSFERASE 17 U/L (10-37); BILIRUBIN,TOTAL 0.5 MG/DL (0.1-1.0); BLOOD UREA NITROGEN 27 MG/DL (7-18); BUN/CREATININE RATIO 22.7 (6.6-38.0); CALCIUM 8.8 MG/DL (8.5-10.1); CHLORIDE 104 MMOL/L (99-107); CREATININE 1.19 MG/DL (0.40-0.90); GLUCOSE 96 MG/DL (70-104); POTASSIUM 4.7 MMOL/L (3.5-5.1); SODIUM 137 MMOL/L (135-145); TOTAL CARBON DIOXIDE 26.4 MMOL/L (24-32); TOTAL PROTEIN 6.9 G/DL (6.4-8.2); eGFR 45 ML/MIN
[2019-07-06] MEDS: pantoprazole 40mg Tablet.DR PO SCH (07:45)
[2019-07-06] MEDS: carbidoba-levodopa 25-100mg tablet PO SCH (07:45)
[2019-07-06] MEDS: heparin, porcine 5000 units/ml vial SQ SCH (07:45)
--- NOTE | 2019-07-06 08:12 | NUR ---
PAGER ID: [phone] MESSAGE: RE: [id number] Nisreen Sarmiento. Discharge orders in, Is plan still to DC this AM? I will attempt to call caregiver if so. Thanks VERITO [phone]
[2019-07-06 10:00] VITALS: BP 91/51
--- NOTE | 2019-07-06 11:51 | NUR ---
Patient stable for discharge home today. Prescriptions being delivered to [facility] where the patient resides. All DC instructions given to patient. Wrapping Machine Helper Helio Bird was meeting patient at her residence at 1100
== END 2019-07-06 10:50 | disposition home health service (06) | DRG 57 ==
LOC: ER 20:04 → ED HOLD 07-03 00:09 → EDBEDREQ 07-03 00:25 → ORTHO 4S 07-03 01:30
PROVIDERS: ADMIT Internal Medicine; ATTEND Family Medicine
DX: G20 Parkinson's disease (principal); I69.354 Hemiplegia and hemiparesis following cerebral infarction affecting left non-dominant side; F41.9 Anxiety disorder, unspecified; F44.81 Dissociative identity disorder; Z60.2 Problems related to living alone; D64.9 Anemia, unspecified; M17.0 Bilateral primary osteoarthritis of knee; N18.3 Chronic kidney disease, stage 3 (moderate); Z62.810 Personal history of physical and sexual abuse in childhood; F12.90 Cannabis use, unspecified, uncomplicated; Z87.11 Personal history of peptic ulcer disease; Z91.81 History of falling; Z90.49 Acquired absence of other specified parts of digestive tract; Z88.5 Allergy status to narcotic agent; Z98.51 Tubal ligation status
CPT/HCPCS: 36415; 71045; 80053; 81001; 83735; 84100; 84484; 85025; 87081; 87088; 92508; 92616; 93005; 97112; 97116; 97161; 97530; 99285; G0378; J1644

== ENCOUNTER 2019-07-24 10:30 | Emergency (ER) | payer MEDICARE, MEDICAID ==
[~2019-07-24] VITALS: Ht 162.6 cm; Wt 60.0 kg
[~2019-07-24 10:30] MED LIST changes: +Lorazepam PO; +QUET100T33 PO
[2019-07-24 11:12] VITALS: BP 152/129
[2019-07-24 12:34] LABS: URINE AMPHETAMINE SCREEN NEGATIVE (Neg); URINE BARBITUATE SCREEN NEGATIVE (Neg); URINE BENZODIAZEPINES SCREEN NEGATIVE (Neg); URINE CANNABINOID SCREEN NEGATIVE (Neg); URINE COCAINE SCREEN NEGATIVE (Neg); URINE METHADONE SCREEN NEGATIVE (Neg); URINE OPIATE SCREEN NEGATIVE (Neg); URINE PHENCYCLIDINE SCREEN NEGATIVE (Neg)
== END 2019-07-24 13:37 | disposition home or self-care (01) ==
LOC: ER 10:32
DX: F60.89 Other specific personality disorders (principal); G20 Parkinson's disease; M19.90 Unspecified osteoarthritis, unspecified site; F41.9 Anxiety disorder, unspecified; F12.90 Cannabis use, unspecified, uncomplicated; Z86.73 Personal history of transient ischemic attack (TIA), and cerebral infarction without residual deficits; Z90.49 Acquired absence of other specified parts of digestive tract; Z88.6 Allergy status to analgesic agent; Z88.8 Allergy status to other drugs, medicaments and biological substances; Z88.5 Allergy status to narcotic agent; Z79.899 Other long term (current) drug therapy
CPT/HCPCS: 80305; 99283

== ENCOUNTER 2019-08-25 14:00 | Emergency (ER) | payer MEDICARE, MEDICAID ==
[~2019-08-25] VITALS: Ht 165.1 cm; Wt 75.5 kg
[~2019-08-25 14:00] MED LIST changes: -OMEP-297 PO; +OMEP20CA15 PO
[2019-08-25] MEDS ORDERED: LORazepam 1 MG tablet PO ONE (15:20)
[2019-08-25] MEDS ORDERED: LORazepam 0.5 MG tablet PO ONE (15:20)
[2019-08-25 17:08] VITALS: BP 139/68
== END 2019-08-25 17:10 | disposition home or self-care (01) ==
LOC: ER 14:01
DX: F41.1 Generalized anxiety disorder (principal); G20 Parkinson's disease; M19.90 Unspecified osteoarthritis, unspecified site; M81.0 Age-related osteoporosis without current pathological fracture; F12.90 Cannabis use, unspecified, uncomplicated; Z86.73 Personal history of transient ischemic attack (TIA), and cerebral infarction without residual deficits; Z98.51 Tubal ligation status; Z98.890 Other specified postprocedural states; Z60.2 Problems related to living alone; Z88.6 Allergy status to analgesic agent; Z88.5 Allergy status to narcotic agent; Z79.899 Other long term (current) drug therapy
CPT/HCPCS: 99284

== ENCOUNTER 2019-09-08 17:28 | Emergency (ER) | payer MEDICARE, MEDICAID ==
[~2019-09-08] VITALS: Ht 165.1 cm; Wt 75.0 kg
[2019-09-08] MEDS ORDERED: LORazepam 0.5 MG tablet PO ONE (17:50)
[2019-09-08 18:15] VITALS: BP 143/80
[2019-09-08 18:28] LABS: BASOPHILS % (AUTO) 0.4 % (0-1); EOSINOPHILS # (AUTO) 0.1 X10'3 (0-0.9); EOSINOPHILS % (AUTO) 2.6 % (0-6); HEMATOCRIT 38.3 % (35.0-45.0); HEMOGLOBIN 12.8 g/dl (12.0-16.0); LYMPHOCYTES # (AUTO) 1.4 X10'3 (1.1-4.8); LYMPHOCYTES % (AUTO) 28.9 % (21-51); MEAN CORPUSCULAR HEMOGLOBIN 29.2 PG (27.0-31.0); MEAN CORPUSCULAR HGB CONC 33.5 g/dL (33.0-36.5); MEAN CORPUSCULAR VOLUME 87.2 FL (78-98); MEAN PLATELET VOLUME 7.3 FL (7.4-10.4); MONOCYTES # (AUTO) 0.3 X10'3 (0-0.9); MONOCYTES % (AUTO) 6.3 % (2-12); NEUTROPHILS % (AUTO) 61.8 % (42-75); PLATELET COUNT 232 X10'3 (140-440); RED BLOOD COUNT 4.39 X10'6 (4.20-5.60); RED CELL DISTRIBUTION WIDTH 17.2 % (11.5-14.5); WHITE BLOOD COUNT 4.8 X10'3 (4.5-11.0)
[2019-09-08 18:36] LABS: ALANINE AMINOTRANSFERASE 6 U/L (12-78); ALBUMIN 3.6 G/DL (3.4-5.0); ALBUMIN/GLOBULIN RATIO 0.8 (1.1-1.5); ALKALINE PHOSPHATASE 130 IU/L (46-116); ANION GAP 10 (8-16); ASPARTATE AMINO TRANSFERASE 18 U/L (10-37); BILIRUBIN,TOTAL 0.8 MG/DL (0.1-1.0); BLOOD UREA NITROGEN 27 MG/DL (7-18); BUN/CREATININE RATIO 23.5 (6.6-38.0); CALCIUM 9.3 MG/DL (8.5-10.1); CHLORIDE 107 MMOL/L (99-107); CREATININE 1.15 MG/DL (0.40-0.90); GLUCOSE 85 MG/DL (70-104); MAGNESIUM 1.7 MG/DL (1.5-2.4); POTASSIUM 4.3 MMOL/L (3.5-5.1); SODIUM 144 MMOL/L (135-145); TOTAL CARBON DIOXIDE 26.9 MMOL/L (24-32); TOTAL PROTEIN 8.2 G/DL (6.4-8.2); eGFR 46 ML/MIN
--- NOTE | 2019-09-08 19:45 | NUR ---
CALLED BRYANT GARCIA FOR RIDE HOME AT 1944. ETA 20 MINS
== END 2019-09-08 19:57 | disposition home or self-care (01) ==
LOC: ER 17:29
DX: F41.9 Anxiety disorder, unspecified (principal); R51 Headache; M19.90 Unspecified osteoarthritis, unspecified site; F12.90 Cannabis use, unspecified, uncomplicated; Z86.73 Personal history of transient ischemic attack (TIA), and cerebral infarction without residual deficits; Z98.51 Tubal ligation status; Z90.49 Acquired absence of other specified parts of digestive tract; Z88.6 Allergy status to analgesic agent; Z88.5 Allergy status to narcotic agent; Z79.899 Other long term (current) drug therapy
CPT/HCPCS: 36415; 71045; 80053; 83735; 84484; 85025; 93005; 99285

== ENCOUNTER 2019-09-17 16:32 | Observation (INO) | payer MEDICARE, MEDICAID ==
[~2019-09-17] VITALS: Ht 165.1 cm; Wt 75.0 kg
[2019-09-17] MEDS ORDERED: normal saline 1000ML IV soln IVB ONE (17:05)
[2019-09-17 17:13] LABS: CLARITY,URINE CLEAR (Clear); COLOR,URINE STRAW (Yellow); GLUCOSE, URINE NEGATIVE (Neg); KETONES,URINE NEGATIVE (Neg); LEUKOCYTE ESTERASE ,URINE NEGATIVE (Neg); NITRITES, URINE NEGATIVE (Neg); OCCULT BLOOD,URINE NEGATIVE (Neg); PH,URINE 5.5 (4.8-8.0); PROTEIN,URINE NEGATIVE (Neg); UA COLLECTION TYPE STRAIGHT CATH
[2019-09-17 17:53] LABS: BASOPHILS % (AUTO) 0.9 % (0-1); EOSINOPHILS # (AUTO) 0.1 X10'3 (0-0.9); EOSINOPHILS % (AUTO) 1.8 % (0-6); HEMATOCRIT 35.3 % (35.0-45.0); HEMOGLOBIN 12.1 g/dl (12.0-16.0); LYMPHOCYTES # (AUTO) 1.2 X10'3 (1.1-4.8); LYMPHOCYTES % (AUTO) 22.9 % (21-51); MEAN CORPUSCULAR HGB CONC 34.2 g/dL (33.0-36.5); MEAN CORPUSCULAR VOLUME 87.7 FL (78-98); MEAN PLATELET VOLUME 7.5 FL (7.4-10.4); MONOCYTES # (AUTO) 0.2 X10'3 (0-0.9); MONOCYTES % (AUTO) 4.8 % (2-12); NEUTROPHILS # (AUTO) 3.6 X10'3 (1.8-7.7); NEUTROPHILS % (AUTO) 69.6 % (42-75); PLATELET COUNT 197 X10'3 (140-440); RED BLOOD COUNT 4.02 X10'6 (4.20-5.60); RED CELL DISTRIBUTION WIDTH 16.1 % (11.5-14.5); WHITE BLOOD COUNT 5.2 X10'3 (4.5-11.0)
[2019-09-17 18:07] LABS: ALANINE AMINOTRANSFERASE 23 U/L (12-78); ALBUMIN 3.2 G/DL (3.4-5.0); ALBUMIN/GLOBULIN RATIO 0.8 (1.1-1.5); ALKALINE PHOSPHATASE 127 IU/L (46-116); ANION GAP 9 (8-16); ASPARTATE AMINO TRANSFERASE 51 U/L (10-37); BILIRUBIN,TOTAL 0.6 MG/DL (0.1-1.0); BLOOD UREA NITROGEN 20 MG/DL (7-18); BUN/CREATININE RATIO 18.9 (6.6-38.0); CALCIUM 8.8 MG/DL (8.5-10.1); CHLORIDE 109 MMOL/L (99-107); CREATININE 1.06 MG/DL (0.40-0.90); GLUCOSE 88 MG/DL (70-104); LIPASE 118 U/L (73-393); POTASSIUM 4.1 MMOL/L (3.5-5.1); SODIUM 143 MMOL/L (135-145); TOTAL CARBON DIOXIDE 25.4 MMOL/L (24-32); TOTAL PROTEIN 7.4 G/DL (6.4-8.2); eGFR 51 ML/MIN
[2019-09-17] MEDS ORDERED: ERGO500054 PO (20:00)
[2019-09-17] MEDS ORDERED: magnesium hydroxide 30ml (MOM) UD suspension PO PRN (20:30)
[2019-09-17] MEDS ORDERED: mag hydrox/Alum hydrox/simeth 30ml oral suspension PO PRN (20:30)
[2019-09-17] MEDS ORDERED: ondansetron/PF 4mg/2ml inj IV PRN (20:30)
[2019-09-17] MEDS ORDERED: QUET25TA34 PO (20:51)
[2019-09-17] MEDS: LORazepam 0.5 MG tablet PO PRN (22:23)
[2019-09-17] MEDS: normal saline 1000ml 1,000 ML IV SCH (22:24)
[2019-09-17 22:33] VITALS: BP 136/60
[2019-09-18 00:56] VITALS: BP 110/66
[2019-09-18 06:08] LABS: BASOPHILS % (AUTO) 0.4 % (0-1); EOSINOPHILS # (AUTO) 0.1 X10'3 (0-0.9); EOSINOPHILS % (AUTO) 2.1 % (0-6); HEMATOCRIT 32.5 % (35.0-45.0); HEMOGLOBIN 11.1 g/dl (12.0-16.0); LYMPHOCYTES # (AUTO) 1.6 X10'3 (1.1-4.8); LYMPHOCYTES % (AUTO) 30.3 % (21-51); MEAN CORPUSCULAR HEMOGLOBIN 29.8 PG (27.0-31.0); MEAN CORPUSCULAR HGB CONC 34.1 g/dL (33.0-36.5); MEAN CORPUSCULAR VOLUME 87.4 FL (78-98); MEAN PLATELET VOLUME 7.7 FL (7.4-10.4); MONOCYTES # (AUTO) 0.3 X10'3 (0-0.9); MONOCYTES % (AUTO) 6.4 % (2-12); NEUTROPHILS # (AUTO) 3.2 X10'3 (1.8-7.7); NEUTROPHILS % (AUTO) 60.8 % (42-75); PLATELET COUNT 186 X10'3 (140-440); RED BLOOD COUNT 3.72 X10'6 (4.20-5.60); RED CELL DISTRIBUTION WIDTH 16.4 % (11.5-14.5); WHITE BLOOD COUNT 5.2 X10'3 (4.5-11.0)
[2019-09-18 06:14] LABS: ALANINE AMINOTRANSFERASE 22 U/L (12-78); ALBUMIN 2.9 G/DL (3.4-5.0); ALBUMIN/GLOBULIN RATIO 0.8 (1.1-1.5); ALKALINE PHOSPHATASE 114 IU/L (46-116); ANION GAP 6 (8-16); ASPARTATE AMINO TRANSFERASE 45 U/L (10-37); BILIRUBIN,TOTAL 0.6 MG/DL (0.1-1.0); BLOOD UREA NITROGEN 20 MG/DL (7-18); BUN/CREATININE RATIO 19.2 (6.6-38.0); CALCIUM 8.6 MG/DL (8.5-10.1); CHLORIDE 110 MMOL/L (99-107); CREATININE 1.04 MG/DL (0.40-0.90); GLUCOSE 84 MG/DL (70-104); MAGNESIUM 1.6 MG/DL (1.5-2.4); PHOSPHORUS 3.1 MG/DL (2.3-4.5); POTASSIUM 4.6 MMOL/L (3.5-5.1); SODIUM 144 MMOL/L (135-145); TOTAL CARBON DIOXIDE 28.5 MMOL/L (24-32); TOTAL PROTEIN 6.7 G/DL (6.4-8.2); eGFR 52 ML/MIN
--- NOTE | 2019-09-18 06:21 | NUR ---
Problems reprioritized. Patient report given, questions answered & plan of care reviewed with ZAYRA SINGH. Addendum: 09/18/19 at 0621 by Mona Bradley RN Amended: Links added.
--- NOTE | 2019-09-18 07:27 | NUR ---
Patient in room NAIN 355. I have received report from Mona IVERSON and had the opportunity to ask questions and assume patient care.
[2019-09-18] MEDS ORDERED: docusate sod 100mg capsule PO SCH (08:00)
[2019-09-18] MEDS ORDERED: enoxaparin 40mg/0.4ml syringe SQ SCH (08:00)
[2019-09-18 08:08] VITALS: BP 147/73
[2019-09-18] MEDS ORDERED: pantoprazole 40mg Tablet.DR PO SCH (08:30)
[2019-09-18] MEDS: carbidoba-levodopa 25-100mg tablet PO SCH ×2 (08:33→14:36)
--- NOTE | 2019-09-18 09:41 | NUR ---
MOM not given.
[2019-09-18] MEDS: LORazepam 0.5 MG tablet PO PRN ×2 (09:44→17:20)
--- NOTE | 2019-09-18 09:45 | NUR ---
Ativan given for Parkinsons shaking.
[2019-09-18] MEDS: normal saline 1000ml 1,000 ML IV SCH (09:51)
[2019-09-18 10:50] VITALS: BP 111/54
--- NOTE | 2019-09-18 14:14 | NUR ---
Patient walking the unit with the FWW with gait belt. Tolerating well. Patient states when nursing staff walked in the room "did you hear what I did? I walked to the restroom and went to the bathroom." Patient walked 3 laps around the unit, 900 ft.
--- NOTE | 2019-09-18 14:46 | NUR ---
PAGER ID: [phone] MESSAGE: [phone] Greg In my professional opinion I do not feel this patient needs a sitter and would be fine with a bed alarm. Can I DC the sitter. Twila [phone]
--- NOTE | 2019-09-18 16:30 | NUR ---
Malnutrition Consult "lost over 10 pounds": Pt admit w/ increased weakness hx Parkinson's, FTT, and abdominal pain per EMR. Pt PO 25% breakfast and improved to 100% lunch today so far decent PO given pt wt/age. At this time pt has mild weakness, no scaled wt change since prior admit June 2019, and no edema/wounds. Pt also has no visible signs of muscle/fat wasting at this time during RD visit. Pt does not meet minimum malnutrition criteria. LBM 09/10 w/ small liquid BM today receiving colace; CT was negative for any findings per MD note. Will continue to monitor for additional protein needs. Rec: 1. continue regular diet 2. monitor for ONS needs 3. routine bowel care 4. wt per rx Addendum: 09/18/19 at [address] Amended: Links added.
--- NOTE | 2019-09-18 17:40 | NUR ---
Patient discharged home, ride provided by [facility]. Patient refused cane, said it will not work. Patient has belongings and all paperwork in hand. VS stable, A&Ox4. WC to the lobby by staff. Patient happy to go home to her beads.
[2019-09-19] MEDS ORDERED: QUET25TA34 PO (13:24)
[2019-09-19] MEDS ORDERED: PRAM0.5T12 PO (13:24)
[2019-09-19] MEDS ORDERED: ERGO500054 PO (13:24)
[2019-09-19] MEDS ORDERED: LORA-268 PO (13:24)
== END 2019-09-18 17:27 | disposition home or self-care (01) ==
LOC: ER 16:33 → ED HOLD 20:45 → SUR 3N 22:00
PROVIDERS: ADMIT Family Medicine; ATTEND Internal Medicine
DX: G20 Parkinson's disease (principal); R62.7 Adult failure to thrive; I25.10 Atherosclerotic heart disease of native coronary artery without angina pectoris; K21.9 Gastro-esophageal reflux disease without esophagitis; M19.90 Unspecified osteoarthritis, unspecified site; M81.0 Age-related osteoporosis without current pathological fracture; F41.9 Anxiety disorder, unspecified; N18.9 Chronic kidney disease, unspecified; F12.90 Cannabis use, unspecified, uncomplicated; Z86.73 Personal history of transient ischemic attack (TIA), and cerebral infarction without residual deficits; Z79.899 Other long term (current) drug therapy; Z88.5 Allergy status to narcotic agent; Z88.6 Allergy status to analgesic agent; Z88.8 Allergy status to other drugs, medicaments and biological substances
CPT/HCPCS: 36415; 71045; 74176; 80053; 81003; 83690; 83735; 84100; 85025; 87081; 96372; 97116; 97161; 97530; 99284; G0378; J7030; J1650

== ENCOUNTER 2019-09-19 06:49 | Emergency (ER) | payer MEDICARE, MEDICAID ==
[~2019-09-19] VITALS: Ht 165.1 cm; Wt 68.2 kg
[~2019-09-19 06:49] MED LIST changes: -PRAM0.5T12 PO; -QUET100T33 PO
[2019-09-19] MEDS ORDERED: ketorolac trometh. 30mg/ml inj. IV ONE (08:35)
[2019-09-19] MEDS ORDERED: LORazepam 0.5 MG tablet PO PRN (08:45)
--- NOTE | 2019-09-19 10:00 | NUR ---
PT CHANGED AND BATHE. LARGE VOID X2. SOAKED THRU BRIEF. PT ABLE TO STAND AT BEDSIDE HOLDING ONTO WALKER WITH ASST.
--- NOTE | 2019-09-19 11:51 | NUR ---
ZACKARY SINGLETON MGR CALLED. [facility] HAS ACCEPTED PT GARMENT SORTER. SHE IS REQUESTING MED REC TO BE DONE
[2019-09-19 11:59] VITALS: BP 142/63
--- NOTE | 2019-09-19 11:59 | NUR ---
Patient has been accepted by [facility] for LTC. Notified Vanessa IVERSON. RN will reconcile medications inchart so TMS can be completed for orders. Awaiting call back from RN once completed. Notified Malvin from [facility].
--- NOTE | 2019-09-19 12:18 | NUR ---
ZACKARY, CHAINSTITCH SEAT JOINER WOULD LIKE TO BE NOTIFIED WHEN DR. LORD HAS SIGNED MED REC.
[2019-09-19] MEDS ORDERED: LORA-268 PO (13:24)
[2019-09-19] MEDS ORDERED: PRAM0.5T12 PO (13:24)
[2019-09-19] MEDS ORDERED: QUET25TA34 PO (13:24)
[2019-09-19] MEDS ORDERED: ERGO500054 PO (13:24)
--- NOTE | 2019-09-19 13:43 | NUR ---
med rec completed and given to edilma weldon mgr. will let us know when draft roller picker time is scheduled.
--- NOTE | 2019-09-19 14:07 | NUR ---
report given to ZAYRA Castellano at [facility] facility. call from social sciences professor stating Megan Cargo will be here to pick her up at 1500.
--- NOTE | 2019-09-19 14:09 | NUR ---
IN TO SPEAK WITH PATIENT AT 1230. SHE IS AGREEABLE WITH TRANSFER TO [facility] FOR LTC. NOTIFIED PATIENT THAT SHE WILL TRASNPORT VIA WHEELCHAIR WITH SONALI CARGO STAIGHT TO FACILITY. PATIENT VERBALIZED UNDERSTANDING AND IS IN AGREEMENT WITH D/C PLAN.
--- NOTE | 2019-09-19 14:10 | NUR ---
ORDERS COMPLETED AND SIGNED BY DR LORD. FAXED TO [facility]. NOTIFIED JEWELS AT [facility] AND BRIANNA ARRANGED WITH [address] LIGHT CLEANER TIME. NOTIFIED RO IVERSON.
== END 2019-09-19 15:59 | disposition home or self-care (01) ==
LOC: ER 06:50
DX: F41.9 Anxiety disorder, unspecified (principal); G20 Parkinson's disease; F12.90 Cannabis use, unspecified, uncomplicated; Z90.49 Acquired absence of other specified parts of digestive tract; Z79.82 Long term (current) use of aspirin; Z86.73 Personal history of transient ischemic attack (TIA), and cerebral infarction without residual deficits; Z88.6 Allergy status to analgesic agent; Z88.5 Allergy status to narcotic agent; Z79.899 Other long term (current) drug therapy
CPT/HCPCS: 99283

== ENCOUNTER 2020-01-12 13:06 | Emergency (ER) | payer MEDICARE, MEDICAID ==
[~2020-01-12] VITALS: Ht 165.1 cm; Wt 72.3 kg
[~2020-01-12 13:06] MED LIST changes: +ERGO500054 PO; +LORA-268 PO; -Lorazepam PO; +PRAM0.5T12 PO; +QUET25TA34 PO
--- NOTE | 2020-01-12 14:19 | NUR ---
PT WAITING ON SOCIAL SERVICE CONSULT
[2020-01-12] MEDS ORDERED: LORazepam 1 MG tablet PO ONE (14:25)
[2020-01-12] MEDS ORDERED: pramipexole 0.25mg tablet PO ONE (14:25)
[2020-01-12] MEDS ORDERED: carbidopa/levodopa 10/100mg tab PO ONE (14:25)
[2020-01-12 15:29] VITALS: BP 158/56
== END 2020-01-12 15:32 | disposition home or self-care (01) ==
LOC: ER 13:07
DX: F41.9 Anxiety disorder, unspecified (principal); G20 Parkinson's disease; M19.90 Unspecified osteoarthritis, unspecified site; M81.0 Age-related osteoporosis without current pathological fracture; F12.90 Cannabis use, unspecified, uncomplicated; Z86.73 Personal history of transient ischemic attack (TIA), and cerebral infarction without residual deficits; Z90.49 Acquired absence of other specified parts of digestive tract; Z60.2 Problems related to living alone; Z88.6 Allergy status to analgesic agent; Z88.5 Allergy status to narcotic agent; Z88.8 Allergy status to other drugs, medicaments and biological substances; Z79.899 Other long term (current) drug therapy
CPT/HCPCS: 99284

== ENCOUNTER 2020-03-22 16:58 | Emergency (ER) | payer MEDICARE, MEDICAID ==
[~2020-03-22] VITALS: Ht 165.1 cm; Wt 64.1 kg
--- NOTE | 2020-03-22 18:00 | NUR ---
REMOVED CLOTHING AND DRESSED IN GREEN SCRUBS, REFUSED TO REMOVE EARRINGS AND RING. WILL ATTEMP AGAIN LATER.
--- NOTE | 2020-03-22 19:33 | NUR ---
PT GIVEN SANDWICH AND CRANBERRY JUICE UPON REQUEST. NO OTHER NEEDS AT THIS TIME
[2020-03-22 19:36] LABS: BASOPHILS % (AUTO) 0.3 % (0-1); EOSINOPHILS # (AUTO) 0.2 X10'3 (0-0.9); EOSINOPHILS % (AUTO) 3.9 % (0-6); HEMATOCRIT 33.2 % (35.0-45.0); LYMPHOCYTES % (AUTO) 20.1 % (21-51); MEAN CORPUSCULAR HEMOGLOBIN 30.5 PG (27.0-31.0); MEAN CORPUSCULAR HGB CONC 33.2 g/dL (33.0-36.5); MEAN CORPUSCULAR VOLUME 91.8 FL (78-98); MEAN PLATELET VOLUME 7.2 FL (7.4-10.4); MONOCYTES # (AUTO) 0.3 X10'3 (0-0.9); MONOCYTES % (AUTO) 5.5 % (2-12); NEUTROPHILS # (AUTO) 3.6 X10'3 (1.8-7.7); NEUTROPHILS % (AUTO) 70.2 % (42-75); PLATELET COUNT 214 X10'3 (140-440); RED BLOOD COUNT 3.62 X10'6 (4.20-5.60); RED CELL DISTRIBUTION WIDTH 16.2 % (11.5-14.5); WHITE BLOOD COUNT 5.2 X10'3 (4.5-11.0)
[2020-03-22 19:42] LABS: ALANINE AMINOTRANSFERASE 6 U/L (12-78); ALBUMIN 3.2 G/DL (3.4-5.0); ALBUMIN/GLOBULIN RATIO 0.8 (1.1-1.5); ALKALINE PHOSPHATASE 107 IU/L (46-116); ANION GAP 11 (8-16); ASPARTATE AMINO TRANSFERASE 15 U/L (10-37); BILIRUBIN,TOTAL 0.5 MG/DL (0.1-1.0); BLOOD UREA NITROGEN 22 MG/DL (7-18); BUN/CREATININE RATIO 19.1 (6.6-38.0); CALCIUM 8.2 MG/DL (8.5-10.1); CHLORIDE 109 MMOL/L (99-107); CREATININE 1.15 MG/DL (0.40-0.90); GLUCOSE 87 MG/DL (70-104); POTASSIUM 3.6 MMOL/L (3.5-5.1); SODIUM 146 MMOL/L (135-145); TOTAL PROTEIN 7.1 G/DL (6.4-8.2); eGFR 46 ML/MIN
[2020-03-22 19:52] LABS: ACETAMINOPHEN < 2.0 UG/ML (10-30); ETHANOL < 0.010 GM/DL (0.0-0.010)
[2020-03-22 19:56] LABS: URINE AMPHETAMINE SCREEN NEGATIVE (Neg); URINE BARBITUATE SCREEN NEGATIVE (Neg); URINE BENZODIAZEPINES SCREEN NEGATIVE (Neg); URINE CANNABINOID SCREEN NEGATIVE (Neg); URINE COCAINE SCREEN NEGATIVE (Neg); URINE METHADONE SCREEN NEGATIVE (Neg); URINE OPIATE SCREEN NEGATIVE (Neg); URINE PHENCYCLIDINE SCREEN NEGATIVE (Neg)
[2020-03-22 20:03] LABS: COLOR,URINE YELLOW (Yellow); GLUCOSE, URINE NEGATIVE (Neg); KETONES,URINE NEGATIVE (Neg); LEUKOCYTE ESTERASE ,URINE SMALL (Neg); NITRITES, URINE NEGATIVE (Neg); OCCULT BLOOD,URINE NEGATIVE (Neg); PROTEIN,URINE NEGATIVE (Neg)
[2020-03-22 20:18] LABS: CLARITY,URINE SLIGHTLY CLOUDY (Clear); UA COLLECTION TYPE CLN CATCH MIDSTREAM
[2020-03-22 20:19] LABS: BACTERIA,URINE FEW /HPF (Neg); RBC,URINE 0-2 /HPF (0-2); SQUAMOUS EPITHELIAL CELL,UR FEW /LPF (FEW); WBC CLUMPS,URINE FEW /HPF (NEGATIVE); WBC,URINE 20-30 /HPF (0-4)
--- NOTE | 2020-03-22 20:33 | NUR ---
REPORT GIVEN TO NICKY IVERSON, PT MOVED TO OF26
--- NOTE | 2020-03-22 20:39 | NUR ---
pt arrived to bed 26 from ED 15
[2020-03-22] MEDS ORDERED: LORazepam 0.5 MG tablet PO PRN (20:55)
[2020-03-22] MEDS ORDERED: ergocalciferol (vit D) capsule 1,250 MCG (50,000 UNITS) CAPSULE PO SCH (20:55)
[2020-03-22] MEDS ORDERED: PRAMIPEXOLE DI HCL PO SCH (21:00)
--- NOTE | 2020-03-22 21:23 | NUR ---
breaking primary RN- will cont to monitor
[2020-03-22] MEDS: QUEtiapine 25mg tablet PO SCH (21:27)
[2020-03-22] MEDS: carbidoba-levodopa 25-100mg tablet PO SCH (21:27)
--- NOTE | 2020-03-22 21:27 | NUR ---
PACKET HAS BEEN SENT
--- NOTE | 2020-03-22 21:57 | NUR ---
pt resting comfortably sleeping
--- NOTE | 2020-03-23 06:18 | NUR ---
Patient sleeping supine. No distress observed. Continue to monitor.
--- NOTE | 2020-03-23 06:49 | NUR ---
Patient awake. RN went to speak to patient. Patient said she is not ready to get up and use the BR. Patient said she wants to sleep some more. No distress observed. Continue to monitor.
[2020-03-23] MEDS: pramipexole 0.25mg tablet PO SCH ×3 (08:00→13:00)
--- NOTE | 2020-03-23 08:10 | NUR ---
Patient full assist to the BR with 2 person assist. Patient is unsteady on her feet. Patient is continent. Patient tearful and states she doesn't want to live because she needs too much help and she used to be independent. Patient is having muscle spasms in her hip which she needs to stand up. Then patient feels dizzy and needs assistance. Patient is able to ask for assistance. Continue to monitor.
[2020-03-23] MEDS: cephalexin 500mg capsule PO SCH ×2 (08:21→20:23)
[2020-03-23] MEDS: pantoprazole 40mg Tablet.DR PO SCH (08:21)
[2020-03-23] MEDS: carbidoba-levodopa 25-100mg tablet PO SCH ×5 (08:22→20:57)
--- NOTE | 2020-03-23 09:05 | NUR ---
Patient needs assistance in bed. Standing up and sitting down due to muscle spasm in right hip. It took a while to get patient comfortable. Continue to monitor.
--- NOTE | 2020-03-23 09:10 | NUR ---
[facility] evaluating patient. Patient can be heard crying when speaking to Mental Health worker. Continue to monitor.
--- NOTE | 2020-03-23 09:25 | NUR ---
5150 by [facility].
--- NOTE | 2020-03-23 10:05 | NUR ---
5150 placed by [facility].
--- NOTE | 2020-03-23 11:39 | NUR ---
Patient reclining supine with support of folded blanket under her back. Patient is awake and resting. No distress observed at this time. Continue to monitor.
--- NOTE | 2020-03-23 12:35 | NUR ---
pt assisted to restroom with aerodynamicist duane ,pt was able to ambulate with little side assistance with min assistance with no trouble with gait,no distress noted,pt is very particular about things to be done her way.aerodynamicist helped the pt with getting settle to bed but pt stated that she still need to be readjusted.primary nurse is back helping pt .
--- NOTE | 2020-03-23 13:07 | NUR ---
Patient refused Mirapex for a second time. Patient states she has bottles of this at home and she doesn't take it. Patient states this med makes her shaking worse. RN to speak to Dr to cancel medication. Patient is also having a lot of muscle spasms in bilateral hips. RN to request muscle relaxer. Patient repositioned and is comfortable. Continue to monitor.
--- NOTE | 2020-03-23 13:19 | NUR ---
Patient set up for lunch. Patient able to feed herself. Continue to monitor.
[2020-03-23] MEDS ORDERED: cyclobenzaprine 10mg tablet PO PRN (14:45)
--- NOTE | 2020-03-23 15:28 | NUR ---
Patient sleepin on right side. No distress observed. Continue to monitor.
--- NOTE | 2020-03-23 16:25 | NUR ---
patient assisted to the bathroom with 2 person hand held assist with ambulation, reports she normally uses a walker to move around.Will make primary RN aware.Medicated with flexeril 5mg prn for muscle spasm.
--- NOTE | 2020-03-23 18:45 | NUR ---
Patient up to bathroom to void, patient uses walker. No assistance required.
--- NOTE | 2020-03-23 20:00 | NUR ---
Patient is cooperative and medication compliant. Patient bed in view from nursing station
[2020-03-23] MEDS: QUEtiapine 25mg tablet PO SCH (20:23)
--- NOTE | 2020-03-23 21:51 | NUR ---
Patient is resting quietly, eyes closed. Supine position in bed.
--- NOTE | 2020-03-23 22:39 | NUR ---
This fha underwriter procured an oral pharengeal swab sample via patients right nare for rapid covid test.
--- NOTE | 2020-03-23 23:14 | NUR ---
lab covid test resulted negative
--- NOTE | 2020-03-23 23:38 | NUR ---
Patients negative Covid 19 test was negative. [place] [facility] The will be accepting this patient to the care of Doctor Pearson. [facility] intake [place] make transfer arrangements with [facility] office. [facility] will do a nurse to nurse report in the am.
--- NOTE | 2020-03-24 03:00 | NUR ---
Patient sleeping quietly in supine position.
--- NOTE | 2020-03-24 04:10 | NUR ---
Patient is up to commode to void, then back to bed.
[2020-03-24 05:34] VITALS: BP 130/63
--- NOTE | 2020-03-24 05:58 | NUR ---
Sleeping quietly, low fowlers in bed.
--- NOTE | 2020-03-24 07:42 | NUR ---
Received call from [facility] office, pt to have transport orange picker machine operator pt approx 0815 this AM
[2020-03-24] MEDS: carbidoba-levodopa 25-100mg tablet PO SCH (08:13)
[2020-03-24] MEDS: cephalexin 500mg capsule PO SCH (08:13)
[2020-03-24] MEDS: pantoprazole 40mg Tablet.DR PO SCH (08:13)
[2020-03-27] MEDS ORDERED: ergocalciferol (vit D) capsule 1,250 MCG (50,000 UNITS) CAPSULE PO SCH (08:00)
== END 2020-03-24 08:58 ==
LOC: ER 16:58
DX: N39.0 Urinary tract infection, site not specified (principal); R45.851 Suicidal ideations; G20 Parkinson's disease; M19.90 Unspecified osteoarthritis, unspecified site; M81.0 Age-related osteoporosis without current pathological fracture; F12.90 Cannabis use, unspecified, uncomplicated; F41.9 Anxiety disorder, unspecified; Z86.73 Personal history of transient ischemic attack (TIA), and cerebral infarction without residual deficits; Z90.49 Acquired absence of other specified parts of digestive tract; Z60.2 Problems related to living alone; Z88.6 Allergy status to analgesic agent; Z88.5 Allergy status to narcotic agent; Z88.8 Allergy status to other drugs, medicaments and biological substances; Z79.899 Other long term (current) drug therapy
CPT/HCPCS: 36415; 80053; 80305; 80320; 80329; 81001; 85025; 87635; 99285; C9803

== ENCOUNTER 2020-04-18 02:39 | Emergency (ER) | payer MEDICARE, MEDICAID ==
[~2020-04-18] VITALS: Ht 165.1 cm; Wt 75.0 kg
--- NOTE | 2020-04-18 04:30 | NUR ---
patient in bed covers on hob 30 degrees rr even un labored no observable s/s of acute stress observed at this time will continue to monitor md aware patient here work load preventing md to sign up for patient at this time contuing monitoring will verbalize with md if any changes
--- NOTE | 2020-04-18 05:14 | NUR ---
REGISTRATION IS CURRENTLY IN ROOM CONVERSING WITH PATIENT , PATIENT NOTICABLY LAUGHING WITH REGISTRATION NO OBSERVABLE S/S OF ACUTE STRESS WILL CONTINUE TO MONITOR
[2020-04-18 05:27] VITALS: BP 127/73
--- NOTE | 2020-04-18 05:28 | NUR ---
repositioned patient in bed new blankets eyes closed rr even un labored no observable s/s of acute stress/pain at this time will continue to monitor
[2020-04-18 07:10] LABS: ALANINE AMINOTRANSFERASE 11 U/L (12-78); ALBUMIN 3.3 G/DL (3.4-5.0); ALBUMIN/GLOBULIN RATIO 0.8 (1.1-1.5); ALKALINE PHOSPHATASE 100 IU/L (46-116); ANION GAP 5 (8-16); ASPARTATE AMINO TRANSFERASE 25 U/L (10-37); BILIRUBIN,TOTAL 0.5 MG/DL (0.1-1.0); BLOOD UREA NITROGEN 28 MG/DL (7-18); BUN/CREATININE RATIO 25.9 (6.6-38.0); CALCIUM 8.7 MG/DL (8.5-10.1); CHLORIDE 107 MMOL/L (99-107); CREATININE 1.08 MG/DL (0.40-0.90); GLUCOSE 87 MG/DL (70-104); POTASSIUM 4.8 MMOL/L (3.5-5.1); SODIUM 142 MMOL/L (135-145); TOTAL CARBON DIOXIDE 29.6 MMOL/L (24-32); TOTAL PROTEIN 7.5 G/DL (6.4-8.2); eGFR 50 ML/MIN
--- NOTE | 2020-04-18 09:25 | NUR ---
HAVING DIFFICULTY GETTING [place] HOME FOR PT. ATTEMPTED TO GET PT UP TO BSC AND AMBULATE, PT C/O TOO MUCH PAIN AND WEAKNESS. CALLED [facility] WIRE WALKER WHO WILL COME AND SEE PT.
[2020-04-18] MEDS ORDERED: carbidoba-levodopa 25-100mg tablet PO ONE (10:00)
[2020-04-18] MEDS ORDERED: carbidoba-levodopa 25-100mg tablet PO SCH (10:00)
== END 2020-04-18 11:03 | disposition home or self-care (01) ==
LOC: ER 02:40
DX: N18.9 Chronic kidney disease, unspecified (principal); F41.9 Anxiety disorder, unspecified; M79.89 Other specified soft tissue disorders; G20 Parkinson's disease; M81.0 Age-related osteoporosis without current pathological fracture; M06.9 Rheumatoid arthritis, unspecified; F12.90 Cannabis use, unspecified, uncomplicated; Z86.73 Personal history of transient ischemic attack (TIA), and cerebral infarction without residual deficits; Z00.00 Encounter for general adult medical examination without abnormal findings; Z90.49 Acquired absence of other specified parts of digestive tract; Z98.51 Tubal ligation status; Z98.890 Other specified postprocedural states; Z60.2 Problems related to living alone; Z88.6 Allergy status to analgesic agent; Z88.5 Allergy status to narcotic agent; Z88.8 Allergy status to other drugs, medicaments and biological substances; Z79.899 Other long term (current) drug therapy
CPT/HCPCS: 36415; 80053; 99284

== ENCOUNTER 2020-04-19 10:21 | Emergency (ER) | payer MEDICARE, MEDICAID ==
[~2020-04-19] VITALS: Ht 166.4 cm; Wt 75.0 kg
[2020-04-19 13:22] VITALS: BP 156/56
--- NOTE | 2020-04-19 14:52 | NUR ---
PAGED PRODUCTION OPERATOR TO FIND OUT HOW TO GET PATIENT BACK HOME
--- NOTE | 2020-04-19 14:58 | NUR ---
SPOKE TO Yovany FROM [employer] AND PT CAN TAKE A CAB HOME AND PEOPLE AT HER RESIDENCE WILL BE THER TO HELP HER. YOVANY WILL BE CALLING THE RESIDENCE TO HAVE SOMEONE WAITING FOR PT
--- NOTE | 2020-04-19 15:02 | NUR ---
[facility] CALLED TO PICK PT UP THEY WILL B HERE IN AN HOUR AND A HALF
--- NOTE | 2020-04-19 17:25 | NUR ---
[facility] CAME TO PICK PT UP AND [employer]EL[employer] WAS CALLED BY [employer]OR FINISHER TO BE THERE TO HELP PT TO HOUSE. PT IS VERY RESISTANT TO DOING THINGS INDEPENDENTLY.
== END 2020-04-19 17:30 | disposition home or self-care (01) ==
LOC: ER 10:21
DX: R29.6 Repeated falls (principal); G20 Parkinson's disease; M19.90 Unspecified osteoarthritis, unspecified site; M81.0 Age-related osteoporosis without current pathological fracture; M06.9 Rheumatoid arthritis, unspecified; F41.9 Anxiety disorder, unspecified; F12.90 Cannabis use, unspecified, uncomplicated; Z86.73 Personal history of transient ischemic attack (TIA), and cerebral infarction without residual deficits; Z00.00 Encounter for general adult medical examination without abnormal findings; Z90.49 Acquired absence of other specified parts of digestive tract; Z60.2 Problems related to living alone; Z88.6 Allergy status to analgesic agent; Z88.5 Allergy status to narcotic agent; Z88.8 Allergy status to other drugs, medicaments and biological substances; Z79.899 Other long term (current) drug therapy
CPT/HCPCS: 99284

== ENCOUNTER 2020-04-20 00:22 | Emergency (ER) | payer MEDICARE, MEDICAID ==
[~2020-04-20] VITALS: Ht 165.1 cm; Wt 75.0 kg
[2020-04-20] MEDS ORDERED: midodrine 5mg tablet PO ONE (01:05)
[2020-04-20 01:59] LABS: BASOPHILS % (AUTO) 0.5 % (0-1); EOSINOPHILS # (AUTO) 0.4 X10'3 (0-0.9); EOSINOPHILS % (AUTO) 6.2 % (0-6); HEMATOCRIT 30.5 % (35.0-45.0); HEMOGLOBIN 10.3 g/dl (12.0-16.0); LYMPHOCYTES % (AUTO) 14.7 % (21-51); MEAN CORPUSCULAR HEMOGLOBIN 30.8 PG (27.0-31.0); MEAN CORPUSCULAR HGB CONC 33.8 g/dL (33.0-36.5); MEAN CORPUSCULAR VOLUME 91.4 FL (78-98); MEAN PLATELET VOLUME 7.5 FL (7.4-10.4); MONOCYTES # (AUTO) 0.3 X10'3 (0-0.9); NEUTROPHILS # (AUTO) 5.1 X10'3 (1.8-7.7); NEUTROPHILS % (AUTO) 73.6 % (42-75); PLATELET COUNT 219 X10'3 (140-440); RED BLOOD COUNT 3.34 X10'6 (4.20-5.60)
[2020-04-20 02:04] LABS: ALANINE AMINOTRANSFERASE 10 U/L (12-78); ALBUMIN/GLOBULIN RATIO 0.8 (1.1-1.5); ALKALINE PHOSPHATASE 95 IU/L (46-116); ANION GAP 9 (8-16); ASPARTATE AMINO TRANSFERASE 40 U/L (10-37); BILIRUBIN,TOTAL 0.6 MG/DL (0.1-1.0); BLOOD UREA NITROGEN 27 MG/DL (7-18); BUN/CREATININE RATIO 29.7 (6.6-38.0); CALCIUM 8.3 MG/DL (8.5-10.1); CHLORIDE 107 MMOL/L (99-107); CREATININE 0.91 MG/DL (0.40-0.90); GLUCOSE 107 MG/DL (70-104); POTASSIUM 3.5 MMOL/L (3.5-5.1); SODIUM 143 MMOL/L (135-145); TOTAL PROTEIN 6.7 G/DL (6.4-8.2); eGFR 61 ML/MIN
[2020-04-20 04:28] VITALS: BP 115/70
== END 2020-04-20 04:40 | disposition home or self-care (01) ==
LOC: ER 00:23
DX: I95.9 Hypotension, unspecified (principal); R29.6 Repeated falls; G20 Parkinson's disease; M19.90 Unspecified osteoarthritis, unspecified site; M06.9 Rheumatoid arthritis, unspecified; F41.9 Anxiety disorder, unspecified; F12.90 Cannabis use, unspecified, uncomplicated; Z86.73 Personal history of transient ischemic attack (TIA), and cerebral infarction without residual deficits; Z90.49 Acquired absence of other specified parts of digestive tract; Z60.2 Problems related to living alone; Z88.6 Allergy status to analgesic agent; Z88.5 Allergy status to narcotic agent; Z88.8 Allergy status to other drugs, medicaments and biological substances; Z79.899 Other long term (current) drug therapy
CPT/HCPCS: 36415; 80053; 85025; 99285

== ENCOUNTER 2020-04-29 09:33 | Emergency (ER) | payer MEDICARE, MEDICAID ==
[~2020-04-29] VITALS: Ht 162.6 cm; Wt 84.0 kg
--- NOTE | 2020-04-29 10:20 | NUR ---
Patient is sleeping on her left side with no signs of distress.
[2020-04-29 11:06] LABS: CLARITY,URINE SLIGHTLY CLOUDY (Clear); COLOR,URINE YELLOW (Yellow); GLUCOSE, URINE NEGATIVE (Neg); KETONES,URINE TRACE mg/dl (Neg); LEUKOCYTE ESTERASE ,URINE NEGATIVE (Neg); OCCULT BLOOD,URINE NEGATIVE (Neg); PROTEIN,URINE NEGATIVE (Neg); UROBILINOGEN,URINE 0.2 E.U/dL (0.2-1.0)
[2020-04-29 11:17] LABS: UA COLLECTION TYPE STRAIGHT CATH
[2020-04-29 11:22] LABS: NITRITES, URINE NEGATIVE (Neg)
[2020-04-29 11:23] LABS: MUCUS STRANDS FEW /LPF (Neg); SQUAMOUS EPITHELIAL CELL,UR FEW /LPF (FEW)
[2020-04-29 11:24] LABS: BACTERIA,URINE FEW /HPF (Neg); RBC,URINE 0-2 /HPF (0-2); WBC,URINE 0-4 /HPF (0-4)
[2020-04-29 11:41] LABS: BASOPHILS % (AUTO) 0.4 % (0-1); EOSINOPHILS # (AUTO) 0.2 X10'3 (0-0.9); EOSINOPHILS % (AUTO) 3.3 % (0-6); HEMATOCRIT 27.3 % (35.0-45.0); LYMPHOCYTES # (AUTO) 0.6 X10'3 (1.1-4.8); LYMPHOCYTES % (AUTO) 9.2 % (21-51); MEAN CORPUSCULAR HEMOGLOBIN 29.6 PG (27.0-31.0); MEAN CORPUSCULAR HGB CONC 33.1 g/dL (33.0-36.5); MEAN CORPUSCULAR VOLUME 89.5 FL (78-98); MEAN PLATELET VOLUME 7.2 FL (7.4-10.4); MONOCYTES # (AUTO) 0.4 X10'3 (0-0.9); MONOCYTES % (AUTO) 6.5 % (2-12); NEUTROPHILS # (AUTO) 5.3 X10'3 (1.8-7.7); NEUTROPHILS % (AUTO) 80.6 % (42-75); PLATELET COUNT 226 X10'3 (140-440); RED BLOOD COUNT 3.05 X10'6 (4.20-5.60); RED CELL DISTRIBUTION WIDTH 15.8 % (11.5-14.5); WHITE BLOOD COUNT 6.6 X10'3 (4.5-11.0)
[2020-04-29 11:54] LABS: ALBUMIN 2.9 G/DL (3.4-5.0); ALBUMIN/GLOBULIN RATIO 0.7 (1.1-1.5); ALKALINE PHOSPHATASE 88 IU/L (46-116); ANION GAP 5 (8-16); ASPARTATE AMINO TRANSFERASE 14 U/L (10-37); BILIRUBIN,TOTAL 0.8 MG/DL (0.1-1.0); BLOOD UREA NITROGEN 23 MG/DL (7-18); BUN/CREATININE RATIO 22.5 (6.6-38.0); CALCIUM 8.5 MG/DL (8.5-10.1); CHLORIDE 107 MMOL/L (99-107); CREATININE 1.02 MG/DL (0.40-0.90); GLUCOSE 93 MG/DL (70-104); POTASSIUM 3.7 MMOL/L (3.5-5.1); SODIUM 138 MMOL/L (135-145); TOTAL CARBON DIOXIDE 25.6 MMOL/L (24-32); TOTAL PROTEIN 7.1 G/DL (6.4-8.2); eGFR 53 ML/MIN
[2020-04-29 12:05] LABS: ALANINE AMINOTRANSFERASE 7 U/L (12-78)
[2020-04-29] MEDS ORDERED: carbidoba-levodopa 25-100mg tablet PO SCH (13:15)
[2020-04-29] MEDS ORDERED: carbidoba-levodopa 25-100mg tablet PO ONE (13:20)
[2020-04-29] MEDS ORDERED: iohexol 300mg/ml 100ml inj. ONE (13:36)
--- NOTE | 2020-04-29 16:53 | NUR ---
Spoke to [place] who supervises the home that the patient lives at. She states she will have a member of the facility waiting with her wheelchair to assist her inside.
[2020-04-29 17:46] VITALS: BP 120/43
[2020-04-30 08:24] LABS: OCCULT BLOOD STOOL NEGATIVE (Neg)
[2020-05-02] MEDS ORDERED: ESCI5TAB12 PO (13:59)
== END 2020-04-29 17:53 | disposition home or self-care (01) ==
LOC: ER 09:33
DX: M79.672 Pain in left foot (principal); M79.671 Pain in right foot; D64.9 Anemia, unspecified; G20 Parkinson's disease; M19.90 Unspecified osteoarthritis, unspecified site; M81.0 Age-related osteoporosis without current pathological fracture; M06.9 Rheumatoid arthritis, unspecified; F41.9 Anxiety disorder, unspecified; F12.90 Cannabis use, unspecified, uncomplicated; Z86.73 Personal history of transient ischemic attack (TIA), and cerebral infarction without residual deficits; Z90.49 Acquired absence of other specified parts of digestive tract; Z60.2 Problems related to living alone; Z88.6 Allergy status to analgesic agent; Z88.5 Allergy status to narcotic agent; Z88.8 Allergy status to other drugs, medicaments and biological substances; Z79.899 Other long term (current) drug therapy
CPT/HCPCS: 36415; 74177; 80053; 81001; 82272; 85025; 99285; Q9967

== ENCOUNTER 2020-05-01 04:29 | Emergency (ER) | payer MEDICARE, MEDICAID ==
[~2020-05-01] VITALS: Ht 165.1 cm; Wt 68.2 kg
--- NOTE | 2020-05-01 05:34 | NUR ---
PT REPORTS SOB. AWARE.
[2020-05-01] MEDS ORDERED: LORazepam 1 MG tablet PO ONE (05:35)
[2020-05-01 06:48] VITALS: BP 136/57
--- NOTE | 2020-05-01 07:20 | NUR ---
CALL TO [facility] TO TRANSPORT PATIENT, STATED THEY ARE UNABLE TO SERVICE THAT AREA, JACKIE RAYMUNDO MADE AWARE.
--- NOTE | 2020-05-01 07:30 | NUR ---
CALL TO [facility] FOR TRANSPORTATION OF PATIENT BACK HOME, NO ANSWER, MESSAGE LEFT BY LARY PIZAROR.
--- NOTE | 2020-05-01 08:51 | NUR ---
SECOND CALL TO [facility] FOR TRANSPORTATION AT THIS TIME. NO ANSWER, LEFT MESSAGE. PATIENT TRANSFERED TO WHEELCHAIR PER REQUEST FOR COMFORT, ALL NEEDS ATTENDED TO.
--- NOTE | 2020-05-01 09:23 | NUR ---
SPOKE WITH [facility]UP[facility] PEDROZA REGARDING TRANSPORTATION, PATIENT HAS GONE VIA [facility] IN PAST AND IS SAFE TO DO SO AT THIS TIME, CALL TO ALEXI TRUONG [phone] TO HAVE WHEELCHAIR STANDBY AT ARRIVAL.
[2020-05-02] MEDS ORDERED: ESCI5TAB12 PO (13:59)
== END 2020-05-01 09:52 | disposition home or self-care (01) ==
LOC: ER 04:30
DX: R06.02 Shortness of breath (principal); M79.662 Pain in left lower leg; G89.29 Other chronic pain; R10.84 Generalized abdominal pain; M19.90 Unspecified osteoarthritis, unspecified site; F12.90 Cannabis use, unspecified, uncomplicated; Z86.73 Personal history of transient ischemic attack (TIA), and cerebral infarction without residual deficits; Z90.49 Acquired absence of other specified parts of digestive tract; Z98.51 Tubal ligation status; Z60.2 Problems related to living alone; Z91.018 Allergy to other foods; Z88.6 Allergy status to analgesic agent; Z79.899 Other long term (current) drug therapy; Z91.012 Allergy to eggs; Z88.5 Allergy status to narcotic agent
CPT/HCPCS: 36415; 71045; 87635; 99284

== ENCOUNTER 2020-09-14 07:17 | Emergency (ER) | payer MEDICARE, MEDICAID ==
[~2020-09-14] VITALS: Ht 165.1 cm; Wt 75.0 kg
[~2020-09-14 07:17] MED LIST changes: +DOCU100C40 PO; +ESCI5TAB17 PO; +FLO0.1T PO; +GABA-534 PO; +LACT1CAP26 PO; +MIDO5TAB4 PO; +PANT40TA54 PO; +gabapentin capsule PO
[2020-09-14 07:18] VITALS: BP 123/71
[2020-09-14 08:12] LABS: CLARITY,URINE CLEAR (Clear); COLOR,URINE YELLOW (Yellow); GLUCOSE, URINE NEGATIVE (Neg); KETONES,URINE NEGATIVE (Neg); LEUKOCYTE ESTERASE ,URINE NEGATIVE (Neg); NITRITES, URINE NEGATIVE (Neg); OCCULT BLOOD,URINE TRACE-INTACT (Neg); PROTEIN,URINE NEGATIVE (Neg)
[2020-09-14 08:15] LABS: UA COLLECTION TYPE STRAIGHT CATH
[2020-09-14 08:16] LABS: BACTERIA,URINE NONE SEEN /HPF (Neg); MUCUS STRANDS NONE SEEN /LPF (Neg); RBC,URINE 0-2 /HPF (0-2); SQUAMOUS EPITHELIAL CELL,UR FEW /LPF (FEW); WBC,URINE NONE SEEN /HPF (0-4)
--- NOTE | 2020-09-14 08:33 | NUR ---
pt fully saturated chux in bed no problems urinating.
== END 2020-09-14 09:34 | disposition home or self-care (01) ==
LOC: ER 07:18
DX: R51.9 Headache, unspecified (principal); F03.90 Unspecified dementia, unspecified severity, without behavioral disturbance, psychotic disturbance, mood disturbance, and anxiety; G20 Parkinson's disease; M19.90 Unspecified osteoarthritis, unspecified site; F41.9 Anxiety disorder, unspecified; M06.9 Rheumatoid arthritis, unspecified; Z86.73 Personal history of transient ischemic attack (TIA), and cerebral infarction without residual deficits; Z90.49 Acquired absence of other specified parts of digestive tract; F12.90 Cannabis use, unspecified, uncomplicated; Z60.2 Problems related to living alone; Z88.6 Allergy status to analgesic agent; Z91.012 Allergy to eggs; Z91.018 Allergy to other foods; Z88.5 Allergy status to narcotic agent; Z79.899 Other long term (current) drug therapy
CPT/HCPCS: 81001; 99284